=== PATIENT | female | born 1960 | race Caucasian/White ===

== ENCOUNTER 2016-07-05 13:57 | Inpatient (IN) ==
[2016-07-05] MEDS ORDERED: ASPIRIN 325 MG TABLET PO STA (14:12)
[2016-07-05] MEDS ORDERED: NITROGLYCERIN 2% OINT 1 INCH/GM PACK TOP STA (14:12)
[2016-07-05] MEDS ORDERED: ONDANSETRON 4 MG/2 ML VIAL IV PRN ×2 (14:12→15:15)
[2016-07-05] MEDS ORDERED: NITROGLYCERIN SL 0.4 MG TABLET SL PRN (14:12)
[2016-07-05] MEDS ORDERED: MORPHINE 2 MG/1 ML SYRINGE IV PRN (14:12)
--- NOTE | 2016-07-05 14:17 | EKG Report ---
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
[2016-07-05] MEDS ORDERED: ENOXAPARIN 60 MG/0.6 ML SYRINGE SUBCUT STA (14:33)
--- NOTE | 2016-07-05 14:34 | Emergency Department Note ---
Gardenia Kong Brittany, am scribing for, and in the presence of, Gian Daniels MD 14: 29. Frances Kong James D, MD, personally performed the services described in this documentation, ascribed by Elizabeth Varner in my presence, and it is both accurate and complete 433 . Arrival - Arrival Chief Complaint: Chest Pain Stated Complaint: chest and arm leg pain ED Nursing Triage Note: C/o intermittent midsternal chest pain radiating into neck-onset "months" ago. Reports pain worsens and she becomes SOB with exertion. Reports pain relief after taking sublingual NTG x's 3 last night. Mode of Arrival: Ambulatory Limitations: No Limitations Source: Patient, Old Records Reviewed, RN Notes Reviewed Time Seen by Provider: 07/05/16 14:12 - History of Present Illness HPI Narrative: This is a 56 y/o white female,who presents to the ED with c/o CP which started "years" ago. She states she was seen by Dr. Melo in 2006 for the same complaint and he was really unable to tell her what was going on. She states she was being seen by Dr. Steven until recently for back/neck problems. She states the chest pain goes down her left arm to her left leg. She states the left leg has been "going to sleep" after just sitting for a little while. She states she is SOB with the chest pain. She reports the SOB is worse with exertion. She gets diaphoretic with the chest pain as well. The chest pain is worse when laying down as well. She reports she was having a Carotid Artery US today and wanted to be seen in the ED. She reports she is scared and wants answers to why she is having the chest pain. Patient was seen in [address] Melo and underwent a stress test which was positive for anterolateral ischemia but patient did not want to undergo left heart cath. The patient did have some chest pain at rest last night for which she took 3 nitroglycerin and had relief of her pain. Pt has other complaints/pain in the ED at this time. Pt armstrong a PMHx of HTN and back/neck problems. Pt has had a hysterectomy. Pt denies a family medical HX. Pt is a current every day smoker. Onset (ago): year(s) ("Years" Per pt) Consistency: constant Severity: moderate Date of Last Menstrual Period: hysterectomy Allergies/Adverse Reactions: Allergies Allergy/AdvReac Type Severity Reaction Status Date / Time Erythromycin Base Allergy RASH Verified 07/05/16 14:08 latex Allergy RASH Verified 07/05/16 14:08 Review of System - Review of System 12 point system: reviewed and no additional remarkable complaints except as stated - Review of System Cardiovascular: Present: chest pain, dyspnea on exertion, orthopnea Medical,Surgical,& Family Hx - Medical History Cardio: History of: Hypertension Musculoskeletal: History of: Back/Neck Problems - Surgical History Reproductive Surgeries: Surgical HX of;: Hysterectomy - Social History Smoking Status: Current every day smoker Frequency of Alcohol Use: None Type of Drug Use: None Exam Vital Signs: Vital Signs Temperature 98.5 F 07/05/16 14:03 Pulse Rate 93 H 07/05/16 14:03 Respiratory Rate 14 07/05/16 14:16 Blood Pressure 111/57 07/05/16 14:03 O2 Sat by Pulse Oximetry 98 07/05/16 14:03 GENERAL: This is a well-nourished well-developed white female in no apparent distress. Patient became tearful during interview. VITAL SIGNS: Reviewed HEENT: Head is atraumatic and normocephalic. Pupils are equal round react to light. Extraocular movements are intact. Oropharynx is benign with moist mucous membranes. NECK: Neck is soft and supple without tenderness. There are no masses. There is no lymphadenopathy. LUNGS: Lungs are clear to auscultation. Chest rises symmetrically. There is no chest wall tenderness. CV: Heart is regular rate and rhythm without murmurs rubs or gallops. ABDOMEN: Abdomen is soft, nontender to palpation. There are no abdominal abnormal masses palpated. There is no organomegaly. Bowel sounds are present and active. SKIN: Skin is warm and dry. No rash. EXTREMITIES: Patient has full range of motion without tenderness. There is no pedal edema. NEUROLOGIC: Awake alert and oriented 4. Cranial nerves II through XII are grossly intact. Motor is 5 over 5 in all extremities bilaterally. Course - Consultations Consultation #1: Cardiology was consulted. Patient will be admitted to their service. Patient needs to undergo left heart cath. Patient will be taken by Dr. Prather to the [facility] for left heart cath. Time: 14:43 Results - Labs CBC & BMP: 07/05/16 14:30 07/05/16 14:30 Lab Results: I have reviewed the patients labs Labs: Laboratory Tests 07/05/16 14:30 Troponin I 1.670 H - EKG EKG results: interpreted by ERMD - Impressions EKG: Normal sinus rhythm with the rate of 84, incomplete right bundle branch block, nonspecific ST-T wave changes, prolonged QT, normal axis. - Diagnostic Findings Procedure: Chest x-ray: image reviewed by me Disposition Clinical Impression: Chest pain, Nicotine dependence, History of hyperlipidemia, ACS (acute coronary syndrome) Case discussed with: patient Disposition: Still a Patient Condition: Stable Time of Disposition: 14:38
[2016-07-05 14:39] LABS: Basophils # 0.1 10*3/uL (0.0-0.2); Basophils % 0.5 % (0.0-0.8); Eosinophils # 0.1 10*3/uL (0.0-0.87); Eosinophils % 0.8 % (0.00-10.9); Hematocrit 33.8 VOL% (35.7-47.0); Hemoglobin 11.2 GM/DL (12.0-16.0); Immature Granulocytes % 0.4 %; Immature Granulocytes Absolute 0.04 #; Lymphocytes # 1.7 10*3/uL (1.4-4.0); Lymphocytes % 16.6 % (21.3-54.2); Mean Corpuscular HGB Conc 33.1 GM/DL (32-36); Mean Corpuscular Hemoglobin 31 PG (27-34); Mean Corpuscular Volume 92.3 FL (87-102); Mean Platelet Volume 10.5 FL (9.6-12.0); Monocytes # 0.7 10*3/uL (0.11-0.8); Monocytes % 7.1 % (1.7-12.7); Neutrophils # 7.6 10*3/uL (1.4-7.4); Neutrophils % 74.6 % (38.7-73.9); Platelet Count 214 10*3/uL (130-400); Red Blood Count 3.66 10*6/uL (3.8-5.5); Red Cell Distribution Width 13.9 % (9.3-17.3); White Blood Count 10.2 10*3/uL (4.5-13.71)
[2016-07-05] MEDS ORDERED: NITROGLYCERIN 2% OINT 1 INCH/GM PACK TOP ONE (14:48)
[2016-07-05] MEDS ORDERED: ENOXAPARIN 60 MG/0.6 ML SYRINGE ONE (14:48)
[2016-07-05] MEDS ORDERED: ASPIRIN 325 MG TABLET ONE (14:48)
[2016-07-05 14:49] LABS: PT Patient Result 10.6 SECS; Partial Thromboplastin Time 27.3 SECS (0-40)
[2016-07-05 15:00] LABS: Alanine Aminotransferase 13 U/L (13-56); Albumin 3.5 G/DL (3.4-5.0); Alkaline Phosphatase 101 U/L (45-117); Aspartate Amino Transferase 15 U/L (0-37); Bilirubin,Total < 0.39 MG/DL (0.2-1.0); Blood Urea Nitrogen 8 MG/DL (7-18); Calcium 8.5 MG/DL (8.5-10.1); Glucose 99 MG/DL (74-106); Osmolality,Calculated 276.4 MOS/KG (273-304); Potassium 3.4 MMOL/L (3.5-5.1); Sodium 140 MMOL/L (136-145); Total Protein 6.7 G/DL (6.4-8.3)
[2016-07-05] MEDS ORDERED: BISACODYL 5 MG TABLET PO PRN (15:15)
[2016-07-05] MEDS ORDERED: MAGNESIUM SULF RIDER 2 GM in PREMIX 1 EACH IV PRN ×2 (15:15→15:21)
[2016-07-05] MEDS ORDERED: ACETAMINOPHEN 325 MG TABLET PO PRN (15:15)
[2016-07-05] MEDS ORDERED: MAGNESIUM SULF RIDER 4 GM in PREMIX 1 EACH IV PRN (15:15)
[2016-07-05] MEDS ORDERED: DOCUSATE SODIUM 100 MG CAPSULE PO PRN (15:15)
[2016-07-05] MEDS ORDERED: ZALEPLON 5 MG CAPSULE PO PRN (15:15)
[2016-07-05] MEDS ORDERED: LACTULOSE 20 GM/30 ML UDCUP PO PRN (15:15)
[2016-07-05] MEDS ORDERED: DIAZEPAM 5 MG TABLET PO ONE (15:21)
[2016-07-05] MEDS ORDERED: POTASSIUM CHLORIDE RIDER 10 MEQ in PREMIX 1 EACH IV PRN (15:21)
[2016-07-05] MEDS ORDERED: diphenhydrAMINE CAP 25 MG CAPSULE PO ONE (15:21)
[2016-07-05] MEDS ORDERED: ASPIRIN CHEW 81 MG TABLET PO STA (15:29)
--- NOTE | 2016-07-05 15:29 | Cardiology History & Physical ---
Assessment and Plan - Time spent with patient Time spent with patient: Less than 30 minutes (1) NSTEMI (non-ST elevated myocardial infarction) Status: Acute Assessment and plan: Patient is being prepared for cardiac catheterization. Current Visit: Yes (2) Abnormal stress test Status: Chronic Assessment and plan: Abnormal stress test [address] Melo. Patient declined heart catheterization and preferred medical management. She did not return for follow -up. Current Visit: Yes (3) History of hyperlipidemia Status: Chronic Assessment and plan: Continue lipid-lowering agent. Fasting lipid profile in the morning. Current Visit: Yes (4) Nicotine dependence Status: Chronic Assessment and plan: Patient was counseled regarding the need for tobacco cessation. Current Visit: Yes Qualifiers: Nicotine product type: cigarettes History of Present Illness Chief complaint: chest pain History of present illness: Patient is being seen in the emergency department by myself and Dr. Prather. Ms. Bradshaw is a 56 year old female who saw Dr. Melo in 2013. Risk factors include: Hypertension, family history of premature coronary artery disease, tobaccoism. 2014, patient underwent nuclear stress testing which was positive suggesting inferolateral ischemia. Patient preferred medical therapy and declined cardiac catheterization. She did not return for follow-up with Dr. Melo. Patient reports that she has been having chest pain for several years. Last night, patient expressed chest pain for which she took 3 nitroglycerin and had relief of her pain. The chest discomfort is not necessarily associated with shortness of breath although she states she has been more short of breath with exertion over the past several weeks. He has chronic neck and back pain so it is difficult for her to identify whether the chest pain is radiating or not. She can identify no aggravating factors. And again, the nitroglycerin relieved the chest discomfort she had last night. At this time, she tells me she is beginning to have chest pressure in the center of her chest which had previously been relieved. She rates the discomfort as a 7 on a scale of 1-10. Her first troponin is back is noted to be 1.6. EKG does reveal abnormalities but does not reveal ST elevation. Patient is being prepped to go to the cardiac catheterization lab where Dr. Prather we'll perform cardiac catheterization. Patient has already had a 325 mg enteric-coated aspirin. She swallowed and did not achieve this. She is being given 81 mg aspirin4 tablets. She's had Lovenox And nitroglycerin paste. Blood pressure will not allow for beta jelani. Allergies Allergy/AdvReac Type Severity Reaction Status Date / Time Erythromycin Base Allergy RASH Verified 07/05/16 14:08 latex Allergy RASH Verified 07/05/16 14:08 Review of systems: REVIEW OF SYSTEMS: - Constitutional Constitutional: Present: Fatigue. Absent: syncope, anorexia, night sweats - EENT Eyes: Absent: blurry vision, loss of vision, diplopia Ears: Absent: decreased hearing, ear pain, ear discharge - Cardiovascular Cardiovascular: Present: chest pain with exertion and chest pain at rest, dyspnea on exertion. Denies edema or palpitations. - Respiratory Respiratory: Present: GABRIEL. Absent: wheezing, hemoptysis, change in phlegm color - Gastrointestinal Gastrointestinal: As constipation or abdominal pain. No hematemesis, hematochezia, melena, change in bowel habits, nausea - Genitourinary Genitourinary: Absent: difficulty urinating, dysuria, urinary hesitancy, flank pain - Musculoskeletal Musculoskeletal: Present: back pain, neck pain shoulder pain Absent: joint swelling, muscle cramps, muscle weakness - Neurological Neurological: Present: normal gait without frequent falls. Absent: dizziness, hemiparesis - Psychiatric Psychiatric: Absent: anxiety, depression, difficulty concentrating - Endocrine Endocrine: Present: fatigue. Absent: cold intolerance, heat intolerance, polyuria, polyphagia, polydipsia - Hematologic/Lymphatic Hematologic/Lymphatic: Present: easy bruising. Absent: easy bleeding -Integumentary Integumentary: Absent: lesions, rashes, skin breakdown My physical Medical,Surgical,& Family Hx - Medical History Cardio: History of: Hypertension No history of: [place] Musculoskeletal: History of: Back/Neck Problems - Surgical History Reproductive Surgeries: Surgical HX of;: Hysterectomy - Social History Smoking Status: Current every day smoker Have you smoked in the last 12 months: Yes Time spent discussing smoking cessation with patient: 3 to 10 minutes Frequency of Alcohol Use: None Type of Drug Use: None Marital Status: Lives With:: Spouse Functional capacity: independent ambulation Cardiology Physical Exam - Constitutional Vitals: Vital Signs Temp Pulse Resp BP Pulse Ox 98.5 F 93 H 14 111/57 98 07/05/16 14:03 07/05/16 14:03 07/05/16 14:16 07/05/16 14:03 07/05/16 14:03 Intake and Output 07/04/16 07/05/16 07/05/16 23:59 07:59 15:59 Other: Weight 58.967 kg Patient Weight 07/05/16 23:59 Weight 58.967 kg Exam: General: Appears well with no apparent distress. Pleasant and cooperative. Appears comfortable. HEENT: PERRL, normocephalic, atraumatic. Mucous membranes moist. No jaundice noted. Conjunctiva moist and clear, sclerae anicteric Neck: No JVD/HJR, no thyromegaly or lymphadenopathy noted. No carotid bruit appreciated Cardiac: Regular rate and rhythm. No murmur rub or gallop. Lungs: Clear to auscultation without accessory muscle use to assist the respiratory pattern. Wearing oxygen. Abdomen: Soft, bowel sounds normoactive. Nontender and nondistended. No abdominal bruit or thrill noted. No masses noted. Musculoskeletal: No fluid collection. Decreased range of motion is noted. Extremities: No clubbing, cyanosis noted. No edema noted. Upper extremity pulses 2+. Lower extremity pulses 2+. Capillary refill less than 3 seconds. Skin: No unusual lesions or rashes. No skin breakdown appreciated. Neuro: Awake, alert and oriented 3. Moves all extremities well without hemiparesis or paralysis. No essential tremor is appreciated. Result/EKG - Labs CBC & BMP: 07/05/16 14:30 07/05/16 14:30 Lab Results: I have reviewed the past 24 hour labs Labs: Laboratory Results - last 24 hr 07/05/16 07/05/16 07/05/16 14:30 14:30 14:30 WBC 10.2 RBC 3.66 L Hgb 11.2 L Hct 33.8 L MCV 92.3 MCH 31 MCHC 33.1 RDW 13.9 Plt Count 214 MPV 10.5 Neut % (Auto) 74.6 H Lymph % (Auto) 16.[address] [place] % (Auto) 7.1 Eos % (Auto) 0.8 Baso % (Auto) 0.5 Neut # (Auto) 7.6 H Lymph # (Auto) 1.7 [place] # (Auto) 0.7 Eos # (Auto) 0.1 Baso # (Auto) 0.1 Immature Gran % 0.4 Nucleated RBC % 0.0 Immature Gran # 0.04 Nucleated RBCs # 0.00 INR 1.0 PT Patient/Control Mix 10.6 Circ Anticoag PTT 27.3 Sodium 140 Potassium 3.4 L Chloride 103 Carbon Dioxide 24 Anion Gap 16.4 H BUN 8 Creatinine 0.90 GFR Calculation 66 BUN/Creatinine Ratio 8.00 Glucose 99 Calculated Osmolality 276.4 Calcium 8.5 Total Bilirubin < 0.39 AST 15 ALT 13 Alkaline Phosphatase 101 Troponin I Total Protein 6.7 Albumin 3.5 Globulin 3.2 Albumin/Globulin Ratio 1.0 L 07/05/16 14:30 WBC RBC Hgb Hct MCV MCH MCHC RDW Plt Count MPV Neut % (Auto) Lymph % (Auto) [place] % (Auto) Eos % (Auto) Baso % (Auto) Neut # (Auto) Lymph # (Auto) [place] # (Auto) Eos # (Auto) Baso # (Auto) Immature Gran % Nucleated RBC % Immature Gran # Nucleated RBCs # INR PT Patient/Control Mix Circ Anticoag PTT Sodium Potassium Chloride Carbon Dioxide Anion Gap BUN Creatinine GFR Calculation BUN/Creatinine Ratio Glucose Calculated Osmolality Calcium Total Bilirubin AST ALT Alkaline Phosphatase Troponin I 1.670 H Total Protein Albumin Globulin Albumin/Globulin Ratio - Diagnostic Findings Procedure: Chest x-ray: report reviewed by me - EKG EKG results: interpreted by me EKG shows: sinus rhythm
[2016-07-05] MEDS ORDERED: SODIUM CHLORIDE 0.45% 1,000 ML IV SCH (15:30)
[2016-07-05] MEDS ORDERED: diphenhydrAMINE CAP 50 MG CAPSULE ONE (15:31)
[2016-07-05] MEDS ORDERED: LIDOCAINE 1% 20 ML VIAL ONE (15:35)
[2016-07-05] MEDS ORDERED: MEPERIDINE 25 MG/1 ML VIAL ONE (15:45)
[2016-07-05] MEDS ORDERED: MIDAZOLAM 2 MG/2 ML VIAL ONE (15:45)
[2016-07-05 15:49] LABS: Apearance,Urine CLEAR (Clear); Bilirubin,Urine Negative (Negative); Blood, Urine Negative (Negative); Glucose,Urine (UA) Negative (Negative); Ketones,Urine Negative (Negative); Nitrite,Urine Negative (Negative); Protein,Urine Negative; Urine Color Colorless (Yellow); Urine Specific Gravity 1.001 (1.001-1.035); Urine Urobilinogen < 2.0 EU/DL (0.2-1.0); WBC,Urine <1 /HPF (0-6)
--- NOTE | 2016-07-05 15:50 | XRay Report ---
Exam: XR chest 1V portable Date: 07/05/2016 2:12 PM Indication: Chest pain Comparison: AP portable Technical: AP portable Findings: Cardiomegaly is present. Mild interstitial thickening present. No obvious effusions. ASVD is present. Bony structures are unremarkable. No pneumothorax. No consolidating pulmonary infiltrate. Impression: 1. Cardiomegaly with mild interstitial edema PROCEDURE INTERPRETED AT [facility] DEPARTMENT OF RADIOLOGY Final Report Signed by: Dr. Francisco Ward
--- NOTE | 2016-07-05 15:52 | History and Physical Update ---
Sedation H&P Update - History and Physical H&P was reviewed, the patient examined and there: are no changes in the patients condition since last H&P was completed. - Dictation Physical: refer to H&P completed by admitting physician - Physical Exam Mental Status: alert and oriented Heart: regular rate and rhythm Lung: clear to auscultation Abdomen: within normal limits Vitals: within normal limits - Sedation Plan for Sedation: minimal Patient Consent: Procedure disscussed with patient and patinet has consented., Risks and benefits were discussed with patient,including infection,, bleeding, injury to surrounding structures, seizure, temporary nerve, Patient understands and accepts potential risks/benefits and agrees to, proceed. ASA Class: III Airway Assessment: Class II: Soft palate, uvula, fauces visible
[2016-07-05] MEDS ORDERED: methylPREDNISolone SOD SUC 125 MG/2 ML VIAL ONE (15:53)
[2016-07-05 15:58] LABS: Barbiturates Screen,Urine Negative (Negative); Benzodiazepines Screen,Urine Negative (Negative); Cannabinoid Screen,Urine Negative (Negative); Opiate Screen,Urine Negative (Negative); Phencyclidine Screen,Urine Negative (Negative)
[2016-07-05] MEDS ORDERED: HEPARIN/NACL 0.9% 2 UNITS/ML 500 ML IV ONE (16:34)
[2016-07-05] MEDS ORDERED: CARVEDILOL 6.25 MG TABLET PO SCH ×3 (16:50→23:00)
--- NOTE | 2016-07-05 16:57 | Operative Note ---
Date of procedure: 07/05/16 Procedure Preformed: Left heart cath Left ventriculography Coronary angiography Angiogram of the right femoral artery Placement of intra-aortic balloon pump-4 post infarction angina, left main coronary disease, LV dysfunction, 2+ MR, LVEDP Surgeon / Physician: Armaan Prather Locks Tender: Yuli Gordillo Post-op diagnosis: same (Status post non-Q-wave CT, postinfarction angina, smoker,) Findings: Impression: Significant left main coronary disease-ostial, 70%, dampening of pressure with the engagement of the catheter Occluded left circumflex with some left to left and [id number] collaterals Occluded right coronary-proximal with right to right and [id number] collaterals Moderately severe left ventricular systolic dysfunction, LVEF is 30% 2+ mitral regurgitation Severe elevation of LVEDP, 35-40 mmHg Angiogram the femoral artery Placement of intra-aortic balloon pump-for postinfarction angina, LV systolic dysfunction, high LVEDP, 2+ MR Plan/recommendations: The patient will have risk factors optimized. I discussed with her about trying to stop smoking. I will check her lipids and treatment guidelines. Regarding her coronary disease, it will require coronary bypass grafting. Dr. Doe Correia has been consulted. With the balloon pump, postinfarction angina has gone. There is probably in part related to relief of the high LVEDP. The patient will be on antiplatelet medications to include aspirin indefinitely. Follow-up will be scheduled. My post-cath check to Addenda: I saw the patient post-cath. the groin puncture site and distal pulse are stable. vital signs are stable and the patient will be observed closely overnight. Specimens: none sent Estimated blood loss: minimal Condition: other (guarded) Anesthesia: local, conscious sedation Disposition: ICU
[2016-07-05] MEDS ORDERED: GLUCAGON 1 MG VIAL IM PRN ×2 (17:29→17:37)
[2016-07-05] MEDS ORDERED: DEXTROSE 50% 25 GM/50 ML VIAL IV PRN ×2 (17:29→17:37)
[2016-07-05] MEDS ORDERED: CEFUROXIME INJ 1,500 MG in SODIUM CHLORIDE 0.9% 100 ML IV ONE (17:29)
--- NOTE | 2016-07-05 17:29 | Cardiothoracic Progress Note ---
Cardiothoracic Subjective Interval history: Patient is a 56-year-old lady with substernal chest discomfort and cardiac catheterization today demonstrating critical left main coronary stenosis in the presence of a right coronary occlusion. Patient is presently stable on the intra-aortic balloon pump and will be scheduled for surgery in the morning. Discussed in detail with the patient and she agrees. Exam (Progress Note) - Constitutional Vitals: Period Temp Pulse Resp BP Sys/Briones Pulse Ox Last 24 Hr 98.5 F-98.5 F 83-94 14-18 105-111/57-90 98-99 Result/EKG - Labs CBC & BMP: 07/05/16 14:30 07/05/16 14:30 Labs: Laboratory Results - last 24 hr 07/05/16 07/05/16 07/05/16 14:30 14:30 14:30 WBC 10.2 RBC 3.66 L Hgb 11.2 L Hct 33.8 L MCV 92.3 MCH 31 MCHC 33.1 RDW 13.9 Plt Count 214 MPV 10.5 Neut % (Auto) 74.6 H Lymph % (Auto) 16.6 L [place] % (Auto) 7.1 Eos % (Auto) 0.8 Baso % (Auto) 0.5 Neut # (Auto) 7.6 H Lymph # (Auto) 1.7 [place] # (Auto) 0.7 Eos # (Auto) 0.1 Baso # (Auto) 0.1 Immature Gran % 0.4 Nucleated RBC % 0.0 Immature Gran # 0.04 Nucleated RBCs # 0.00 INR 1.0 PT Patient/Control Mix 10.6 Circ Anticoag PTT 27.3 Sodium 140 Potassium 3.4 L Chloride 103 Carbon Dioxide 24 Anion Gap 16.4 H BUN 8 Creatinine 0.90 GFR Calculation 66 BUN/Creatinine Ratio 8.00 Glucose 99 Calculated Osmolality 276.4 Calcium 8.5 Total Bilirubin < 0.39 AST 15 ALT 13 Alkaline Phosphatase 101 Troponin I Total Protein 6.7 Albumin 3.5 Globulin 3.2 Albumin/Globulin Ratio 1.0 L Urine Color Urine Appearance Urine pH Ur Specific [place] Urine Protein Urine Glucose (UA) Urine Ketones Urine Blood Urine Nitrate Urine Bilirubin Urine Urobilinogen Urine Leukocytes Urine WBC Ur Culture Indicated? Urine Opiates Screen Ur Barbiturates Screen Ur Phencyclidine Scrn U Amphetamine/Methamph U Benzodiazepines Scrn U Cocaine Metab Screen U Cannabinoids Screen 07/05/16 07/05/16 07/05/16 14:30 15:30 15:30 WBC RBC Hgb Hct MCV MCH MCHC RDW Plt Count MPV Neut % (Auto) Lymph % (Auto) [place] % (Auto) Eos % (Auto) Baso % (Auto) Neut # (Auto) Lymph # (Auto) [place] # (Auto) Eos # (Auto) Baso # (Auto) Immature Gran % Nucleated RBC % Immature Gran # Nucleated RBCs # INR PT Patient/Control Mix Circ Anticoag PTT Sodium Potassium Chloride Carbon Dioxide Anion Gap BUN Creatinine GFR Calculation BUN/Creatinine Ratio Glucose Calculated Osmolality Calcium Total Bilirubin AST ALT Alkaline Phosphatase Troponin I 1.670 H Total Protein Albumin Globulin Albumin/Globulin Ratio Urine Color Colorless Urine Appearance Clear Urine pH 5.0 Ur Specific [place] 1.001 Urine Protein Negative Urine Glucose (UA) Negative Urine Ketones Negative Urine Blood Negative Urine Nitrate Negative Urine Bilirubin Negative Urine Urobilinogen < 2.0 H Urine Leukocytes Negative Urine WBC <1 Ur Culture Indicated? Not indicated Urine Opiates Screen Negative Ur Barbiturates Screen Negative Ur Phencyclidine Scrn Negative U Amphetamine/Methamph Negative U Benzodiazepines Scrn Negative U Cocaine Metab Screen Negative U Cannabinoids Screen Negative
[2016-07-05] MEDS ORDERED: SODIUM CHLORIDE 0.9% 1,000 ML IV SCH ×2 (17:30)
[2016-07-05] MEDS: CARVEDILOL 3.125 MG TABLET PO SCH (18:18)
[2016-07-05 18:29] LABS: Basophils % 0.2 % (0.0-0.8); Eosinophils % 0.3 % (0.00-10.9); Hematocrit 33.1 VOL% (35.7-47.0); Hemoglobin 10.8 GM/DL (12.0-16.0); Immature Granulocytes % 0.7 %; Lymphocytes # 0.4 10*3/uL (1.4-4.0); Lymphocytes % 2.9 % (21.3-54.2); Mean Corpuscular HGB Conc 32.6 GM/DL (32-36); Mean Corpuscular Hemoglobin 30 PG (27-34); Mean Platelet Volume 10.6 FL (9.6-12.0); Monocytes # 0.3 10*3/uL (0.11-0.8); Monocytes % 2.2 % (1.7-12.7); Neutrophils # 14.1 10*3/uL (1.4-7.4); Neutrophils % 93.7 % (38.7-73.9); Platelet Count 222 10*3/uL (130-400); Red Blood Count 3.56 10*6/uL (3.8-5.5)
[2016-07-05 18:39] LABS: ABG Base Excess 0.3 MMOL/L (-2.5-2.5); ABG HCO3 24.3 MMOL/L (20-26); ABG Oxygen Saturation 94.6 % (95-100); ABG PCO2 37.1 MM HG (35-48); ABG PH 7.434 (7.35-7.45); ABG PO2 74.9 MM HG (80-95); ABG TCO2 25.4 MMOL/L (23-27)
--- NOTE | 2016-07-05 18:55 | Cardiology Operative Report ---
Date of Procedure:: 07/05/16 Post-op diagnosis: same (Status post non-Q-wave VA, postinfarction angina, smoker,) Procedure: Date of procedure: 07/05/16 Procedure Preformed: Left heart cath Left ventriculography Coronary angiography Angiogram of the right femoral artery Placement of intra-aortic balloon pump-4 post infarction angina, left main coronary disease, LV dysfunction, 2+ MR, high LVEDP Surgeon / Physician: Armaan Prather Branch Service Specialist: Yuli Gordillo Post-op diagnosis: same (Status post non-Q-wave VA, postinfarction angina, smoker,) procedure: The patient was prepped and draped in usual manner. Entered the right femoral artery via the Seldinger technique. I used a sheath and then used a JL4 and engaged left coronary. Multiple views were taken. I then exchanged for a JR4. Multiple views of the right coronary were taken. I then exchanged for an angled pigtail. I crossed the valve. Left ventricular end-diastolic pressures measured. Left ventriculography was done. Left ventricle pullback was done. The catheters were then removed from the patient. It was then decided that was indicated to place an intra-aortic balloon pump for her left main disease, LV dysfunction, high LVEDP, and ongoing chest pain. A balloon pump was placed via the right femoral artery , sheathless. The position was confirmed under fluoroscopy. It was then sewn into place. Dr. Correia was called to consult about the critical coronary disease please see the cath data sheets for the details of catheters used. Complications: None Hemodynamic data: LVEDP was 35-40 mmHg. Angiographic data: The left main coronary was large and had an ostial 70% or greater narrowing. There was some ventricularization of the pressure when it was engaged. The left anterior descending artery was large and there are minimal luminal irregularities. The left circumflex system was moderate to large. It is occluded proximally. . Otherwise there are minimal luminal irregularities in the circumflex The right coronary artery was large in size, dominant vessel with the PDA. It was occluded proximally. There were right to right and right to left collaterals. There were [id number] collaterals, also COBURN left ventriculography revealed moderately severe global left ventricular systolic dysfunction. Overall ejection fraction was about 30%. There is moderate LV enlargement. There is 2+ mitral regurgitation. Angiogram of the right femoral artery revealed the puncture site to be in a large vessel, above the bifurcation. It was suitable for Angio-Seal. Fluoroscopy of the intra-aortic balloon pump After was placed was done. Findings: Impression: Significant left main coronary disease-ostial, 70%, dampening of pressure with the engagement of the catheter Occluded left circumflex with some left to left and [id number] collaterals Occluded right coronary-proximal with right to right and [id number] collaterals Moderately severe left ventricular systolic dysfunction, LVEF is 30% 2+ mitral regurgitation Severe elevation of LVEDP, 35-40 mmHg Angiogram the femoral artery Placement of intra-aortic balloon pump-for postinfarction angina, LV systolic dysfunction, high LVEDP, 2+ MR Plan/recommendations: The patient will have risk factors optimized. I discussed with her about trying to stop smoking. I will check her lipids and treatment guidelines. Regarding her coronary disease, it will require coronary bypass grafting. Dr. Doe Correia has been consulted. With the balloon pump, postinfarction angina has gone. There is probably in part related to relief of the high LVEDP. The patient will be on antiplatelet medications to include aspirin indefinitely. Follow-up will be scheduled. My post-cath check to Addenda: I saw the patient post-cath. the groin puncture site and distal pulse are stable. vital signs are stable and the patient will be observed closely overnight. Specimens: none sent Estimated blood loss: minimal Condition: other (guarded) Anesthesia: local, conscious sedation Disposition: ICU Additional CC's: Jose L Melo Anesthesia: local, minimal conscious sedation Surgeon / Physician: Armaan Prather Branch Service Specialist: other Estimated blood loss: minimal Specimens: none sent Condition: other (guarded) Disposition: ICU/CCU
[2016-07-05 18:57] LABS: Albumin 3.2 G/DL (3.4-5.0); Bilirubin,Total 0.4 MG/DL (0.2-1.0); Calcium 8.1 MG/DL (8.5-10.1); Potassium 3.9 MMOL/L (3.5-5.1); Total Protein 6.2 G/DL (6.4-8.3)
[2016-07-05 19:34] LABS: Risk Ratio 3.69
[2016-07-05] MEDS: ENOXAPARIN 40 MG/0.4 ML SYRINGE SUBCUT SCH (20:18)
[2016-07-05 20:43] LABS: Lymphocytes 3 % (20-55); Segmented Neutrophils 96 % (50-85); Total Cells Counted 100
[2016-07-05 20:44] LABS: Platelet Estimate Normal
[2016-07-05] MEDS ORDERED: CHLORHEXIDINE 0.12% ORAL RINSE 60 ML BOTTLE SWISH/SPIT SCH (21:00)
[2016-07-05] MEDS ORDERED: CHLORHEXIDINE 4% SOLN 118 ML BOTTLE TOP SCH (21:00)
[2016-07-05] MEDS: GABAPENTIN 300 MG CAPSULE PO SCH (21:09)
[2016-07-05] MEDS: CHLORHEXIDINE 0.12% ORAL RINSE 60 ML BOTTLE SWISH/SPIT SCH (21:09)
[2016-07-05] MEDS: CHLORHEXIDINE 4% SOLN 118 ML BOTTLE TOP SCH (21:10)
[2016-07-06] MEDS: NITROGLYCERIN SL 0.4 MG TABLET SL PRN ×3 (00:15→00:27)
[2016-07-06] MEDS: CARVEDILOL 3.125 MG TABLET PO SCH ×2 (00:15→05:37)
[2016-07-06] MEDS ORDERED: MORPHINE 2 MG/1 ML SYRINGE ONE ×2 (00:48→04:33)
[2016-07-06] MEDS: MORPHINE 2 MG/1 ML SYRINGE IV PRN ×4 (00:49→18:33)
[2016-07-06 05:09] LABS: Calcium 8.1 MG/DL (8.5-10.1); Osmolality,Calculated 283.1 MOS/KG (273-304); Potassium 4.4 MMOL/L (3.5-5.1)
[2016-07-06] MEDS ORDERED: PAPAVERINE 60 MG/2 ML VIAL ONE (05:13)
[2016-07-06] MEDS ORDERED: VANCOMYCIN 1,000 MG VIAL ONE (05:13)
[2016-07-06] MEDS ORDERED: CEFUROXIME INJ 1,500 MG in SODIUM CHLORIDE 0.9% 100 ML IV ONE (06:00)
[2016-07-06] MEDS ORDERED: DIAZEPAM 5 MG TABLET PO ONE (06:13)
[2016-07-06] MEDS ORDERED: FAMOTIDINE 20 MG/2 ML VIAL IV ONE (06:13)
--- NOTE | 2016-07-06 06:26 | Cardiothoracic Progress Note ---
Cardiothoracic Subjective Interval history: Patient is ready for surgery this morning. Her clotting studies do show that she has moderate bilateral carotid disease. This will need to be followed up with follow-up studies but I think that we can proceed with her urgent bypass surgery today. We will try to make every effort to maintain adequate blood pressure and cerebral perfusion. Exam (Progress Note) - Constitutional Vitals: Period Temp Pulse Resp BP Sys/Briones Pulse Ox Last 24 Hr 98 F-98.4 F 65-86 17-28 100-149/49-94 90-98 Result/EKG - Labs CBC & BMP: 07/05/16 18:17 07/06/16 03:48 Labs: Laboratory Results - last 24 hr 07/05/16 07/05/16 07/05/16 18:14 18:14 18:17 WBC RBC Hgb Hct MCV MCH MCHC RDW Plt Count MPV Neut % (Auto) Lymph % (Auto) [place] % (Auto) Eos % (Auto) Baso % (Auto) Neut # (Auto) Lymph # (Auto) [place] # (Auto) Eos # (Auto) Baso # (Auto) Total Counted Immature Gran % Nucleated RBC % Immature Gran # Segmented Neutrophils Lymphocytes Monocytes Nucleated RBCs # Platelet Estimate ABG pH ABG pCO2 ABG pO2 ABG HCO3 ABG Total CO2 ABG O2 Saturation ABG Base Excess Sodium Potassium Chloride Carbon Dioxide Anion Gap BUN Creatinine GFR Calculation BUN/Creatinine Ratio Glucose Hemoglobin A1c Calculated Osmolality Calcium Magnesium 2.3 Total Bilirubin AST ALT Alkaline Phosphatase Total Creatine Kinase 74 CK-MB (CK-2) 2.6 Troponin I 1.960 H Total Protein Albumin Globulin Albumin/Globulin Ratio Triglycerides 155 H Cholesterol 177 LDL Cholesterol 97.0 VLDL Cholesterol 31.0 HDL Cholesterol 48 Heart Disease Risk Ratio 3.69 Blood Type Antibody Screen Crossmatch 07/05/16 07/05/16 07/05/16 18:17 18:17 18:17 WBC 15.0 H D RBC 3.56 L Hgb 10.8 L Hct 33.1 L MCV 93.0 MCH 30 MCHC 32.6 RDW 14.0 Plt Count 222 MPV 10.6 Neut % (Auto) 93.7 H Lymph % (Auto) 2.9 L [place] % (Auto) 2.2 Eos % (Auto) 0.3 Baso % (Auto) 0.2 Neut # (Auto) 14.1 H Lymph # (Auto) 0.4 L [place] # (Auto) 0.3 Eos # (Auto) 0.0 Baso # (Auto) 0.0 Total Counted 100 Immature Gran % 0.7 Nucleated RBC % 0.0 Immature Gran # 0.10 Segmented Neutrophils 96 H Lymphocytes 3 L Monocytes 1 L Nucleated RBCs # 0.00 Platelet Estimate Normal ABG pH ABG pCO2 ABG pO2 ABG HCO3 ABG Total CO2 ABG O2 Saturation ABG Base Excess Sodium 143 Potassium 3.9 Chloride 107 Carbon Dioxide 24 Anion Gap 15.9 H BUN 8 Creatinine 0.90 GFR Calculation 66 BUN/Creatinine Ratio 8.00 Glucose 111 H Hemoglobin A1c Calculated Osmolality 283.0 Calcium 8.1 L Magnesium Total Bilirubin 0.40 AST 12 ALT 14 Alkaline Phosphatase 104 Total Creatine Kinase CK-MB (CK-2) Troponin I Total Protein 6.2 L Albumin 3.2 L Globulin 3.0 Albumin/Globulin Ratio 1.0 L Triglycerides Cholesterol LDL Cholesterol VLDL Cholesterol HDL Cholesterol Heart Disease Risk Ratio Blood Type A POSITIVE Antibody Screen Negative Crossmatch See Detail 07/05/16 07/05/16 07/06/16 18:34 18:34 01:01 WBC RBC Hgb Hct MCV MCH MCHC RDW Plt Count MPV Neut % (Auto) Lymph % (Auto) [place] % (Auto) Eos % (Auto) Baso % (Auto) Neut # (Auto) Lymph # (Auto) [place] # (Auto) Eos # (Auto) Baso # (Auto) Total Counted Immature Gran % Nucleated RBC % Immature Gran # Segmented Neutrophils Lymphocytes Monocytes Nucleated RBCs # Platelet Estimate ABG pH 7.434 ABG pCO2 37.1 ABG pO2 74.9 L ABG HCO3 24.3 ABG Total CO2 25.4 ABG O2 Saturation 94.6 L ABG Base Excess 0.3 Sodium Potassium Chloride Carbon Dioxide Anion Gap BUN Creatinine GFR Calculation BUN/Creatinine Ratio Glucose Hemoglobin A1c Calculated Osmolality Calcium Magnesium Total Bilirubin AST ALT Alkaline Phosphatase Total Creatine Kinase 66 CK-MB (CK-2) 2.1 Troponin I 1.540 H D Total Protein Albumin Globulin Albumin/Globulin Ratio Triglycerides Cholesterol LDL Cholesterol VLDL Cholesterol HDL Cholesterol Heart Disease Risk Ratio Blood Type A POSITIVE Antibody Screen Crossmatch 07/06/16 07/06/16 03:48 03:48 WBC RBC Hgb Hct MCV MCH MCHC RDW Plt Count MPV Neut % (Auto) Lymph % (Auto) [place] % (Auto) Eos % (Auto) Baso % (Auto) Neut # (Auto) Lymph # (Auto) [place] # (Auto) Eos # (Auto) Baso # (Auto) Total Counted Immature Gran % Nucleated RBC % Immature Gran # Segmented Neutrophils Lymphocytes Monocytes Nucleated RBCs # Platelet Estimate ABG pH ABG pCO2 ABG pO2 ABG HCO3 ABG Total CO2 ABG O2 Saturation ABG Base Excess Sodium 142 Potassium 4.4 Chloride 106 Carbon Dioxide 21 Anion Gap 19.4 H BUN 11 Creatinine 0.80 GFR Calculation 78 BUN/Creatinine Ratio 13.00 Glucose 130 H Hemoglobin A1c 6.0 Calculated Osmolality 283.1 Calcium 8.1 L Magnesium Total Bilirubin AST ALT Alkaline Phosphatase Total Creatine Kinase CK-MB (CK-2) Troponin I Total Protein Albumin Globulin Albumin/Globulin Ratio Triglycerides Cholesterol LDL Cholesterol VLDL Cholesterol HDL Cholesterol Heart Disease Risk Ratio Blood Type Antibody Screen Crossmatch Quality Measures - VTE Contraindication to Pharmacological VTE Prophylaxis: High Risk of Bleeding
[2016-07-06] MEDS ORDERED: AMINOCAPROIC ACID 5,000 MG/20 ML VIAL IV ONE (06:48)
[2016-07-06] MEDS ORDERED: LIDOCAINE 1% 5 ML VIAL ONE (06:48)
[2016-07-06] MEDS ORDERED: CALCIUM CHLORIDE 1,000 MG/10 ML SYRINGE IV ONE ×2 (06:48→07:51)
[2016-07-06] MEDS ORDERED: VECURONIUM 10 MG VIAL IV ONE (06:48)
[2016-07-06] MEDS ORDERED: SODIUM BICARBONATE 50 MEQ/50 ML VIAL IV ONE ×2 (07:51→10:18)
[2016-07-06] MEDS ORDERED: PHENYLEPHRINE DRIP 40 MG/250 ML PREMIX IV ONE (07:51)
[2016-07-06] MEDS ORDERED: NITROPRUSSIDE 50 MG/2 ML VIAL ONE (07:51)
[2016-07-06] MEDS ORDERED: POTASSIUM CHLORIDE RIDER 100 ML IV ONE (07:52)
[2016-07-06] MEDS ORDERED: ALBUMIN 5% 12.5 GM/250 ML VIAL IV ONE (07:52)
[2016-07-06 08:01] LABS: ABG Base Excess -1.8 MMOL/L (-2.5-2.5); ABG HCO3 21.8 MMOL/L (20-26); ABG Oxygen Saturation 99.2 % (95-100); ABG PCO2 32.4 MM HG (35-48); ABG PH 7.445 (7.35-7.45); ABG PO2 417.6 MM HG (80-95); ABG TCO2 22.8 MMOL/L (23-27); Glucose Heart Surgery 123 MG/DL (74-106); Hemoglobin Heart Surgery 10.1 G/DL (12.0-16.0); Ionized Calcium Arterial 1.04 MMOL/L (1.21-1.46); PCO2 Patient Temp Arterial 32.4 MMHG; PH Patient Temp Arterial 7.445; PO2 Patient Temp Arterial 417.6 MM HG; Patient Temperature 37 CELCIUS; Potassium Heart/CVR 4.2 MMOL/L (3.5-5.1); Sodium Heart/CVR 138 MMOL/L (135-145)
[2016-07-06] MEDS ORDERED: ASPIRIN CHEW 81 MG TABLET PO SCH (09:00)
[2016-07-06] MEDS ORDERED: PANTOPRAZOLE 40 MG TABLET PO SCH (09:00)
[2016-07-06 09:03] LABS: Hemoglobin Heart Surgery 8.3 G/DL (12.0-16.0); PH Patient Temp Venous 7.431; PO2 Patient Temp Venous 37.2 MM HG; Potassium Heart/CVR 5.1 MMOL/L (3.5-5.1); VBG Base Excess -2.6 MEQ/L (0-4); VBG HCO3 22.1 MEQ/L (24-28); VBG Oxygen Saturation 80.5 %; VBG PCO2 37.6 MMHG (41-51); VBG PH 7.387; VBG PO2 45.9 MMHG (17-40)
[2016-07-06 09:36] LABS: Hemoglobin Heart Surgery 8.3 G/DL (12.0-16.0); PH Patient Temp Venous 7.433; PO2 Patient Temp Venous 37.3 MM HG; Potassium Heart/CVR 5.5 MMOL/L (3.5-5.1); VBG Base Excess -1.8 MEQ/L (0-4); VBG HCO3 22.7 MEQ/L (24-28); VBG Oxygen Saturation 77.1 %; VBG PCO2 37.1 MMHG (41-51); VBG PH 7.404; VBG PO2 42.9 MMHG (17-40)
[2016-07-06 09:37] LABS: Apearance,Urine Slightly Hazy (Clear); Bilirubin,Urine Negative (Negative); Blood, Urine Small mg/dL (Negative); Glucose,Urine (UA) Negative (Negative); Ketones,Urine 5 mg/dL (Negative); Mucus,Urine Occasional /LPF (Occasional); Nitrite,Urine Negative (Negative); Protein,Urine Negative; RBC,Urine 3 /HPF (0-4); Squamous Epithelial Cell,Urine Occasional /HPF (0-10); Urine Color Yellow (Yellow); Urine Specific Gravity 1.017 (1.001-1.035); Urine Urobilinogen < 2.0 EU/DL (0.2-1.0); WBC,Urine 11 /HPF (0-6)
[2016-07-06 10:18] LABS: ABG Base Excess -2.8 MMOL/L (-2.5-2.5); ABG HCO3 22.1 MMOL/L (20-26); ABG Oxygen Saturation 99.8 % (95-100); ABG PH 7.388 (7.35-7.45); ABG TCO2 20.1 MMOL/L (23-27); Glucose Heart Surgery 273 MG/DL (74-106); Hematocrit Heart Surgery 27.3 PERCENT (37-47); Hemoglobin Heart Surgery 8.8 G/DL (12.0-16.0); Ionized Calcium Arterial 1.24 MMOL/L (1.21-1.46); PH Patient Temp Arterial 7.388; Patient Temperature 37 CELCIUS; Potassium Heart/CVR 4.7 MMOL/L (3.5-5.1); Sodium Heart/CVR 128 MMOL/L (135-145)
[2016-07-06] MEDS ORDERED: PHENYLEPHRINE DRIP 20 MG/250 ML PREMIX IV ONE (10:18)
[2016-07-06] MEDS ORDERED: HEPARIN 10,000 UNIT/10 ML VIAL ONE (10:19)
[2016-07-06] MEDS ORDERED: PROTAMINE SULFATE 250 MG/25 ML VIAL IV ONE (10:19)
[2016-07-06] MEDS ORDERED: FUROSEMIDE 20 MG/2 ML VIAL ONE (10:19)
[2016-07-06] MEDS ORDERED: methylPREDNISolone SOD SUC 1,000 MG/8 ML VIAL ONE (10:19)
[2016-07-06] MEDS ORDERED: MAGNESIUM SULFATE 1 GM/2 ML VIAL ONE (10:19)
[2016-07-06] MEDS ORDERED: ALBUMIN 25% 25 GM/100 ML VIAL IV ONE (10:19)
[2016-07-06] MEDS ORDERED: MANNITOL 12.5 GM/50 ML VIAL IV ONE (10:19)
[2016-07-06] MEDS ORDERED: DEXTROSE 5% KCL 20 MEQ 20 MEQ/1,000 ML BAG IV ONE (10:19)
[2016-07-06] MEDS ORDERED: LACTATED RINGERS 250 ML IV PRN (10:54)
[2016-07-06] MEDS ORDERED: PHENYLEPHRINE DRIP 40 MG/250 ML PREMIX IV PRN (10:54)
[2016-07-06] MEDS ORDERED: ACETAMINOPHEN 650 MG SUPP RECTAL PRN (10:54)
[2016-07-06] MEDS ORDERED: CALCIUM CHLORIDE 1,000 MG/10 ML SYRINGE IV PRN (10:54)
[2016-07-06] MEDS ORDERED: ONDANSETRON 4 MG/2 ML VIAL IV PRN (10:54)
[2016-07-06] MEDS ORDERED: NITROPRUSSIDE 100 MG in DEXTROSE 5% 250 ML IV PRN (10:54)
[2016-07-06] MEDS ORDERED: MAGNESIUM SULF RIDER 2 GM in PREMIX 1 EACH IV PRN (10:54)
[2016-07-06] MEDS ORDERED: VECURONIUM 10 MG VIAL IV PRN ×2 (10:54)
[2016-07-06] MEDS ORDERED: INSULIN REGULAR 100 UNIT/ML IV PRN (10:54)
[2016-07-06] MEDS ORDERED: MAGNESIUM SULF RIDER 4 GM in PREMIX 1 EACH IV PRN (10:54)
[2016-07-06] MEDS ORDERED: INSULIN REGULAR 100 UNIT/ML IV ONE (10:54)
[2016-07-06] MEDS ORDERED: DEXTROSE 50% 25 GM/50 ML VIAL IV PRN ×2 (10:54)
--- NOTE | 2016-07-06 10:57 | EKG Report ---
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
[2016-07-06] MEDS ORDERED: SODIUM CHLORIDE 0.45% 1,000 ML IV SCH ×2 (11:00)
[2016-07-06] MEDS ORDERED: INSULIN REGULAR DRIP 100 ML IV SCH (11:00)
--- NOTE | 2016-07-06 11:02 | Operative Note ---
Date of procedure: 07/06/16 Pre-op diagnosis: coronary artery disease Post-op diagnosis: same Procedure: Procedure: coronary bypass grafting with grafts to the anterior descending coronary artery using the left internal mammary artery and the obtuse marginal coronary artery using a saphenous vein graft. Findings: Patient is a 56-year-old lady who presented with substernal chest pain and was found to have critical left main coronary stenosis with a totally occluded right coronary artery. At the time of surgery left ventricular function was noted to be moderately impaired with a large scar in the distribution of the right coronary artery. It was felt at the right coronary artery was not suitable for grafting. A left internal mammary graft was placed to a large anterior descending coronary artery which was free of disease site of anastomosis. Saphenous vein graft was placed to a large obtuse marginal coronary artery which likewise was free of disease at the site of anastomosis. Patient tolerated the procedure well and was returned recovery in satisfactory condition. Procedure: Patient was brought to the operating room placed on the operating table in supine position. After satisfactory induction of general anesthesia the chest abdomen and legs were prepped and draped in a sterile fashion. Greater saphenous vein was harvested from the left lower leg and prepared as an arterial graft. A standard sternotomy incision was made and the sternum was divided and the heart suspended in a pericardial cradle. Left internal mammary artery was dissected free and prepared as an arterial graft. Patient was prepared for cardiopulmonary bypass with systemic heparinization cannulation of the ascending aorta and right atrium. Cardiopulmonary bypass was begun and the heart was arrested with cardioplegia solution injected into the aortic root. The heart was protected during the period of crossclamping with topical saline slush. Distal anastomoses were constructed as noted above and a proximal anastomosis constructed between the inflow end of the saphenous vein graft and the ascending aorta. The aorta was then unclamped reestablished and cardiac action. The patient was weaned from cardiopulmonary bypass without difficulty and heparin effect was reversed with protamine. Decannulation was carried out in the defects in the ascending aorta and right atrium closed with 3-0 Prolene. The operative field was inspected for hemostasis and this was considered adequate the incision was closed with interrupted stainless steel wire and the sternum and 0 Monocryl and the presternal fascia. Skin was closed with 3-0 subcuticular Monocryl. 2 chest tubes were left in the anterior mediastinum and brought out through separate stab incisions. Patient was returned recovery in satisfactory condition. Surgeon / Physician: Doe Correia Estimated blood loss: other Condition: stable Disposition: ICU Results - Labs CBC & BMP: 07/06/16 10:10 07/06/16 03:48 Discharge Plan - Discharge Medications No Action amLODIPine [Norvasc] 10 mg PO DAILY Nitroglycerin Sl Tab [Nitrostat] 0.4 mg PO Q5M PRN PRN Reason: Chest Pain Gabapentin 300 mg PO BID predniSONE TAB [PredniSONE] See Taper PO DAILY oxyCODONE/ACETAMINOPHEN 5-325 [Percocet 5-325] 10 - 325 mg PO DAILY PRN PRN Reason: back pain - Follow Up or Referral - Forms/Instructions
[2016-07-06] MEDS ORDERED: SEVOFLURANE 1 UNIT/15 MINUTE INH ONE (11:06)
[2016-07-06] MEDS ORDERED: SODIUM CHLORIDE 0.9% 1,000 ML IV ONE (11:07)
[2016-07-06] MEDS ORDERED: SODIUM CHLORIDE 0.9% 100 ML IV ONE (11:07)
[2016-07-06] MEDS ORDERED: SODIUM CHLORIDE 0.9% 250 ML IV ONE (11:07)
[2016-07-06] MEDS ORDERED: SUFentanil 250 MCG/5 ML AMP ONE (11:07)
[2016-07-06 11:32] LABS: ABG Base Excess -1.7 MMOL/L (-2.5-2.5); ABG Oxygen Saturation 98.9 % (95-100); ABG PH 7.366 (7.35-7.45); ABG TCO2 21.4 MMOL/L (23-27); Glucose Heart Surgery 255 MG/DL (74-106); Hematocrit Heart Surgery 31.3 PERCENT (37-47); Hemoglobin Heart Surgery 10.1 G/DL (12.0-16.0); Potassium Heart/CVR 3.8 MMOL/L (3.5-5.1)
[2016-07-06] MEDS ORDERED: PROTAMINE SULFATE 50 MG/5 ML VIAL IV ONE (11:47)
[2016-07-06] MEDS: CHLORHEXIDINE 4% SOLN 118 ML BOTTLE TOP SCH (11:53)
[2016-07-06] MEDS: ENOXAPARIN 40 MG/0.4 ML SYRINGE SUBCUT SCH (11:53)
[2016-07-06] MEDS: GABAPENTIN 300 MG CAPSULE PO SCH (11:54)
[2016-07-06] MEDS: CHLORHEXIDINE 0.12% ORAL RINSE 60 ML BOTTLE SWISH/SPIT SCH ×2 (11:54→21:18)
[2016-07-06] MEDS: POTASSIUM CHLORIDE RIDER 20 MEQ in PREMIX 1 EACH IV PRN ×3 (11:54→20:04)
--- NOTE | 2016-07-06 12:00 | Cardiothoracic Progress Note ---
Cardiothoracic Subjective Interval history: [place]-James catheter placed via the right subclavian vein. Exam (Progress Note) - Constitutional Vitals: Period Temp Pulse Resp BP Sys/Briones Pulse Ox Last 24 Hr 97.9 F-98.4 F 65-86 10-28 100-160/49-94 90-100 Result/EKG - Labs CBC & BMP: 07/06/16 10:10 07/06/16 03:48 Labs: Laboratory Results - last 24 hr 07/05/16 07/05/16 07/05/16 18:14 18:14 18:17 WBC RBC Hgb Hct MCV MCH MCHC RDW Plt Count MPV Neut % (Auto) Lymph % (Auto) [place] % (Auto) Eos % (Auto) Baso % (Auto) Neut # (Auto) Lymph # (Auto) [place] # (Auto) Eos # (Auto) Baso # (Auto) Total Counted Immature Gran % Nucleated RBC % Immature Gran # Segmented Neutrophils Lymphocytes Monocytes Nucleated RBCs # Platelet Estimate Patient Temperature ABG pH ABG pH at Pt Temp ABG pCO2 ABG pCO2 at Pt Temp ABG pO2 ABG pO2 at Pt Temp ABG HCO3 ABG Total CO2 ABG O2 Saturation ABG Base Excess ABG Sodium VBG pH VBG pCO2 VBG pO2 VBG HCO3 VBG Total CO2 VBG O2 Saturation VBG Base Excess Hemoglobin Hematocrit Ionized Calcium FiO2 Sodium Potassium Chloride Carbon Dioxide Anion Gap BUN Creatinine GFR Calculation BUN/Creatinine Ratio Glucose Hemoglobin A1c Calculated Osmolality Calcium Venous Ioniz Calcium Magnesium 2.3 Total Bilirubin AST ALT Alkaline Phosphatase Total Creatine Kinase 74 CK-MB (CK-2) 2.6 Troponin I 1.960 H Total Protein Albumin Globulin Albumin/Globulin Ratio Triglycerides 155 H Cholesterol 177 LDL Cholesterol 97.0 VLDL Cholesterol 31.0 HDL Cholesterol 48 Heart Disease Risk Ratio 3.69 Urine Color Urine Appearance Urine pH Ur Specific [employer] Mdl Urine Protein Urine Glucose (UA) Urine Ketones Urine Blood Urine Nitrate Urine Bilirubin Urine Urobilinogen Urine Leukocytes Urine RBC Urine WBC Ur Squamous Epith Cells Urine Mucus Ur Culture Indicated? Blood Type Antibody Screen Crossmatch 07/05/16 07/05/16 07/05/16 18:17 18:17 18:17 WBC 15.0 H D RBC 3.56 L Hgb 10.8 L Hct 33.1 L MCV 93.0 MCH 30 MCHC 32.6 RDW 14.0 Plt Count 222 MPV 10.6 Neut % (Auto) 93.7 H Lymph % (Auto) 2.9 L [place] % (Auto) 2.2 Eos % (Auto) 0.3 Baso % (Auto) 0.2 Neut # (Auto) 14.1 H Lymph # (Auto) 0.4 L [place] # (Auto) 0.3 Eos # (Auto) 0.0 Baso # (Auto) 0.0 Total Counted 100 Immature Gran % 0.7 Nucleated RBC % 0.0 Immature Gran # 0.10 Segmented Neutrophils 96 H Lymphocytes 3 L Monocytes 1 L Nucleated RBCs # 0.00 Platelet Estimate Normal Patient Temperature ABG pH ABG pH at Pt Temp ABG pCO2 ABG pCO2 at Pt Temp ABG pO2 ABG pO2 at Pt Temp ABG HCO3 ABG Total CO2 ABG O2 Saturation ABG Base Excess ABG Sodium VBG pH VBG pCO2 VBG pO2 VBG HCO3 VBG Total CO2 VBG O2 Saturation VBG Base Excess Hemoglobin Hematocrit Ionized Calcium FiO2 Sodium 143 Potassium 3.9 Chloride 107 Carbon Dioxide 24 Anion Gap 15.9 H BUN 8 Creatinine 0.90 GFR Calculation 66 BUN/Creatinine Ratio 8.00 Glucose 111 H Hemoglobin A1c Calculated Osmolality 283.0 Calcium 8.1 L Venous Ioniz Calcium Magnesium Total Bilirubin 0.40 AST 12 ALT 14 Alkaline Phosphatase 104 Total Creatine Kinase CK-MB (CK-2) Troponin I Total Protein 6.2 L Albumin 3.2 L Globulin 3.0 Albumin/Globulin Ratio 1.0 L Triglycerides Cholesterol LDL Cholesterol VLDL Cholesterol HDL Cholesterol Heart Disease Risk Ratio Urine Color Urine Appearance Urine pH Ur Specific [employer] Mdl Urine Protein Urine Glucose (UA) Urine Ketones Urine Blood Urine Nitrate Urine Bilirubin Urine Urobilinogen Urine Leukocytes Urine RBC Urine WBC Ur Squamous Epith Cells Urine Mucus Ur Culture Indicated? Blood Type A POSITIVE Antibody Screen Negative Crossmatch See Detail 07/05/16 07/05/16 07/06/16 18:34 18:34 01:01 WBC RBC Hgb Hct MCV MCH MCHC RDW Plt Count MPV Neut % (Auto) Lymph % (Auto) [place] % (Auto) Eos % (Auto) Baso % (Auto) Neut # (Auto) Lymph # (Auto) [place] # (Auto) Eos # (Auto) Baso # (Auto) Total Counted Immature Gran % Nucleated RBC % Immature Gran # Segmented Neutrophils Lymphocytes Monocytes Nucleated RBCs # Platelet Estimate Patient Temperature ABG pH 7.434 ABG pH at Pt Temp ABG pCO2 37.1 ABG pCO2 at Pt Temp ABG pO2 74.9 L ABG pO2 at Pt Temp ABG HCO3 24.3 ABG Total CO2 25.4 ABG O2 Saturation 94.6 L ABG Base Excess 0.3 ABG Sodium VBG pH VBG pCO2 VBG pO2 VBG HCO3 VBG Total CO2 VBG O2 Saturation VBG Base Excess Hemoglobin Hematocrit Ionized Calcium FiO2 Sodium Potassium Chloride Carbon Dioxide Anion Gap BUN Creatinine GFR Calculation BUN/Creatinine Ratio Glucose Hemoglobin A1c Calculated Osmolality Calcium Venous Ioniz Calcium Magnesium Total Bilirubin AST ALT Alkaline Phosphatase Total Creatine Kinase 66 CK-MB (CK-2) 2.1 Troponin I 1.540 H D Total Protein Albumin Globulin Albumin/Globulin Ratio Triglycerides Cholesterol LDL Cholesterol VLDL Cholesterol HDL Cholesterol Heart Disease Risk Ratio Urine Color Urine Appearance Urine pH Ur Specific [employer] Mdl Urine Protein Urine Glucose (UA) Urine Ketones Urine Blood Urine Nitrate Urine Bilirubin Urine Urobilinogen Urine Leukocytes Urine RBC Urine WBC Ur Squamous Epith Cells Urine Mucus Ur Culture Indicated? Blood Type A POSITIVE Antibody Screen Crossmatch 07/06/16 07/06/16 07/06/16 03:48 03:48 07:51 WBC RBC Hgb Hct MCV MCH MCHC RDW Plt Count 60 L D MPV Neut % (Auto) Lymph % (Auto) [place] % (Auto) Eos % (Auto) Baso % (Auto) Neut # (Auto) Lymph # (Auto) [place] # (Auto) Eos # (Auto) Baso # (Auto) Total Counted Immature Gran % Nucleated RBC % Immature Gran # Segmented Neutrophils Lymphocytes Monocytes Nucleated RBCs # Platelet Estimate Patient Temperature ABG pH ABG pH at Pt Temp ABG pCO2 ABG pCO2 at Pt Temp ABG pO2 ABG pO2 at Pt Temp ABG HCO3 ABG Total CO2 ABG O2 Saturation ABG Base Excess ABG Sodium VBG pH VBG pCO2 VBG pO2 VBG HCO3 VBG Total CO2 VBG O2 Saturation VBG Base Excess Hemoglobin Hematocrit Ionized Calcium FiO2 Sodium 142 Potassium 4.4 Chloride 106 Carbon Dioxide 21 Anion Gap 19.4 H BUN 11 Creatinine 0.80 GFR Calculation 78 BUN/Creatinine Ratio 13.00 Glucose 130 H Hemoglobin A1c 6.0 Calculated Osmolality 283.1 Calcium 8.1 L Venous Ioniz Calcium Magnesium Total Bilirubin AST ALT Alkaline Phosphatase Total Creatine Kinase CK-MB (CK-2) Troponin I Total Protein Albumin Globulin Albumin/Globulin Ratio Triglycerides Cholesterol LDL Cholesterol VLDL Cholesterol HDL Cholesterol Heart Disease Risk Ratio Urine Color Urine Appearance Urine pH Ur Specific [employer] Mdl Urine Protein Urine Glucose (UA) Urine Ketones Urine Blood Urine Nitrate Urine Bilirubin Urine Urobilinogen Urine Leukocytes Urine RBC Urine WBC Ur Squamous Epith Cells Urine Mucus Ur Culture Indicated? Blood Type Antibody Screen Crossmatch 07/06/16 07/06/16 07/06/16 07:51 08:22 09:00 WBC RBC Hgb Hct MCV MCH MCHC RDW Plt Count MPV Neut % (Auto) Lymph % (Auto) [place] % (Auto) Eos % (Auto) Baso % (Auto) Neut # (Auto) Lymph # (Auto) [place] # (Auto) Eos # (Auto) Baso # (Auto) Total Counted Immature Gran % Nucleated RBC % Immature Gran # Segmented Neutrophils Lymphocytes Monocytes Nucleated RBCs # Platelet Estimate Patient Temperature 37 34 ABG pH 7.445 ABG pH at Pt Temp 7.445 7.431 ABG pCO2 32.4 L ABG pCO2 at Pt Temp 32.4 33.0 ABG pO2 417.6 H ABG pO2 at Pt Temp 417.6 37.2 ABG HCO3 21.8 ABG Total CO2 22.8 L ABG O2 Saturation 99.2 ABG Base Excess -1.8 ABG Sodium 138 123 L VBG pH 7.387 VBG pCO2 37.6 L VBG pO2 45.9 H VBG HCO3 22.1 L VBG Total CO2 23.3 VBG O2 Saturation 80.5 VBG Base Excess -2.6 L Hemoglobin 10.1 L 8.3 L Hematocrit 30.0 L 24.0 L Ionized Calcium 1.04 L FiO2 80.00 Sodium Potassium 4.2 5.1 Chloride Carbon Dioxide Anion Gap BUN Creatinine GFR Calculation BUN/Creatinine Ratio Glucose 123 H 377 H Hemoglobin A1c Calculated Osmolality Calcium Venous Ioniz Calcium 0.80 Magnesium Total Bilirubin AST ALT Alkaline Phosphatase Total Creatine Kinase CK-MB (CK-2) Troponin I Total Protein Albumin Globulin Albumin/Globulin Ratio Triglycerides Cholesterol LDL Cholesterol VLDL Cholesterol HDL Cholesterol Heart Disease Risk Ratio Urine Color Yellow Urine Appearance Slightly hazy Urine pH 5.0 Ur Specific [employer] Mdl 1.017 Urine Protein Negative Urine Glucose (UA) Negative Urine Ketones 5 Urine Blood Small Urine Nitrate Negative Urine Bilirubin Negative Urine Urobilinogen < 2.0 H Urine Leukocytes Small H Urine RBC 3 Urine WBC 11 Ur Squamous Epith Cells Occasional Urine Mucus Occasional Ur Culture Indicated? Results to follow Blood Type Antibody Screen Crossmatch 07/06/16 07/06/16 07/06/16 09:30 10:10 10:10 WBC RBC Hgb Hct MCV MCH MCHC RDW Plt Count 68 L MPV Neut % (Auto) Lymph % (Auto) [place] % (Auto) Eos % (Auto) Baso % (Auto) Neut # (Auto) Lymph # (Auto) [place] # (Auto) Eos # (Auto) Baso # (Auto) Total Counted Immature Gran % Nucleated RBC % Immature Gran # Segmented Neutrophils Lymphocytes Monocytes Nucleated RBCs # Platelet Estimate Patient Temperature 35 37 ABG pH 7.388 ABG pH at Pt Temp 7.433 7.388 ABG pCO2 36.0 ABG pCO2 at Pt Temp 34.0 36.0 ABG pO2 234.0 H ABG pO2 at Pt Temp 37.3 234.0 ABG HCO3 22.1 ABG Total CO2 20.1 L ABG O2 Saturation 99.8 ABG Base Excess -2.8 L ABG Sodium 122 L 128 L VBG pH 7.404 VBG pCO2 37.1 L VBG pO2 42.9 H VBG HCO3 22.7 L VBG Total CO2 23.8 VBG O2 Saturation 77.1 VBG Base Excess -1.8 L Hemoglobin 8.3 L 8.8 L Hematocrit 24.0 L 27.3 L Ionized Calcium 1.24 FiO2 80.00 Sodium Potassium 5.5 H 4.7 Chloride Carbon Dioxide Anion Gap BUN Creatinine GFR Calculation BUN/Creatinine Ratio Glucose 284 H 273 H Hemoglobin A1c Calculated Osmolality Calcium Venous Ioniz Calcium 0.83 Magnesium Total Bilirubin AST ALT Alkaline Phosphatase Total Creatine Kinase CK-MB (CK-2) Troponin I Total Protein Albumin Globulin Albumin/Globulin Ratio Triglycerides Cholesterol LDL Cholesterol VLDL Cholesterol HDL Cholesterol Heart Disease Risk Ratio Urine Color Urine Appearance Urine pH Ur Specific [employer] Mdl Urine Protein Urine Glucose (UA) Urine Ketones Urine Blood Urine Nitrate Urine Bilirubin Urine Urobilinogen Urine Leukocytes Urine RBC Urine WBC Ur Squamous Epith Cells Urine Mucus Ur Culture Indicated? Blood Type Antibody Screen Crossmatch 07/06/16 11:26 WBC RBC Hgb Hct MCV MCH MCHC RDW Plt Count MPV Neut % (Auto) Lymph % (Auto) [place] % (Auto) Eos % (Auto) Baso % (Auto) Neut # (Auto) Lymph # (Auto) [place] # (Auto) Eos # (Auto) Baso # (Auto) Total Counted Immature Gran % Nucleated RBC % Immature Gran # Segmented Neutrophils Lymphocytes Monocytes Nucleated RBCs # Platelet Estimate Patient Temperature ABG pH 7.366 ABG pH at Pt Temp ABG pCO2 41.0 ABG pCO2 at Pt Temp ABG pO2 131.0 H ABG pO2 at Pt Temp ABG HCO3 23.0 ABG Total CO2 21.4 L ABG O2 Saturation 98.9 ABG Base Excess -1.7 ABG Sodium VBG pH VBG pCO2 VBG pO2 VBG HCO3 VBG Total CO2 VBG O2 Saturation VBG Base Excess Hemoglobin 10.1 L Hematocrit 31.3 L Ionized Calcium FiO2 Sodium Potassium 3.8 Chloride Carbon Dioxide Anion Gap BUN Creatinine GFR Calculation BUN/Creatinine Ratio Glucose 255 H Hemoglobin A1c Calculated Osmolality Calcium Venous Ioniz Calcium Magnesium Total Bilirubin AST ALT Alkaline Phosphatase Total Creatine Kinase CK-MB (CK-2) Troponin I Total Protein Albumin Globulin Albumin/Globulin Ratio Triglycerides Cholesterol LDL Cholesterol VLDL Cholesterol HDL Cholesterol Heart Disease Risk Ratio Urine Color Urine Appearance Urine pH Ur Specific [employer] Mdl Urine Protein Urine Glucose (UA) Urine Ketones Urine Blood Urine Nitrate Urine Bilirubin Urine Urobilinogen Urine Leukocytes Urine RBC Urine WBC Ur Squamous Epith Cells Urine Mucus Ur Culture Indicated? Blood Type Antibody Screen Crossmatch Quality Measures - VTE Contraindication to Pharmacological VTE Prophylaxis: High Risk of Bleeding
[2016-07-06 12:04] LABS: Albumin 2.5 G/DL (3.4-5.0); Bilirubin,Total 0.7 MG/DL (0.2-1.0); Magnesium 2.3 MG/DL (1.8-2.4); Osmolality,Calculated 284.5 MOS/KG (273-304); Potassium 4.1 MMOL/L (3.5-5.1); Total Protein 4.6 G/DL (6.4-8.3)
[2016-07-06 12:06] LABS: CKMB % 9.4 %
[2016-07-06 12:07] LABS: Troponin I Only 4.36 NG/ML (0.00-0.045)
[2016-07-06] MEDS: KETOROLAC 30 MG/1 ML VIAL IV SCH ×3 (12:19→22:59)
[2016-07-06] MEDS: LACTATED RINGERS 1,000 ML IV PRN ×4 (12:22→20:14)
[2016-07-06] MEDS: ALBUMIN 5% 12.5 GM in PREMIX 1 EACH IV PRN ×3 (12:31→20:35)
[2016-07-06 12:35] LABS: Basophils % 0.1 % (0.0-0.8); Hematocrit 28.3 VOL% (35.7-47.0); Hemoglobin 9.3 GM/DL (12.0-16.0); Immature Granulocytes % 0.9 %; Immature Granulocytes Absolute 0.13 #; Lymphocytes # 0.6 10*3/uL (1.4-4.0); Lymphocytes % 3.7 % (21.3-54.2); Mean Corpuscular HGB Conc 32.9 GM/DL (32-36); Mean Corpuscular Hemoglobin 30 PG (27-34); Mean Corpuscular Volume 91.3 FL (87-102); Mean Platelet Volume 11.1 FL (9.6-12.0); Monocytes # 0.7 10*3/uL (0.11-0.8); Monocytes % 4.7 % (1.7-12.7); Neutrophils # 13.7 10*3/uL (1.4-7.4); Neutrophils % 90.6 % (38.7-73.9); Platelet Count 127 10*3/uL (130-400); Red Cell Distribution Width 14.6 % (9.3-17.3); White Blood Count 15.1 10*3/uL (4.5-13.71)
[2016-07-06 12:37] LABS: ABG Base Excess 0.2 MMOL/L (-2.5-2.5); ABG HCO3 24.6 MMOL/L (20-26); ABG Oxygen Saturation 98.2 % (95-100); ABG PCO2 42.4 MM HG (35-48); ABG PH 7.384 (7.35-7.45); ABG TCO2 23.2 MMOL/L (23-27); Glucose Heart Surgery 211 MG/DL (74-106); Hematocrit Heart Surgery 29.5 PERCENT (37-47); Hemoglobin Heart Surgery 9.5 G/DL (12.0-16.0); Potassium Heart/CVR 4.4 MMOL/L (3.5-5.1)
[2016-07-06] MEDS: MIDAZOLAM 2 MG/2 ML VIAL IV PRN ×2 (12:45→14:16)
[2016-07-06 12:50] LABS: INR 1.2; PT Patient Result 13.1 SECS; Partial Thromboplastin Time 25.7 SECS (0-40)
[2016-07-06 12:54] LABS: Lymphocytes 2 % (20-55); Segmented Neutrophils 96 % (50-85)
[2016-07-06] MEDS: POTASSIUM CHLORIDE RIDER 10 MEQ in PREMIX 1 EACH IV PRN (12:54)
[2016-07-06 12:55] LABS: Platelet Estimate Decreased; Total Cells Counted 100
--- NOTE | 2016-07-06 13:07 | XRay Report ---
Exam: XR chest 1V portable Date: 07/06/2016 10:55 AM Indication: Postop cardiac surgery Comparison: 07/05/2016 Technical. AP portable Findings: Endotracheal tube has been placed at the level aortic knob. Nasogastric tube is in the stomach. Mediastinal drain is present with 2 drains noted. A right-sided [place]-James catheter is demonstrated with the distal tip in the right pulmonary artery. Left IJ catheter is demonstrated with the distal tip in the right atrium. Sternotomy wires are present. Cardiomegaly is present. No obvious cardiac decompensation, infiltrates clearly demonstrated. Some minimal pleural diaphragmatic reaction the left base. External cardiac leads are present. Impression: 1. Interval sternotomy and placement of the coronary tubes mediastinal drains [place]James catheter endotracheal tube nasogastric tube and left sided IJ catheter 2. Minimal torus migration the left base 3. Cardiomegaly without overt decompensation PROCEDURE INTERPRETED AT [facility] DEPARTMENT OF RADIOLOGY Final Report Signed by: Dr. Francisco Ward
[2016-07-06 14:29] LABS: ABG Base Excess 0.9 MMOL/L (-2.5-2.5); ABG HCO3 25.2 MMOL/L (20-26); ABG Oxygen Saturation 99.4 % (95-100); ABG PCO2 41.5 MM HG (35-48); ABG PH 7.401 (7.35-7.45); ABG TCO2 23.3 MMOL/L (23-27); Glucose Heart Surgery 121 MG/DL (74-106); Hematocrit Heart Surgery 31.7 PERCENT (37-47); Hemoglobin Heart Surgery 10.3 G/DL (12.0-16.0); Potassium Heart/CVR 4.2 MMOL/L (3.5-5.1)
[2016-07-06 15:08] LABS: ABG Base Excess 1.5 MMOL/L (-2.5-2.5); ABG HCO3 25.8 MMOL/L (20-26); ABG Oxygen Saturation 98.7 % (95-100); ABG PCO2 39.6 MM HG (35-48); ABG PH 7.424 (7.35-7.45); ABG TCO2 23.5 MMOL/L (23-27); Glucose Heart Surgery 126 MG/DL (74-106); Hematocrit Heart Surgery 31.6 PERCENT (37-47); Hemoglobin Heart Surgery 10.2 G/DL (12.0-16.0)
[2016-07-06 15:58] LABS: ABG Base Excess 1.3 MMOL/L (-2.5-2.5); ABG HCO3 25.5 MMOL/L (20-26); ABG Oxygen Saturation 97.3 % (95-100); ABG PCO2 39.3 MM HG (35-48); ABG PH 7.423 (7.35-7.45); ABG PO2 87.3 MM HG (80-95); ABG TCO2 23.4 MMOL/L (23-27); Glucose Heart Surgery 114 MG/DL (74-106); Hematocrit Heart Surgery 30.3 PERCENT (37-47); Hemoglobin Heart Surgery 9.8 G/DL (12.0-16.0); Potassium Heart/CVR 4.8 MMOL/L (3.5-5.1)
[2016-07-06] MEDS: CEFUROXIME INJ 1,500 MG in SODIUM CHLORIDE 0.9% 100 ML IV SCH (18:09)
[2016-07-06 18:49] LABS: ABG Base Excess 0.9 MMOL/L (-2.5-2.5); ABG HCO3 25.2 MMOL/L (20-26); ABG Oxygen Saturation 96.3 % (95-100); ABG PCO2 39.4 MM HG (35-48); ABG PH 7.416 (7.35-7.45); ABG PO2 79.2 MM HG (80-95); ABG TCO2 23.2 MMOL/L (23-27); Glucose Heart Surgery 105 MG/DL (74-106); Hematocrit Heart Surgery 29.8 PERCENT (37-47); Hemoglobin Heart Surgery 9.6 G/DL (12.0-16.0); Potassium Heart/CVR 4.2 MMOL/L (3.5-5.1)
[2016-07-06] MEDS ORDERED: FUROSEMIDE 40 MG/4 ML VIAL IV ONE (18:58)
[2016-07-06] MEDS: MIDAZOLAM 10 MG/2 ML VIAL IV PRN ×4 (19:20→21:39)
[2016-07-06 19:59] LABS: ABG Base Excess 0.8 MMOL/L (-2.5-2.5); ABG HCO3 25.1 MMOL/L (20-26); ABG Oxygen Saturation 96.6 % (95-100); ABG PCO2 40.9 MM HG (35-48); ABG PH 7.404 (7.35-7.45); ABG PO2 83.4 MM HG (80-95); ABG TCO2 23.5 MMOL/L (23-27); Glucose Heart Surgery 118 MG/DL (74-106); Hematocrit Heart Surgery 28.8 PERCENT (37-47); Hemoglobin Heart Surgery 9.3 G/DL (12.0-16.0); Potassium Heart/CVR 4.1 MMOL/L (3.5-5.1)
[2016-07-06 20:54] LABS: CKMB % 0.1 %; Troponin I Only 2.37 NG/ML (0.00-0.045)
[2016-07-06] MEDS: MORPHINE 10 MG/1 ML VIAL IV PRN (21:05)
[2016-07-06 21:28] LABS: ABG Base Excess -0.1 MMOL/L (-2.5-2.5); ABG HCO3 24.3 MMOL/L (20-26); ABG PCO2 39.8 MM HG (35-48); ABG PH 7.399 (7.35-7.45); ABG PO2 74.1 MM HG (80-95); ABG TCO2 22.1 MMOL/L (23-27); Glucose Heart Surgery 120 MG/DL (74-106); Hematocrit Heart Surgery 33.9 PERCENT (37-47); Potassium Heart/CVR 4.6 MMOL/L (3.5-5.1)
[2016-07-06] MEDS ORDERED: oxyCODONE/ACETAMINOPHEN 5-325 MG TABLET PO PRN (22:48)
[2016-07-07 00:12] LABS: ABG Base Excess 0.8 MMOL/L (-2.5-2.5); ABG HCO3 25.4 MMOL/L (20-26); ABG Oxygen Saturation 95.3 % (95-100); ABG PCO2 40.4 MM HG (35-48); ABG PH 7.416 (7.35-7.45); ABG TCO2 26.6 MMOL/L (23-27); Glucose Heart Surgery 127 MG/DL (74-106); Hemoglobin Heart Surgery 11.7 G/DL (12.0-16.0); Potassium Heart/CVR 3.9 MMOL/L (3.5-5.1)
[2016-07-07] MEDS: INSULIN REGULAR 100 UNIT/ML SUBCUT SCH ×2 (00:21→05:30)
[2016-07-07] MEDS: POTASSIUM CHLORIDE RIDER 20 MEQ in PREMIX 1 EACH IV PRN ×2 (00:23→04:49)
[2016-07-07] MEDS: POTASSIUM CHLORIDE RIDER 10 MEQ in PREMIX 1 EACH IV PRN (00:55)
[2016-07-07 00:57] LABS: ABG Base Excess 0.1 MMOL/L (-2.5-2.5); ABG HCO3 24.5 MMOL/L (20-26); ABG Oxygen Saturation 96.3 % (95-100); ABG PH 7.401 (7.35-7.45); ABG PO2 81.4 MM HG (80-95); ABG TCO2 22.2 MMOL/L (23-27); Glucose Heart Surgery 134 MG/DL (74-106); Hematocrit Heart Surgery 34.6 PERCENT (37-47); Hemoglobin Heart Surgery 11.2 G/DL (12.0-16.0); Potassium Heart/CVR 5.2 MMOL/L (3.5-5.1)
[2016-07-07 01:37] LABS: ABG Base Excess -0.6 MMOL/L (-2.5-2.5); ABG HCO3 23.9 MMOL/L (20-26); ABG Oxygen Saturation 93.2 % (95-100); ABG PCO2 37.9 MM HG (35-48); ABG PH 7.407 (7.35-7.45); ABG PO2 66.2 MM HG (80-95); ABG TCO2 21.2 MMOL/L (23-27); Glucose Heart Surgery 137 MG/DL (74-106); Hemoglobin Heart Surgery 11.7 G/DL (12.0-16.0); Potassium Heart/CVR 5.1 MMOL/L (3.5-5.1)
[2016-07-07] MEDS: ALBUMIN 5% 12.5 GM in PREMIX 1 EACH IV PRN (01:50)
[2016-07-07 03:28] LABS: ABG Base Excess -0.7 MMOL/L (-2.5-2.5); ABG HCO3 23.8 MMOL/L (20-26); ABG Oxygen Saturation 94.6 % (95-100); ABG PCO2 38.9 MM HG (35-48); ABG PH 7.397 (7.35-7.45); ABG PO2 73.3 MM HG (80-95); ABG TCO2 21.6 MMOL/L (23-27); Glucose Heart Surgery 122 MG/DL (74-106); Hematocrit Heart Surgery 32.9 PERCENT (37-47); Hemoglobin Heart Surgery 10.7 G/DL (12.0-16.0); Potassium Heart/CVR 4.2 MMOL/L (3.5-5.1)
[2016-07-07 03:47] LABS: Basophils % 0.1 % (0.0-0.8); Hematocrit 32.1 VOL% (35.7-47.0); Hemoglobin 10.6 GM/DL (12.0-16.0); Immature Granulocytes % 0.5 %; Immature Granulocytes Absolute 0.06 #; Lymphocytes # 0.7 10*3/uL (1.4-4.0); Lymphocytes % 4.9 % (21.3-54.2); Mean Corpuscular Hemoglobin 31 PG (27-34); Mean Corpuscular Volume 92.2 FL (87-102); Mean Platelet Volume 11.3 FL (9.6-12.0); Monocytes # 0.7 10*3/uL (0.11-0.8); Monocytes % 5.4 % (1.7-12.7); Neutrophils # 11.8 10*3/uL (1.4-7.4); Neutrophils % 89.1 % (38.7-73.9); Red Blood Count 3.48 10*6/uL (3.8-5.5); Red Cell Distribution Width 14.9 % (9.3-17.3); White Blood Count 13.2 10*3/uL (4.5-13.71)
[2016-07-07 03:50] LABS: Platelet Count 94 10*3/uL (130-400)
[2016-07-07 03:55] LABS: CKMB % 4.2 %
[2016-07-07 04:00] LABS: Troponin I Only 3.42 NG/ML (0.00-0.045)
[2016-07-07] MEDS: KETOROLAC 30 MG/1 ML VIAL IV SCH ×2 (04:24→10:13)
[2016-07-07 04:38] LABS: ABG Base Excess 0.1 MMOL/L (-2.5-2.5); ABG HCO3 24.5 MMOL/L (20-26); ABG Oxygen Saturation 95.8 % (95-100); ABG PCO2 38.5 MM HG (35-48); ABG PH 7.413 (7.35-7.45); ABG PO2 77.7 MM HG (80-95); ABG TCO2 22.1 MMOL/L (23-27); Glucose Heart Surgery 113 MG/DL (74-106); Hematocrit Heart Surgery 32.7 PERCENT (37-47); Hemoglobin Heart Surgery 10.6 G/DL (12.0-16.0); Potassium Heart/CVR 4.1 MMOL/L (3.5-5.1)
[2016-07-07 04:49] LABS: Albumin 3.4 G/DL (3.4-5.0); Bilirubin,Direct 0.3 MG/DL (0.0-0.20); Bilirubin,Total 0.9 MG/DL (0.2-1.0); Calcium 7.7 MG/DL (8.5-10.1); Potassium 4.4 MMOL/L (3.5-5.1); Total Protein 5.5 G/DL (6.4-8.3)
[2016-07-07] MEDS: CEFUROXIME INJ 1,500 MG in SODIUM CHLORIDE 0.9% 100 ML IV SCH (05:57)
[2016-07-07 06:15] LABS: Band Neutrophils 3 % (0-10); Lymphocytes 6 % (20-55); Platelet Estimate Decreased; Segmented Neutrophils 88 % (50-85); Total Cells Counted 100
[2016-07-07 06:22] LABS: ABG Base Excess -0.7 MMOL/L (-2.5-2.5); ABG HCO3 23.8 MMOL/L (20-26); ABG Oxygen Saturation 96.5 % (95-100); ABG PH 7.412 (7.35-7.45); ABG PO2 81.9 MM HG (80-95); ABG TCO2 21.2 MMOL/L (23-27); Glucose Heart Surgery 103 MG/DL (74-106); Hemoglobin Heart Surgery 10.7 G/DL (12.0-16.0); Potassium Heart/CVR 4.4 MMOL/L (3.5-5.1)
[2016-07-07] MEDS ORDERED: DEXTROSE 50% 25 GM/50 ML VIAL IV PRN ×2 (07:53)
[2016-07-07] MEDS ORDERED: MAGNESIUM SULF RIDER 4 GM in PREMIX 1 EACH IV PRN (07:53)
[2016-07-07] MEDS ORDERED: ACETAMINOPHEN 325 MG TABLET PO PRN (07:53)
[2016-07-07] MEDS ORDERED: GLUCAGON 1 MG VIAL IM PRN ×2 (07:53)
[2016-07-07] MEDS ORDERED: ZALEPLON 5 MG CAPSULE PO PRN (07:53)
[2016-07-07] MEDS ORDERED: POTASSIUM CHLORIDE 20 MEQ TABLET PO PRN (07:53)
[2016-07-07] MEDS ORDERED: MAGNESIUM SULF RIDER 2 GM in PREMIX 1 EACH IV PRN (07:53)
[2016-07-07] MEDS ORDERED: ONDANSETRON 4 MG/2 ML VIAL IV PRN (07:53)
[2016-07-07] MEDS ORDERED: MAGNESIUM HYDROXIDE SUSP 30 ML UDCUP PO PRN (07:53)
[2016-07-07] MEDS ORDERED: ALUMINUM/MAGNES/SIMETH MAX STR 30 ML UDCUP PO PRN (07:53)
--- NOTE | 2016-07-07 08:02 | Cardiothoracic Progress Note ---
Cardiothoracic Subjective Interval history: Patient is awake alert and extubated. Balloon pump was removed last night at 930 p.m. Vital signs have been stable and her cardiac output has been around 4 L/m. Blood gases are satisfactory postextubation. Renal function is normal. Chest tube drainage is minimal and the chest tubes are removed. I think the patient can be transferred to telemetry later today. Exam (Progress Note) - Constitutional Vitals: Period Temp Pulse Resp BP Sys/Briones Pulse Ox Last 24 Hr 97.3 F-99.8 F 59-81 10-23 103-160/31-64 92-100 Result/EKG - Labs CBC & BMP: 07/07/16 03:23 07/07/16 03:23 Labs: Laboratory Results - last 24 hr 07/05/16 07/06/16 07/06/16 18:17 07:51 07:51 WBC RBC Hgb Hct MCV MCH MCHC RDW Plt Count 60 L D MPV Neut % (Auto) Lymph % (Auto) [place] % (Auto) Eos % (Auto) Baso % (Auto) Neut # (Auto) Lymph # (Auto) [place] # (Auto) Eos # (Auto) Baso # (Auto) Total Counted Immature Gran % Nucleated RBC % Immature Gran # Segmented Neutrophils Band Neutrophils Lymphocytes Monocytes Nucleated RBCs # Platelet Estimate Pappenheimer Bodies INR PT Patient/Control Mix Circ Anticoag PTT Patient Temperature 37 ABG pH 7.445 ABG pH at Pt Temp 7.445 ABG pCO2 32.4 L ABG pCO2 at Pt Temp 32.4 ABG pO2 417.6 H ABG pO2 at Pt Temp 417.6 ABG HCO3 21.8 ABG Total CO2 22.8 L ABG O2 Sat Calc/Edilson ABG O2 Saturation 99.2 ABG Base Excess -1.8 ABG Sodium 138 VBG pH VBG pCO2 VBG pO2 VBG HCO3 VBG Total CO2 VBG O2 Saturation VBG Base Excess Hemoglobin 10.1 L Hematocrit 30.0 L Potassium 4.2 Glucose 123 H Ionized Calcium 1.04 L FiO2 Sodium Chloride Carbon Dioxide Anion Gap BUN Creatinine GFR Calculation BUN/Creatinine Ratio Calculated Osmolality Calcium Venous Ioniz Calcium Magnesium Total Bilirubin Direct Bilirubin AST ALT Alkaline Phosphatase Total Creatine Kinase CK-MB (CK-2) CK and CKMB Interp Troponin I Total Protein Albumin Globulin Albumin/Globulin Ratio Urine Color Urine Appearance Urine pH Ur Specific [place] Urine Protein Urine Glucose (UA) Urine Ketones Urine Blood Urine Nitrate Urine Bilirubin Urine Urobilinogen Urine Leukocytes Urine RBC Urine WBC Ur Squamous Epith Cells Urine Mucus Ur Culture Indicated? Blood Type A POSITIVE Antibody Screen Negative Crossmatch See Detail 07/06/16 07/06/16 07/06/16 08:22 09:00 09:30 WBC RBC Hgb Hct MCV MCH MCHC RDW Plt Count MPV Neut % (Auto) Lymph % (Auto) [place] % (Auto) Eos % (Auto) Baso % (Auto) Neut # (Auto) Lymph # (Auto) [place] # (Auto) Eos # (Auto) Baso # (Auto) Total Counted Immature Gran % Nucleated RBC % Immature Gran # Segmented Neutrophils Band Neutrophils Lymphocytes Monocytes Nucleated RBCs # Platelet Estimate Pappenheimer Bodies INR PT Patient/Control Mix Circ Anticoag PTT Patient Temperature 34 35 ABG pH ABG pH at Pt Temp 7.431 7.433 ABG pCO2 ABG pCO2 at Pt Temp 33.0 34.0 ABG pO2 ABG pO2 at Pt Temp 37.2 37.3 ABG HCO3 ABG Total CO2 ABG O2 Sat Calc/Edilson ABG O2 Saturation ABG Base Excess ABG Sodium 123 L 122 L VBG pH 7.387 7.404 VBG pCO2 37.6 L 37.1 L VBG pO2 45.9 H 42.9 H VBG HCO3 22.1 L 22.7 L VBG Total CO2 23.3 23.8 VBG O2 Saturation 80.5 77.1 VBG Base Excess -2.6 L -1.8 L Hemoglobin 8.3 L 8.3 L Hematocrit 24.0 L 24.0 L Potassium 5.1 5.5 H Glucose 377 H 284 H Ionized Calcium FiO2 80.00 80.00 Sodium Chloride Carbon Dioxide Anion Gap BUN Creatinine GFR Calculation BUN/Creatinine Ratio Calculated Osmolality Calcium Venous Ioniz Calcium 0.80 0.83 Magnesium Total Bilirubin Direct Bilirubin AST ALT Alkaline Phosphatase Total Creatine Kinase CK-MB (CK-2) CK and CKMB Interp Troponin I Total Protein Albumin Globulin Albumin/Globulin Ratio Urine Color Yellow Urine Appearance Slightly hazy Urine pH 5.0 Ur Specific [place] 1.017 Urine Protein Negative Urine Glucose (UA) Negative Urine Ketones 5 Urine Blood Small Urine Nitrate Negative Urine Bilirubin Negative Urine Urobilinogen < 2.0 H Urine Leukocytes Small H Urine RBC 3 Urine WBC 11 Ur Squamous Epith Cells Occasional Urine Mucus Occasional Ur Culture Indicated? Results to follow Blood Type Antibody Screen Crossmatch 07/06/16 07/06/16 07/06/16 10:10 10:10 11:26 WBC RBC Hgb Hct MCV MCH MCHC RDW Plt Count 68 L MPV Neut % (Auto) Lymph % (Auto) [place] % (Auto) Eos % (Auto) Baso % (Auto) Neut # (Auto) Lymph # (Auto) [place] # (Auto) Eos # (Auto) Baso # (Auto) Total Counted Immature Gran % Nucleated RBC % Immature Gran # Segmented Neutrophils Band Neutrophils Lymphocytes Monocytes Nucleated RBCs # Platelet Estimate Pappenheimer Bodies INR PT Patient/Control Mix Circ Anticoag PTT Patient Temperature 37 ABG pH 7.388 ABG pH at Pt Temp 7.388 ABG pCO2 36.0 ABG pCO2 at Pt Temp 36.0 ABG pO2 234.0 H ABG pO2 at Pt Temp 234.0 ABG HCO3 22.1 ABG Total CO2 20.1 L ABG O2 Sat Calc/Edilson ABG O2 Saturation 99.8 ABG Base Excess -2.8 L ABG Sodium 128 L VBG pH VBG pCO2 VBG pO2 VBG HCO3 VBG Total CO2 VBG O2 Saturation VBG Base Excess Hemoglobin 8.8 L Hematocrit 27.3 L Potassium 4.7 4.1 Glucose 273 H 239 H Ionized Calcium 1.24 FiO2 Sodium 139 Chloride 105 Carbon Dioxide 24 Anion Gap 14.1 BUN 13 Creatinine 0.90 GFR Calculation 67 BUN/Creatinine Ratio 14.00 Calculated Osmolality 284.5 Calcium 8.0 L Venous Ioniz Calcium Magnesium 2.3 Total Bilirubin 0.70 Direct Bilirubin AST 24 ALT 11 L Alkaline Phosphatase 67 Total Creatine Kinase CK-MB (CK-2) CK and CKMB Interp Troponin I Total Protein 4.6 L Albumin 2.5 L Globulin 2.1 L Albumin/Globulin Ratio 1.1 Urine Color Urine Appearance Urine pH Ur Specific [place] Urine Protein Urine Glucose (UA) Urine Ketones Urine Blood Urine Nitrate Urine Bilirubin Urine Urobilinogen Urine Leukocytes Urine RBC Urine WBC Ur Squamous Epith Cells Urine Mucus Ur Culture Indicated? Blood Type Antibody Screen Crossmatch 07/06/16 07/06/16 07/06/16 11:26 11:26 12:33 WBC 15.1 H RBC 3.10 L Hgb 9.3 L Hct 28.3 L MCV 91.3 MCH 30 MCHC 32.9 RDW 14.6 Plt Count 127 L D MPV 11.1 Neut % (Auto) 90.6 H Lymph % (Auto) 3.7 L [place] % (Auto) 4.7 Eos % (Auto) 0.0 Baso % (Auto) 0.1 Neut # (Auto) 13.7 H Lymph # (Auto) 0.6 L [place] # (Auto) 0.7 Eos # (Auto) 0.0 Baso # (Auto) 0.0 Total Counted 100 Immature Gran % 0.9 Nucleated RBC % 0.0 Immature Gran # 0.13 Segmented Neutrophils 96 H Band Neutrophils Lymphocytes 2 L Monocytes 2 Nucleated RBCs # 0.00 Platelet Estimate Decreased Pappenheimer Bodies INR PT Patient/Control Mix Circ Anticoag PTT Patient Temperature ABG pH 7.366 ABG pH at Pt Temp ABG pCO2 41.0 ABG pCO2 at Pt Temp ABG pO2 131.0 H ABG pO2 at Pt Temp ABG HCO3 23.0 ABG Total CO2 21.4 L ABG O2 Sat Calc/Edilson ABG O2 Saturation 98.9 ABG Base Excess -1.7 ABG Sodium VBG pH VBG pCO2 VBG pO2 VBG HCO3 VBG Total CO2 VBG O2 Saturation VBG Base Excess Hemoglobin 10.1 L Hematocrit 31.3 L Potassium 3.8 Glucose 255 H Ionized Calcium FiO2 Sodium Chloride Carbon Dioxide Anion Gap BUN Creatinine GFR Calculation BUN/Creatinine Ratio Calculated Osmolality Calcium Venous Ioniz Calcium Magnesium Total Bilirubin Direct Bilirubin AST ALT Alkaline Phosphatase Total Creatine Kinase 184 D CK-MB (CK-2) 17.3 H D CK and CKMB Interp 9.4 Troponin I 4.360 H D Total Protein Albumin Globulin Albumin/Globulin Ratio Urine Color Urine Appearance Urine pH Ur Specific [place] Urine Protein Urine Glucose (UA) Urine Ketones Urine Blood Urine Nitrate Urine Bilirubin Urine Urobilinogen Urine Leukocytes Urine RBC Urine WBC Ur Squamous Epith Cells Urine Mucus Ur Culture Indicated? Blood Type Antibody Screen Crossmatch 07/06/16 07/06/16 07/06/16 12:33 14:20 15:03 WBC RBC Hgb Hct MCV MCH MCHC RDW Plt Count MPV Neut % (Auto) Lymph % (Auto) [place] % (Auto) Eos % (Auto) Baso % (Auto) Neut # (Auto) Lymph # (Auto) [place] # (Auto) Eos # (Auto) Baso # (Auto) Total Counted Immature Gran % Nucleated RBC % Immature Gran # Segmented Neutrophils Band Neutrophils Lymphocytes Monocytes Nucleated RBCs # Platelet Estimate Pappenheimer Bodies INR 1.2 PT Patient/Control Mix 13.1 D Circ Anticoag PTT 25.7 Patient Temperature ABG pH 7.401 7.424 ABG pH at Pt Temp ABG pCO2 41.5 39.6 ABG pCO2 at Pt Temp ABG pO2 150.0 H 110.0 H ABG pO2 at Pt Temp ABG HCO3 25.2 25.8 ABG Total CO2 23.3 23.5 ABG O2 Sat Calc/Edilson ABG O2 Saturation 99.4 98.7 ABG Base Excess 0.9 1.5 ABG Sodium VBG pH VBG pCO2 VBG pO2 VBG HCO3 VBG Total CO2 VBG O2 Saturation VBG Base Excess Hemoglobin 10.3 L 10.2 L Hematocrit 31.7 L 31.6 L Potassium 4.2 4.0 Glucose 121 H 126 H Ionized Calcium FiO2 Sodium Chloride Carbon Dioxide Anion Gap BUN Creatinine GFR Calculation BUN/Creatinine Ratio Calculated Osmolality Calcium Venous Ioniz Calcium Magnesium Total Bilirubin Direct Bilirubin AST ALT Alkaline Phosphatase Total Creatine Kinase CK-MB (CK-2) CK and CKMB Interp Troponin I Total Protein Albumin Globulin Albumin/Globulin Ratio Urine Color Urine Appearance Urine pH Ur Specific [place] Urine Protein Urine Glucose (UA) Urine Ketones Urine Blood Urine Nitrate Urine Bilirubin Urine Urobilinogen Urine Leukocytes Urine RBC Urine WBC Ur Squamous Epith Cells Urine Mucus Ur Culture Indicated? Blood Type Antibody Screen Crossmatch 07/06/16 07/06/16 07/06/16 15:53 18:44 19:08 WBC RBC Hgb Hct MCV MCH MCHC RDW Plt Count MPV Neut % (Auto) Lymph % (Auto) [place] % (Auto) Eos % (Auto) Baso % (Auto) Neut # (Auto) Lymph # (Auto) [place] # (Auto) Eos # (Auto) Baso # (Auto) Total Counted Immature Gran % Nucleated RBC % Immature Gran # Segmented Neutrophils Band Neutrophils Lymphocytes Monocytes Nucleated RBCs # Platelet Estimate Pappenheimer Bodies INR PT Patient/Control Mix Circ Anticoag PTT Patient Temperature ABG pH 7.423 7.416 ABG pH at Pt Temp ABG pCO2 39.3 39.4 ABG pCO2 at Pt Temp ABG pO2 87.3 79.2 L ABG pO2 at Pt Temp ABG HCO3 25.5 25.2 ABG Total CO2 23.4 23.2 ABG O2 Sat Calc/Edilson ABG O2 Saturation 97.3 96.3 ABG Base Excess 1.3 0.9 ABG Sodium VBG pH VBG pCO2 VBG pO2 VBG HCO3 VBG Total CO2 VBG O2 Saturation VBG Base Excess Hemoglobin 9.8 L 9.6 L Hematocrit 30.3 L 29.8 L Potassium 4.8 4.2 Glucose 114 H 105 Ionized Calcium FiO2 Sodium Chloride Carbon Dioxide Anion Gap BUN Creatinine GFR Calculation BUN/Creatinine Ratio Calculated Osmolality Calcium Venous Ioniz Calcium Magnesium Total Bilirubin Direct Bilirubin AST ALT Alkaline Phosphatase Total Creatine Kinase 8343 H D CK-MB (CK-2) 6.3 H D CK and CKMB Interp 0.1 Troponin I 2.370 H D Total Protein Albumin Globulin Albumin/Globulin Ratio Urine Color Urine Appearance Urine pH Ur Specific [place] Urine Protein Urine Glucose (UA) Urine Ketones Urine Blood Urine Nitrate Urine Bilirubin Urine Urobilinogen Urine Leukocytes Urine RBC Urine WBC Ur Squamous Epith Cells Urine Mucus Ur Culture Indicated? Blood Type Antibody Screen Crossmatch 07/06/16 07/06/16 07/06/16 19:59 21:30 23:00 WBC RBC Hgb Hct MCV MCH MCHC RDW Plt Count MPV Neut % (Auto) Lymph % (Auto) [place] % (Auto) Eos % (Auto) Baso % (Auto) Neut # (Auto) Lymph # (Auto) [place] # (Auto) Eos # (Auto) Baso # (Auto) Total Counted Immature Gran % Nucleated RBC % Immature Gran # Segmented Neutrophils Band Neutrophils Lymphocytes Monocytes Nucleated RBCs # Platelet Estimate Pappenheimer Bodies INR PT Patient/Control Mix Circ Anticoag PTT Patient Temperature ABG pH 7.404 7.399 ABG pH at Pt Temp ABG pCO2 40.9 39.8 ABG pCO2 at Pt Temp ABG pO2 83.4 74.1 L ABG pO2 at Pt Temp ABG HCO3 25.1 24.3 ABG Total CO2 23.5 22.1 L ABG O2 Sat Calc/Edilson 81.4 ABG O2 Saturation 96.6 95.0 ABG Base Excess 0.8 -0.1 ABG Sodium VBG pH VBG pCO2 VBG pO2 VBG HCO3 VBG Total CO2 VBG O2 Saturation VBG Base Excess Hemoglobin 9.3 L 11.0 L Hematocrit 28.8 L 33.9 L Potassium 4.1 4.6 Glucose 118 H 120 H Ionized Calcium FiO2 Sodium Chloride Carbon Dioxide Anion Gap BUN Creatinine GFR Calculation BUN/Creatinine Ratio Calculated Osmolality Calcium Venous Ioniz Calcium Magnesium Total Bilirubin Direct Bilirubin AST ALT Alkaline Phosphatase Total Creatine Kinase CK-MB (CK-2) CK and CKMB Interp Troponin I Total Protein Albumin Globulin Albumin/Globulin Ratio Urine Color Urine Appearance Urine pH Ur Specific [place] Urine Protein Urine Glucose (UA) Urine Ketones Urine Blood Urine Nitrate Urine Bilirubin Urine Urobilinogen Urine Leukocytes Urine RBC Urine WBC Ur Squamous Epith Cells Urine Mucus Ur Culture Indicated? Blood Type Antibody Screen Crossmatch 07/06/16 07/07/16 07/07/16 Unknown 00:00 00:50 WBC RBC Hgb Hct MCV MCH MCHC RDW Plt Count MPV Neut % (Auto) Lymph % (Auto) [place] % (Auto) Eos % (Auto) Baso % (Auto) Neut # (Auto) Lymph # (Auto) [place] # (Auto) Eos # (Auto) Baso # (Auto) Total Counted Immature Gran % Nucleated RBC % Immature Gran # Segmented Neutrophils Band Neutrophils Lymphocytes Monocytes Nucleated RBCs # Platelet Estimate Pappenheimer Bodies INR PT Patient/Control Mix Circ Anticoag PTT Patient Temperature ABG pH 7.384 7.416 7.401 ABG pH at Pt Temp ABG pCO2 42.4 40.4 40.0 ABG pCO2 at Pt Temp ABG pO2 106.0 H 82.0 81.4 ABG pO2 at Pt Temp ABG HCO3 24.6 25.4 24.5 ABG Total CO2 23.2 26.6 22.2 L ABG O2 Sat Calc/Edilson ABG O2 Saturation 98.2 95.3 96.3 ABG Base Excess 0.2 0.8 0.1 ABG Sodium VBG pH VBG pCO2 VBG pO2 VBG HCO3 VBG Total CO2 VBG O2 Saturation VBG Base Excess Hemoglobin 9.5 L 11.7 L 11.2 L Hematocrit 29.5 L 34.0 L 34.6 L Potassium 4.4 3.9 5.2 H Glucose 211 H 127 H 134 H Ionized Calcium FiO2 Sodium Chloride Carbon Dioxide Anion Gap BUN Creatinine GFR Calculation BUN/Creatinine Ratio Calculated Osmolality Calcium Venous Ioniz Calcium Magnesium Total Bilirubin Direct Bilirubin AST ALT Alkaline Phosphatase Total Creatine Kinase CK-MB (CK-2) CK and CKMB Interp Troponin I Total Protein Albumin Globulin Albumin/Globulin Ratio Urine Color Urine Appearance Urine pH Ur Specific [place] Urine Protein Urine Glucose (UA) Urine Ketones Urine Blood Urine Nitrate Urine Bilirubin Urine Urobilinogen Urine Leukocytes Urine RBC Urine WBC Ur Squamous Epith Cells Urine Mucus Ur Culture Indicated? Blood Type Antibody Screen Crossmatch 07/07/16 07/07/16 07/07/16 01:30 03:20 03:23 WBC RBC Hgb Hct MCV MCH MCHC RDW Plt Count MPV Neut % (Auto) Lymph % (Auto) [place] % (Auto) Eos % (Auto) Baso % (Auto) Neut # (Auto) Lymph # (Auto) [place] # (Auto) Eos # (Auto) Baso # (Auto) Total Counted Immature Gran % Nucleated RBC % Immature Gran # Segmented Neutrophils Band Neutrophils Lymphocytes Monocytes Nucleated RBCs # Platelet Estimate Pappenheimer Bodies INR PT Patient/Control Mix Circ Anticoag PTT Patient Temperature ABG pH 7.407 7.397 ABG pH at Pt Temp ABG pCO2 37.9 38.9 ABG pCO2 at Pt Temp ABG pO2 66.2 L 73.3 L ABG pO2 at Pt Temp ABG HCO3 23.9 23.8 ABG Total CO2 21.2 L 21.6 L ABG O2 Sat Calc/Edilson ABG O2 Saturation 93.2 L 94.6 L ABG Base Excess -0.6 -0.7 ABG Sodium VBG pH VBG pCO2 VBG pO2 VBG HCO3 VBG Total CO2 VBG O2 Saturation VBG Base Excess Hemoglobin 11.7 L 10.7 L Hematocrit 36.0 L 32.9 L Potassium 5.1 4.2 Glucose 137 H 122 H Ionized Calcium FiO2 Sodium Chloride Carbon Dioxide Anion Gap BUN Creatinine GFR Calculation BUN/Creatinine Ratio Calculated Osmolality Calcium Venous Ioniz Calcium Magnesium Total Bilirubin Direct Bilirubin AST ALT Alkaline Phosphatase Total Creatine Kinase 333 H D CK-MB (CK-2) 14.0 H D CK and CKMB Interp 4.2 Troponin I 3.420 H D Total Protein Albumin Globulin Albumin/Globulin Ratio Urine Color Urine Appearance Urine pH Ur Specific [place] Urine Protein Urine Glucose (UA) Urine Ketones Urine Blood Urine Nitrate Urine Bilirubin Urine Urobilinogen Urine Leukocytes Urine RBC Urine WBC Ur Squamous Epith Cells Urine Mucus Ur Culture Indicated? Blood Type Antibody Screen Crossmatch 07/07/16 07/07/16 07/07/16 03:23 03:23 04:30 WBC 13.2 RBC 3.48 L Hgb 10.6 L Hct 32.1 L MCV 92.2 MCH 31 MCHC 33.0 RDW 14.9 Plt Count 94 L D MPV 11.3 Neut % (Auto) 89.1 H Lymph % (Auto) 4.9 L [place] % (Auto) 5.4 Eos % (Auto) 0.0 Baso % (Auto) 0.1 Neut # (Auto) 11.8 H Lymph # (Auto) 0.7 L [place] # (Auto) 0.7 Eos # (Auto) 0.0 Baso # (Auto) 0.0 Total Counted 100 Immature Gran % 0.5 Nucleated RBC % 0.0 Immature Gran # 0.06 Segmented Neutrophils 88 H Band Neutrophils 3 Lymphocytes 6 L Monocytes 3 Nucleated RBCs # 0.00 Platelet Estimate Decreased Pappenheimer Bodies Twist Tester INR PT Patient/Control Mix Circ Anticoag PTT Patient Temperature ABG pH 7.413 ABG pH at Pt Temp ABG pCO2 38.5 ABG pCO2 at Pt Temp ABG pO2 77.7 L ABG pO2 at Pt Temp ABG HCO3 24.5 ABG Total CO2 22.1 L ABG O2 Sat Calc/Edilson ABG O2 Saturation 95.8 ABG Base Excess 0.1 ABG Sodium VBG pH VBG pCO2 VBG pO2 VBG HCO3 VBG Total CO2 VBG O2 Saturation VBG Base Excess Hemoglobin 10.6 L Hematocrit 32.7 L Potassium 4.4 4.1 Glucose 114 H 113 H Ionized Calcium FiO2 Sodium 143 Chloride 108 H Carbon Dioxide 25 Anion Gap 14.4 BUN 18 Creatinine 0.80 GFR Calculation 78 BUN/Creatinine Ratio 22.00 H Calculated Osmolality 287.0 Calcium 7.7 L Venous Ioniz Calcium Magnesium 2.0 Total Bilirubin 0.90 Direct Bilirubin 0.3 H AST 25 ALT 13 Alkaline Phosphatase 57 Total Creatine Kinase CK-MB (CK-2) CK and CKMB Interp Troponin I Total Protein 5.5 L Albumin 3.4 Globulin 2.1 L Albumin/Globulin Ratio 1.6 Urine Color Urine Appearance Urine pH Ur Specific [place] Urine Protein Urine Glucose (UA) Urine Ketones Urine Blood Urine Nitrate Urine Bilirubin Urine Urobilinogen Urine Leukocytes Urine RBC Urine WBC Ur Squamous Epith Cells Urine Mucus Ur Culture Indicated? Blood Type Antibody Screen Crossmatch 07/07/16 06:20 WBC RBC Hgb Hct MCV MCH MCHC RDW Plt Count MPV Neut % (Auto) Lymph % (Auto) [place] % (Auto) Eos % (Auto) Baso % (Auto) Neut # (Auto) Lymph # (Auto) [place] # (Auto) Eos # (Auto) Baso # (Auto) Total Counted Immature Gran % Nucleated RBC % Immature Gran # Segmented Neutrophils Band Neutrophils Lymphocytes Monocytes Nucleated RBCs # Platelet Estimate Pappenheimer Bodies INR PT Patient/Control Mix Circ Anticoag PTT Patient Temperature ABG pH 7.412 ABG pH at Pt Temp ABG pCO2 37.0 ABG pCO2 at Pt Temp ABG pO2 81.9 ABG pO2 at Pt Temp ABG HCO3 23.8 ABG Total CO2 21.2 L ABG O2 Sat Calc/[place] ABG O2 Saturation 96.5 ABG Base Excess -0.7 ABG Sodium VBG pH VBG pCO2 VBG pO2 VBG HCO3 VBG Total CO2 VBG O2 Saturation VBG Base Excess Hemoglobin 10.7 L Hematocrit 33.0 L Potassium 4.4 Glucose 103 Ionized Calcium FiO2 Sodium Chloride Carbon Dioxide Anion Gap BUN Creatinine GFR Calculation BUN/Creatinine Ratio Calculated Osmolality Calcium Venous Ioniz Calcium Magnesium Total Bilirubin Direct Bilirubin AST ALT Alkaline Phosphatase Total Creatine Kinase CK-MB (CK-2) CK and CKMB Interp Troponin I Total Protein Albumin Globulin Albumin/Globulin Ratio Urine Color Urine Appearance Urine pH Ur Specific [place] Urine Protein Urine Glucose (UA) Urine Ketones Urine Blood Urine Nitrate Urine Bilirubin Urine Urobilinogen Urine Leukocytes Urine RBC Urine WBC Ur Squamous Epith Cells Urine Mucus Ur Culture Indicated? Blood Type Antibody Screen Crossmatch Quality Measures - VTE Contraindication to Pharmacological VTE Prophylaxis: High Risk of Bleeding
[2016-07-07] MEDS: MIDAZOLAM 2 MG/2 ML VIAL IV PRN (08:08)
[2016-07-07] MEDS: MORPHINE 10 MG/1 ML VIAL IV PRN (08:26)
--- NOTE | 2016-07-07 08:42 | EKG Report ---
Stationary ECG Study [facility] Test Date: 07/07/2016 8:41:39 AM Pat Name: IRVIN LUND Department: Room: 104 Gender: F Director Of Reimbursement: KRISTAN : 1960 Requested by: Doe Mathis Order Number: [id number] Alona MD: TAMIKO OLIVEROS Intervals [place] Rate: 69 P: 50 CO: 126 QRS: 42 QRSD: 106 T: 83 QT: 422 QTc: 442 Interpretive Statements SINUS RHYTHM SEPTAL MYOCARDIAL INFARCTION, OF INDETERMINATE AGE Electronically Signed On 07-08-16 09:18:36 DETACHER by TAMIKO OLIVEROS [email or web address]
--- NOTE | 2016-07-07 08:58 | XRay Report ---
Exam: XR chest 1V portable Date: 07/07/2016 4:00 AM Indication: Status post cardiac surgery removal of drains Comparison: 07/06/2016 Technical:AP portable Findings: Endotracheal tube nasogastric tube and mediastinal drains have been removed. Sternotomy wires are present. Left IJ catheters present. The [place] catheter has been removed. Mild alveolar edema present in both bases and some pleural reaction with mild cardiomegaly. No pneumothorax. External cardiac leads are present. Impression: 1. Stable positioning of the left subclavian catheter and previous sternotomy wires 2. Removal of endotracheal tube nasogastric tube mediastinal drains and [place] catheter 3. Cardiomegaly with mild low-volume effusions and atelectatic changes PROCEDURE INTERPRETED AT [facility] DEPARTMENT OF RADIOLOGY Final Report Signed by: Dr. Francisco Ward
[2016-07-07] MEDS: SODIUM CHLOR 0.45% KCL 20 MEQ 20 MEQ/1,000 ML BAG IV SCH (09:55)
[2016-07-07] MEDS: ASPIRIN EC 325 MG TABLET PO SCH (10:06)
[2016-07-07] MEDS: DOCUSATE SODIUM 100 MG CAPSULE PO SCH (10:06)
[2016-07-07] MEDS: PANTOPRAZOLE 40 MG TABLET PO SCH (10:06)
[2016-07-07] MEDS: FERROUS SULFATE 325 MG TABLET PO SCH (10:06)
[2016-07-07] MEDS: CHLORHEXIDINE 0.12% ORAL RINSE 60 ML BOTTLE SWISH/SPIT SCH ×3 (10:07→21:48)
[2016-07-07] MEDS ORDERED: predniSONE 10 MG TABLET PO SCH (10:44)
[2016-07-07] MEDS ORDERED: amLODIPine 10 MG TABLET PO SCH (10:44)
--- NOTE | 2016-07-07 10:52 | Anesthesia ---
Anesthesia Post OP - Post Ansesthetic Evaluation Patient seen in post op: Yes Resp: within normal limits CV: within normal limits Mental: within normal limits Temp: within normal limits [id number]: within normal limits Nausea and Vomiting: within normal limits Pain: within normal limits
--- NOTE | 2016-07-07 14:09 | Cardiology Progress Note ---
Assessment and Plan - Time spent with patient Time spent with patient: Greater than 30 minutes (1) NSTEMI (non-ST elevated myocardial infarction) Status: Acute Assessment and plan: 07/06/16-patient is now post bypass graft. Balloon pump remains in. Plan/recommendation: Continue support with a balloon pump. Dr. Correia will get it out when he is ready. Watch renal function. Eventually, when she is able to take p.o., will start medications for LV systolic dysfunction and diastolic dysfunction. Neurologically she seems intact. She seems to recognize me. Current Visit: Yes (2) Systolic dysfunction, left ventricle Status: Acute Current Visit: Yes (3) Diastolic dysfunction, left ventricle Status: Acute Current Visit: Yes (4) Smoker Status: Acute Current Visit: Yes (5) Bilateral carotid artery disease Status: Acute Current Visit: Yes (6) History of hyperlipidemia Status: Chronic Current Visit: Yes (7) Nicotine dependence Status: Chronic Current Visit: Yes Qualifiers: Nicotine product type: cigarettes Cardiology - PN: Subj Interval history: On the vent. Can awaken and understand what I am saying. Exam (Progress Note) - Constitutional Vitals: Period Temp Pulse Resp BP Sys/Briones Pulse Ox Last 24 Hr 97.3 F-99.8 F 59-81 11-23 103-138/31-62 92-100 Exam: HEENT: Pupils equal, reactive to light and accommodation Neck: NoJVD or bruit Lungs clear to auscultation Heart: Regular rhythm rate with normal S1 and S2. Apical S4, 2/6 systolic ejection murmur along left lower sternal border. Abdomen: No hepatosplenomegaly Spine/extremities: No clubbing, cyanosis, or edema Neuro: Nonfocal Psych: No depression or anxiety Right femoral balloon pump entry site is without significant hematoma. Good distal pulse. Result/EKG - Labs CBC & BMP: 07/07/16 03:23 07/07/16 07:22 Lab Results: I have reviewed the past 24 hour labs Labs: Laboratory Results - last 24 hr 07/05/16 07/06/16 07/06/16 18:17 13:55 14:20 WBC RBC Hgb Hct MCV MCH MCHC RDW Plt Count MPV Neut % (Auto) Lymph % (Auto) [place] % (Auto) Eos % (Auto) Baso % (Auto) Neut # (Auto) Lymph # (Auto) [place] # (Auto) Eos # (Auto) Baso # (Auto) Total Counted Immature Gran % Nucleated RBC % Immature Gran # Segmented Neutrophils Band Neutrophils Lymphocytes Monocytes Nucleated RBCs # Platelet Estimate Pappenheimer Bodies ABG pH 7.401 ABG pCO2 41.5 ABG pO2 150.0 H ABG HCO3 25.2 ABG Total CO2 23.3 ABG O2 Sat Calc/Edilson ABG O2 Saturation 99.4 ABG Base Excess 0.9 Hemoglobin 10.3 L Hematocrit 31.7 L Potassium 4.2 Glucose 121 H Sodium Chloride Carbon Dioxide Anion Gap BUN Creatinine GFR Calculation BUN/Creatinine Ratio POC Glucose 154 H Calculated Osmolality Calcium Magnesium Total Bilirubin Direct Bilirubin AST ALT Alkaline Phosphatase Total Creatine Kinase CK-MB (CK-2) CK and CKMB Interp Troponin I Total Protein Albumin Globulin Albumin/Globulin Ratio Blood Type A POSITIVE Antibody Screen Negative Crossmatch See Detail 07/06/16 07/06/16 07/06/16 15:03 15:53 17:18 WBC RBC Hgb Hct MCV MCH MCHC RDW Plt Count MPV Neut % (Auto) Lymph % (Auto) [place] % (Auto) Eos % (Auto) Baso % (Auto) Neut # (Auto) Lymph # (Auto) [place] # (Auto) Eos # (Auto) Baso # (Auto) Total Counted Immature Gran % Nucleated RBC % Immature Gran # Segmented Neutrophils Band Neutrophils Lymphocytes Monocytes Nucleated RBCs # Platelet Estimate Pappenheimer Bodies ABG pH 7.424 7.423 ABG pCO2 39.6 39.3 ABG pO2 110.0 H 87.3 ABG HCO3 25.8 25.5 ABG Total CO2 23.5 23.4 ABG O2 Sat Calc/Edilson ABG O2 Saturation 98.7 97.3 ABG Base Excess 1.5 1.3 Hemoglobin 10.2 L 9.8 L Hematocrit 31.6 L 30.3 L Potassium 4.0 4.8 Glucose 126 H 114 H Sodium Chloride Carbon Dioxide Anion Gap BUN Creatinine GFR Calculation BUN/Creatinine Ratio POC Glucose 132 H Calculated Osmolality Calcium Magnesium Total Bilirubin Direct Bilirubin AST ALT Alkaline Phosphatase Total Creatine Kinase CK-MB (CK-2) CK and CKMB Interp Troponin I Total Protein Albumin Globulin Albumin/Globulin Ratio Blood Type Antibody Screen Crossmatch 07/06/16 07/06/16 07/06/16 18:14 18:44 19:08 WBC RBC Hgb Hct MCV MCH MCHC RDW Plt Count MPV Neut % (Auto) Lymph % (Auto) [place] % (Auto) Eos % (Auto) Baso % (Auto) Neut # (Auto) Lymph # (Auto) [place] # (Auto) Eos # (Auto) Baso # (Auto) Total Counted Immature Gran % Nucleated RBC % Immature Gran # Segmented Neutrophils Band Neutrophils Lymphocytes Monocytes Nucleated RBCs # Platelet Estimate Pappenheimer Bodies ABG pH 7.416 ABG pCO2 39.4 ABG pO2 79.2 L ABG HCO3 25.2 ABG Total CO2 23.2 ABG O2 Sat Calc/Edilson ABG O2 Saturation 96.3 ABG Base Excess 0.9 Hemoglobin 9.6 L Hematocrit 29.8 L Potassium 4.2 Glucose 105 Sodium Chloride Carbon Dioxide Anion Gap BUN Creatinine GFR Calculation BUN/Creatinine Ratio POC Glucose 141 H Calculated Osmolality Calcium Magnesium Total Bilirubin Direct Bilirubin AST ALT Alkaline Phosphatase Total Creatine Kinase 8343 H D CK-MB (CK-2) 6.3 H D CK and CKMB Interp 0.1 Troponin I 2.370 H D Total Protein Albumin Globulin Albumin/Globulin Ratio Blood Type Antibody Screen Crossmatch 07/06/16 07/06/16 07/06/16 19:51 19:59 21:23 WBC RBC Hgb Hct MCV MCH MCHC RDW Plt Count MPV Neut % (Auto) Lymph % (Auto) [place] % (Auto) Eos % (Auto) Baso % (Auto) Neut # (Auto) Lymph # (Auto) [place] # (Auto) Eos # (Auto) Baso # (Auto) Total Counted Immature Gran % Nucleated RBC % Immature Gran # Segmented Neutrophils Band Neutrophils Lymphocytes Monocytes Nucleated RBCs # Platelet Estimate Pappenheimer Bodies ABG pH 7.404 ABG pCO2 40.9 ABG pO2 83.4 ABG HCO3 25.1 ABG Total CO2 23.5 ABG O2 Sat Calc/Edilson ABG O2 Saturation 96.6 ABG Base Excess 0.8 Hemoglobin 9.3 L Hematocrit 28.8 L Potassium 4.1 Glucose 118 H Sodium Chloride Carbon Dioxide Anion Gap BUN Creatinine GFR Calculation BUN/Creatinine Ratio POC Glucose 110 H 112 H Calculated Osmolality Calcium Magnesium Total Bilirubin Direct Bilirubin AST ALT Alkaline Phosphatase Total Creatine Kinase CK-MB (CK-2) CK and CKMB Interp Troponin I Total Protein Albumin Globulin Albumin/Globulin Ratio Blood Type Antibody Screen Crossmatch 07/06/16 07/06/16 07/06/16 21:30 22:23 23:00 WBC RBC Hgb Hct MCV MCH MCHC RDW Plt Count MPV Neut % (Auto) Lymph % (Auto) [place] % (Auto) Eos % (Auto) Baso % (Auto) Neut # (Auto) Lymph # (Auto) [place] # (Auto) Eos # (Auto) Baso # (Auto) Total Counted Immature Gran % Nucleated RBC % Immature Gran # Segmented Neutrophils Band Neutrophils Lymphocytes Monocytes Nucleated RBCs # Platelet Estimate Pappenheimer Bodies ABG pH 7.399 ABG pCO2 39.8 ABG pO2 74.1 L ABG HCO3 24.3 ABG Total CO2 22.1 L ABG O2 Sat Calc/Edilson 81.4 ABG O2 Saturation 95.0 ABG Base Excess -0.1 Hemoglobin 11.0 L Hematocrit 33.9 L Potassium 4.6 Glucose 120 H Sodium Chloride Carbon Dioxide Anion Gap BUN Creatinine GFR Calculation BUN/Creatinine Ratio POC Glucose 111 H Calculated Osmolality Calcium Magnesium Total Bilirubin Direct Bilirubin AST ALT Alkaline Phosphatase Total Creatine Kinase CK-MB (CK-2) CK and CKMB Interp Troponin I Total Protein Albumin Globulin Albumin/Globulin Ratio Blood Type Antibody Screen Crossmatch 07/07/16 07/07/16 07/07/16 00:00 00:50 01:30 WBC RBC Hgb Hct MCV MCH MCHC RDW Plt Count MPV Neut % (Auto) Lymph % (Auto) [place] % (Auto) Eos % (Auto) Baso % (Auto) Neut # (Auto) Lymph # (Auto) [place] # (Auto) Eos # (Auto) Baso # (Auto) Total Counted Immature Gran % Nucleated RBC % Immature Gran # Segmented Neutrophils Band Neutrophils Lymphocytes Monocytes Nucleated RBCs # Platelet Estimate Pappenheimer Bodies ABG pH 7.416 7.401 7.407 ABG pCO2 40.4 40.0 37.9 ABG pO2 82.0 81.4 66.2 L ABG HCO3 25.4 24.5 23.9 ABG Total CO2 26.6 22.2 L 21.2 L ABG O2 Sat Calc/Edil[place] ABG O2 Saturation 95.3 96.3 93.2 L ABG Base Excess 0.8 0.1 -0.6 Hemoglobin 11.7 L 11.2 L 11.7 L Hematocrit 34.0 L 34.6 L 36.0 L Potassium 3.9 5.2 H 5.1 Glucose 127 H 134 H 137 H Sodium Chloride Carbon Dioxide Anion Gap BUN Creatinine GFR Calculation BUN/Creatinine Ratio POC Glucose Calculated Osmolality Calcium Magnesium Total Bilirubin Direct Bilirubin AST ALT Alkaline Phosphatase Total Creatine Kinase CK-MB (CK-2) CK and CKMB Interp Troponin I Total Protein Albumin Globulin Albumin/Globulin Ratio Blood Type Antibody Screen Crossmatch 07/07/16 07/07/16 07/07/16 03:20 03:23 03:23 WBC 13.2 RBC 3.48 L Hgb 10.6 L Hct 32.1 L MCV 92.2 MCH 31 MCHC 33.0 RDW 14.9 Plt Count 94 L D MPV 11.3 Neut % (Auto) 89.1 H Lymph % (Auto) 4.9 L [place] % (Auto) 5.4 Eos % (Auto) 0.0 Baso % (Auto) 0.1 Neut # (Auto) 11.8 H Lymph # (Auto) 0.7 L [place] # (Auto) 0.7 Eos # (Auto) 0.0 Baso # (Auto) 0.0 Total Counted 100 Immature Gran % 0.5 Nucleated RBC % 0.0 Immature Gran # 0.06 Segmented Neutrophils 88 H Band Neutrophils 3 Lymphocytes 6 L Monocytes 3 Nucleated RBCs # 0.00 Platelet Estimate Decreased Pappenheimer Bodies [employer] ABG pH 7.397 ABG pCO2 38.9 ABG pO2 73.3 L ABG HCO3 23.8 ABG Total CO2 21.6 L ABG O2 Sat Calc/Edil[place] ABG O2 Saturation 94.6 L ABG Base Excess -0.7 Hemoglobin 10.7 L Hematocrit 32.9 L Potassium 4.2 Glucose 122 H Sodium Chloride Carbon Dioxide Anion Gap BUN Creatinine GFR Calculation BUN/Creatinine Ratio POC Glucose Calculated Osmolality Calcium Magnesium Total Bilirubin Direct Bilirubin AST ALT Alkaline Phosphatase Total Creatine Kinase 333 H D CK-MB (CK-2) 14.0 H D CK and CKMB Interp 4.2 Troponin I 3.420 H D Total Protein Albumin Globulin Albumin/Globulin Ratio Blood Type Antibody Screen Crossmatch 07/07/16 07/07/16 07/07/16 03:23 04:30 05:25 WBC RBC Hgb Hct MCV MCH MCHC RDW Plt Count MPV Neut % (Auto) Lymph % (Auto) [place] % (Auto) Eos % (Auto) Baso % (Auto) Neut # (Auto) Lymph # (Auto) [place] # (Auto) Eos # (Auto) Baso # (Auto) Total Counted Immature Gran % Nucleated RBC % Immature Gran # Segmented Neutrophils Band Neutrophils Lymphocytes Monocytes Nucleated RBCs # Platelet Estimate Pappenheimer Bodies ABG pH 7.413 ABG pCO2 38.5 ABG pO2 77.7 L ABG HCO3 24.5 ABG Total CO2 22.1 L ABG O2 Sat Calc/Edil[place] ABG O2 Saturation 95.8 ABG Base Excess 0.1 Hemoglobin 10.6 L Hematocrit 32.7 L Potassium 4.4 4.1 Glucose 114 H 113 H Sodium 143 Chloride 108 H Carbon Dioxide 25 Anion Gap 14.4 BUN 18 Creatinine 0.80 GFR Calculation 78 BUN/Creatinine Ratio 22.00 H POC Glucose 102 Calculated Osmolality 287.0 Calcium 7.7 L Magnesium 2.0 Total Bilirubin 0.90 Direct Bilirubin 0.3 H AST 25 ALT 13 Alkaline Phosphatase 57 Total Creatine Kinase CK-MB (CK-2) CK and CKMB Interp Troponin I Total Protein 5.5 L Albumin 3.4 Globulin 2.1 L Albumin/Globulin Ratio 1.6 Blood Type Antibody Screen Crossmatch 07/07/16 07/07/16 07/07/16 06:20 07:22 08:54 WBC RBC Hgb Hct MCV MCH MCHC RDW Plt Count MPV Neut % (Auto) Lymph % (Auto) [place] % (Auto) Eos % (Auto) Baso % (Auto) Neut # (Auto) Lymph # (Auto) [place] # (Auto) Eos # (Auto) Baso # (Auto) Total Counted Immature Gran % Nucleated RBC % Immature Gran # Segmented Neutrophils Band Neutrophils Lymphocytes Monocytes Nucleated RBCs # Platelet Estimate Pappenheimer Bodies ABG pH 7.412 ABG pCO2 37.0 ABG pO2 81.9 ABG HCO3 23.8 ABG Total CO2 21.2 L ABG O2 Sat Calc/[place]il[place] ABG O2 Saturation 96.5 ABG Base Excess -0.7 Hemoglobin 10.7 L Hematocrit 33.0 L Potassium 4.4 4.6 Glucose 103 Sodium Chloride Carbon Dioxide Anion Gap BUN Creatinine GFR Calculation BUN/Creatinine Ratio POC Glucose 100 Calculated Osmolality Calcium Magnesium Total Bilirubin Direct Bilirubin AST ALT Alkaline Phosphatase Total Creatine Kinase CK-MB (CK-2) CK and CKMB Interp Troponin I Total Protein Albumin Globulin Albumin/Globulin Ratio Blood Type Antibody Screen Crossmatch 07/07/16 12:41 WBC RBC Hgb Hct MCV MCH MCHC RDW Plt Count MPV Neut % (Auto) Lymph % (Auto) [place] % (Auto) Eos % (Auto) Baso % (Auto) Neut # (Auto) Lymph # (Auto) [place] # (Auto) Eos # (Auto) Baso # (Auto) Total Counted Immature Gran % Nucleated RBC % Immature Gran # Segmented Neutrophils Band Neutrophils Lymphocytes Monocytes Nucleated RBCs # Platelet Estimate Pappenheimer Bodies ABG pH ABG pCO2 ABG pO2 ABG HCO3 ABG Total CO2 ABG O2 Sat Calc/Edil[place] ABG O2 Saturation ABG Base Excess Hemoglobin Hematocrit Potassium Glucose Sodium Chloride Carbon Dioxide Anion Gap BUN Creatinine GFR Calculation BUN/Creatinine Ratio POC Glucose 140 H Calculated Osmolality Calcium Magnesium Total Bilirubin Direct Bilirubin AST ALT Alkaline Phosphatase Total Creatine Kinase CK-MB (CK-2) CK and CKMB Interp Troponin I Total Protein Albumin Globulin Albumin/Globulin Ratio Blood Type Antibody Screen Crossmatch - Diagnostic Findings Procedure: Chest x-ray: report reviewed by me - EKG EKG results: interpreted by pr Quality Measures - VTE Deep Vein Thrombosis/Pulmonary Embolism Present on Admission: No Contraindication to Pharmacological VTE Prophylaxis: High Risk of Bleeding
--- NOTE | 2016-07-07 14:18 | Cardiology Progress Note ---
Assessment and Plan (1) NSTEMI (non-ST elevated myocardial infarction) Status: Acute Assessment and plan: 07/06/16-patient is now post bypass graft. Balloon pump remains in. Plan/recommendation: Continue support with a balloon pump. Dr. Correia will get it out when he is ready. Watch renal function. Eventually, when she is able to take p.o., will start medications for LV systolic dysfunction and diastolic dysfunction. Neurologically she seems intact. She seems to recognize me. 07/07/16- Plan/recommendation: Balloon pump is out. Endotracheal tube is out. She is doing fairly well. I conferred care with Dr. Correia and the patient's nurse. She will be moved up to telemetry. Since she is able to take p.o., I will start her on low-dose of medications which would help treat her LV systolic dysfunction/prevent her from going into overt heart failure--Capoten 6.25 mg p.o. twice daily, carvedilol 3.125 mg p.o. twice daily, spironolactone 6.25 mg p.o. daily, furosemide 20 mg p.o. twice daily. Hopefully, some of her LV systolic dysfunction will improve with medications and with revascularization. Her LVEF at the time of the cath was around 30%. Current Visit: Yes (2) Systolic dysfunction, left ventricle Status: Acute Current Visit: Yes (3) Diastolic dysfunction, left ventricle Status: Acute Current Visit: Yes (4) Smoker Status: Acute Current Visit: Yes (5) Bilateral carotid artery disease Status: Acute Current Visit: Yes (6) History of hyperlipidemia Status: Chronic Current Visit: Yes (7) Nicotine dependence Status: Chronic Current Visit: Yes Qualifiers: Nicotine product type: cigarettes (8) Status post coronary artery bypass grafting Status: Acute Current Visit: Yes Cardiology - PN: Subj Interval history: Awake and alert. Endotracheal tube is out. Balloon pump is out. She is somewhat sore in her chest but not excessively so. Exam (Progress Note) - Constitutional Vitals: Period Temp Pulse Resp BP Sys/Briones Pulse Ox Last 24 Hr 97.3 F-99.8 F 59-81 11-23 103-138/31-62 92-100 Exam: HEENT: Pupils equal, reactive to light and accommodation Neck: NoJVD or bruit Lungs clear to auscultation Heart: Regular rhythm rate with normal S1 and S2. Apical S4, 2/6 systolic ejection murmur along left lower sternal border. Abdomen: No hepatosplenomegaly Spine/extremities: No clubbing, cyanosis, or edema Neuro: Nonfocal Psych: No depression or anxiety Right femoral artery puncture site is without significant hematoma. Good distal pulse. Result/EKG - Labs CBC & BMP: 07/07/16 03:23 07/07/16 07:22 Lab Results: I have reviewed the past 24 hour labs Labs: Laboratory Results - last 24 hr 07/05/16 07/06/16 07/06/16 18:17 13:55 14:20 WBC RBC Hgb Hct MCV MCH MCHC RDW Plt Count MPV Neut % (Auto) Lymph % (Auto) Benzie % (Auto) Eos % (Auto) Baso % (Auto) Neut # (Auto) Lymph # (Auto) [place] # (Auto) Eos # (Auto) Baso # (Auto) Total Counted Immature Gran % Nucleated RBC % Immature Gran # Segmented Neutrophils Band Neutrophils Lymphocytes Monocytes Nucleated RBCs # Platelet Estimate Pappenheimer Bodies ABG pH 7.401 ABG pCO2 41.5 ABG pO2 150.0 H ABG HCO3 25.2 ABG Total CO2 23.3 ABG O2 Sat Calc/Edilson ABG O2 Saturation 99.4 ABG Base Excess 0.9 Hemoglobin 10.3 L Hematocrit 31.7 L Potassium 4.2 Glucose 121 H Sodium Chloride Carbon Dioxide Anion Gap BUN Creatinine GFR Calculation BUN/Creatinine Ratio POC Glucose 154 H Calculated Osmolality Calcium Magnesium Total Bilirubin Direct Bilirubin AST ALT Alkaline Phosphatase Total Creatine Kinase CK-MB (CK-2) CK and CKMB Interp Troponin I Total Protein Albumin Globulin Albumin/Globulin Ratio Blood Type A POSITIVE Antibody Screen Negative Crossmatch See Detail 07/06/16 07/06/16 07/06/16 15:03 15:53 17:18 WBC RBC Hgb Hct MCV MCH MCHC RDW Plt Count MPV Neut % (Auto) Lymph % (Auto) Benzie % (Auto) Eos % (Auto) Baso % (Auto) Neut # (Auto) Lymph # (Auto) [place] # (Auto) Eos # (Auto) Baso # (Auto) Total Counted Immature Gran % Nucleated RBC % Immature Gran # Segmented Neutrophils Band Neutrophils Lymphocytes Monocytes Nucleated RBCs # Platelet Estimate Pappenheimer Bodies ABG pH 7.424 7.423 ABG pCO2 39.6 39.3 ABG pO2 110.0 H 87.3 ABG HCO3 25.8 25.5 ABG Total CO2 23.5 23.4 ABG O2 Sat Calc/Edilson ABG O2 Saturation 98.7 97.3 ABG Base Excess 1.5 1.3 Hemoglobin 10.2 L 9.8 L Hematocrit 31.6 L 30.3 L Potassium 4.0 4.8 Glucose 126 H 114 H Sodium Chloride Carbon Dioxide Anion Gap BUN Creatinine GFR Calculation BUN/Creatinine Ratio POC Glucose 132 H Calculated Osmolality Calcium Magnesium Total Bilirubin Direct Bilirubin AST ALT Alkaline Phosphatase Total Creatine Kinase CK-MB (CK-2) CK and CKMB Interp Troponin I Total Protein Albumin Globulin Albumin/Globulin Ratio Blood Type Antibody Screen Crossmatch 07/06/16 07/06/16 07/06/16 18:14 18:44 19:08 WBC RBC Hgb Hct MCV MCH MCHC RDW Plt Count MPV Neut % (Auto) Lymph % (Auto) [place]zie % (Auto) Eos % (Auto) Baso % (Auto) Neut # (Auto) Lymph # (Auto) [place] # (Auto) Eos # (Auto) Baso # (Auto) Total Counted Immature Gran % Nucleated RBC % Immature Gran # Segmented Neutrophils Band Neutrophils Lymphocytes Monocytes Nucleated RBCs # Platelet Estimate Pappenheimer Bodies ABG pH 7.416 ABG pCO2 39.4 ABG pO2 79.2 L ABG HCO3 25.2 ABG Total CO2 23.2 ABG O2 Sat Calc/Edilson ABG O2 Saturation 96.3 ABG Base Excess 0.9 Hemoglobin 9.6 L Hematocrit 29.8 L Potassium 4.2 Glucose 105 Sodium Chloride Carbon Dioxide Anion Gap BUN Creatinine GFR Calculation BUN/Creatinine Ratio POC Glucose 141 H Calculated Osmolality Calcium Magnesium Total Bilirubin Direct Bilirubin AST ALT Alkaline Phosphatase Total Creatine Kinase 8343 H D CK-MB (CK-2) 6.3 H D CK and CKMB Interp 0.1 Troponin I 2.370 H D Total Protein Albumin Globulin Albumin/Globulin Ratio Blood Type Antibody Screen Crossmatch 07/06/16 07/06/16 07/06/16 19:51 19:59 21:23 WBC RBC Hgb Hct MCV MCH MCHC RDW Plt Count MPV Neut % (Auto) Lymph % (Auto) Benzie % (Auto) Eos % (Auto) Baso % (Auto) Neut # (Auto) Lymph # (Auto) [place] # (Auto) Eos # (Auto) Baso # (Auto) Total Counted Immature Gran % Nucleated RBC % Immature Gran # Segmented Neutrophils Band Neutrophils Lymphocytes Monocytes Nucleated RBCs # Platelet Estimate Pappenheimer Bodies ABG pH 7.404 ABG pCO2 40.9 ABG pO2 83.4 ABG HCO3 25.1 ABG Total CO2 23.5 ABG O2 Sat Calc/Edilson ABG O2 Saturation 96.6 ABG Base Excess 0.8 Hemoglobin 9.3 L Hematocrit 28.8 L Potassium 4.1 Glucose 118 H Sodium Chloride Carbon Dioxide Anion Gap BUN Creatinine GFR Calculation BUN/Creatinine Ratio POC Glucose 110 H 112 H Calculated Osmolality Calcium Magnesium Total Bilirubin Direct Bilirubin AST ALT Alkaline Phosphatase Total Creatine Kinase CK-MB (CK-2) CK and CKMB Interp Troponin I Total Protein Albumin Globulin Albumin/Globulin Ratio Blood Type Antibody Screen Crossmatch 07/06/16 07/06/16 07/06/16 21:30 22:23 23:00 WBC RBC Hgb Hct MCV MCH MCHC RDW Plt Count MPV Neut % (Auto) Lymph % (Auto) Benzie % (Auto) Eos % (Auto) Baso % (Auto) Neut # (Auto) Lymph # (Auto) [place]zie # (Auto) Eos # (Auto) Baso # (Auto) Total Counted Immature Gran % Nucleated RBC % Immature Gran # Segmented Neutrophils Band Neutrophils Lymphocytes Monocytes Nucleated RBCs # Platelet Estimate Pappenheimer Bodies ABG pH 7.399 ABG pCO2 39.8 ABG pO2 74.1 L ABG HCO3 24.3 ABG Total CO2 22.1 L ABG O2 Sat Calc/Edilson 81.4 ABG O2 Saturation 95.0 ABG Base Excess -0.1 Hemoglobin 11.0 L Hematocrit 33.9 L Potassium 4.6 Glucose 120 H Sodium Chloride Carbon Dioxide Anion Gap BUN Creatinine GFR Calculation BUN/Creatinine Ratio POC Glucose 111 H Calculated Osmolality Calcium Magnesium Total Bilirubin Direct Bilirubin AST ALT Alkaline Phosphatase Total Creatine Kinase CK-MB (CK-2) CK and CKMB Interp Troponin I Total Protein Albumin Globulin Albumin/Globulin Ratio Blood Type Antibody Screen Crossmatch 07/07/16 07/07/16 07/07/16 00:00 00:50 01:30 WBC RBC Hgb Hct MCV MCH MCHC RDW Plt Count MPV Neut % (Auto) Lymph % (Auto) Benzie % (Auto) Eos % (Auto) Baso % (Auto) Neut # (Auto) Lymph # (Auto) [place]zie # (Auto) Eos # (Auto) Baso # (Auto) Total Counted Immature Gran % Nucleated RBC % Immature Gran # Segmented Neutrophils Band Neutrophils Lymphocytes Monocytes Nucleated RBCs # Platelet Estimate Pappenheimer Bodies ABG pH 7.416 7.401 7.407 ABG pCO2 40.4 40.0 37.9 ABG pO2 82.0 81.4 66.2 L ABG HCO3 25.4 24.5 23.9 ABG Total CO2 26.6 22.2 L 21.2 L ABG O2 Sat Calc/Edilson ABG O2 Saturation 95.3 96.3 93.2 L ABG Base Excess 0.8 0.1 -0.6 Hemoglobin 11.7 L 11.2 L 11.7 L Hematocrit 34.0 L 34.6 L 36.0 L Potassium 3.9 5.2 H 5.1 Glucose 127 H 134 H 137 H Sodium Chloride Carbon Dioxide Anion Gap BUN Creatinine GFR Calculation BUN/Creatinine Ratio POC Glucose Calculated Osmolality Calcium Magnesium Total Bilirubin Direct Bilirubin AST ALT Alkaline Phosphatase Total Creatine Kinase CK-MB (CK-2) CK and CKMB Interp Troponin I Total Protein Albumin Globulin Albumin/Globulin Ratio Blood Type Antibody Screen Crossmatch 07/07/16 07/07/16 07/07/16 03:20 03:23 03:23 WBC 13.2 RBC 3.48 L Hgb 10.6 L Hct 32.1 L MCV 92.2 MCH 31 MCHC 33.0 RDW 14.9 Plt Count 94 L D MPV 11.3 Neut % (Auto) 89.1 H Lymph % (Auto) 4.9 L Benzie % (Auto) 5.4 Eos % (Auto) 0.0 Baso % (Auto) 0.1 Neut # (Auto) 11.8 H Lymph # (Auto) 0.7 L Benzie # (Auto) 0.7 Eos # (Auto) 0.0 Baso # (Auto) 0.0 Total Counted 100 Immature Gran % 0.5 Nucleated RBC % 0.0 Immature Gran # 0.06 Segmented Neutrophils 88 H Band Neutrophils 3 Lymphocytes 6 L Monocytes 3 Nucleated RBCs # 0.00 Platelet Estimate Decreased Pappenheimer Bodies [employer] ABG pH 7.397 ABG pCO2 38.9 ABG pO2 73.3 L ABG HCO3 23.8 ABG Total CO2 21.6 L ABG O2 Sat Calc/Edilson ABG O2 Saturation 94.6 L ABG Base Excess -0.7 Hemoglobin 10.7 L Hematocrit 32.9 L Potassium 4.2 Glucose 122 H Sodium Chloride Carbon Dioxide Anion Gap BUN Creatinine GFR Calculation BUN/Creatinine Ratio POC Glucose Calculated Osmolality Calcium Magnesium Total Bilirubin Direct Bilirubin AST ALT Alkaline Phosphatase Total Creatine Kinase 333 H D CK-MB (CK-2) 14.0 H D CK and CKMB Interp 4.2 Troponin I 3.420 H D Total Protein Albumin Globulin Albumin/Globulin Ratio Blood Type Antibody Screen Crossmatch 07/07/16 07/07/16 07/07/16 03:23 04:30 05:25 WBC RBC Hgb Hct MCV MCH MCHC RDW Plt Count MPV Neut % (Auto) Lymph % (Auto) Benzie % (Auto) Eos % (Auto) Baso % (Auto) Neut # (Auto) Lymph # (Auto) Benzie # (Auto) Eos # (Auto) Baso # (Auto) Total Counted Immature Gran % Nucleated RBC % Immature Gran # Segmented Neutrophils Band Neutrophils Lymphocytes Monocytes Nucleated RBCs # Platelet Estimate Pappenheimer Bodies ABG pH 7.413 ABG pCO2 38.5 ABG pO2 77.7 L ABG HCO3 24.5 ABG Total CO2 22.1 L ABG O2 Sat Calc/Edilson ABG O2 Saturation 95.8 ABG Base Excess 0.1 Hemoglobin 10.6 L Hematocrit 32.7 L Potassium 4.4 4.1 Glucose 114 H 113 H Sodium 143 Chloride 108 H Carbon Dioxide 25 Anion Gap 14.4 BUN 18 Creatinine 0.80 GFR Calculation 78 BUN/Creatinine Ratio 22.00 H POC Glucose 102 Calculated Osmolality 287.0 Calcium 7.7 L Magnesium 2.0 Total Bilirubin 0.90 Direct Bilirubin 0.3 H AST 25 ALT 13 Alkaline Phosphatase 57 Total Creatine Kinase CK-MB (CK-2) CK and CKMB Interp Troponin I Total Protein 5.5 L Albumin 3.4 Globulin 2.1 L Albumin/Globulin Ratio 1.6 Blood Type Antibody Screen Crossmatch 07/07/16 07/07/16 07/07/16 06:20 07:22 08:54 WBC RBC Hgb Hct MCV MCH MCHC RDW Plt Count MPV Neut % (Auto) Lymph % (Auto) Benzie % (Auto) Eos % (Auto) Baso % (Auto) Neut # (Auto) Lymph # (Auto) Benzie # (Auto) Eos # (Auto) Baso # (Auto) Total Counted Immature Gran % Nucleated RBC % Immature Gran # Segmented Neutrophils Band Neutrophils Lymphocytes Monocytes Nucleated RBCs # Platelet Estimate Pappenheimer Bodies ABG pH 7.412 ABG pCO2 37.0 ABG pO2 81.9 ABG HCO3 23.8 ABG Total CO2 21.2 L ABG O2 Sat Calc/Edilson ABG O2 Saturation 96.5 ABG Base Excess -0.7 Hemoglobin 10.7 L Hematocrit 33.0 L Potassium 4.4 4.6 Glucose 103 Sodium Chloride Carbon Dioxide Anion Gap BUN Creatinine GFR Calculation BUN/Creatinine Ratio POC Glucose 100 Calculated Osmolality Calcium Magnesium Total Bilirubin Direct Bilirubin AST ALT Alkaline Phosphatase Total Creatine Kinase CK-MB (CK-2) CK and CKMB Interp Troponin I Total Protein Albumin Globulin Albumin/Globulin Ratio Blood Type Antibody Screen Crossmatch 07/07/16 12:41 WBC RBC Hgb Hct MCV MCH MCHC RDW Plt Count MPV Neut % (Auto) Lymph % (Auto) Benzie % (Auto) Eos % (Auto) Baso % (Auto) Neut # (Auto) Lymph # (Auto) Benzie # (Auto) Eos # (Auto) Baso # (Auto) Total Counted Immature Gran % Nucleated RBC % Immature Gran # Segmented Neutrophils Band Neutrophils Lymphocytes Monocytes Nucleated RBCs # Platelet Estimate Pappenheimer Bodies ABG pH ABG pCO2 ABG pO2 ABG HCO3 ABG Total CO2 ABG O2 Sat Calc/Edilson ABG O2 Saturation ABG Base Excess Hemoglobin Hematocrit Potassium Glucose Sodium Chloride Carbon Dioxide Anion Gap BUN Creatinine GFR Calculation BUN/Creatinine Ratio POC Glucose 140 H Calculated Osmolality Calcium Magnesium Total Bilirubin Direct Bilirubin AST ALT Alkaline Phosphatase Total Creatine Kinase CK-MB (CK-2) CK and CKMB Interp Troponin I Total Protein Albumin Globulin Albumin/Globulin Ratio Blood Type Antibody Screen Crossmatch - EKG EKG results: interpreted by wa Quality Measures - VTE Deep Vein Thrombosis/Pulmonary Embolism Present on Admission: No Contraindication to Pharmacological VTE Prophylaxis: High Risk of Bleeding
[2016-07-07] MEDS: CARVEDILOL 3.125 MG TABLET PO SCH ×2 (15:52→21:49)
[2016-07-07] MEDS: CAPTOPRIL 6.25 MG TABLET PO SCH ×2 (16:40→21:49)
[2016-07-08] MEDS: oxyCODONE/ACETAMINOPHEN 5-325 MG TABLET PO PRN (01:30)
[2016-07-08 04:54] LABS: Eosinophils % 0.1 % (0.00-10.9); Hematocrit 32.3 VOL% (35.7-47.0); Hemoglobin 10.5 GM/DL (12.0-16.0); Immature Granulocytes % 0.5 %; Immature Granulocytes Absolute 0.06 #; Lymphocytes # 1.1 10*3/uL (1.4-4.0); Lymphocytes % 9.1 % (21.3-54.2); Mean Corpuscular HGB Conc 32.5 GM/DL (32-36); Mean Corpuscular Hemoglobin 30 PG (27-34); Mean Corpuscular Volume 91.2 FL (87-102); Mean Platelet Volume 11.7 FL (9.6-12.0); Monocytes # 0.9 10*3/uL (0.11-0.8); Monocytes % 7.7 % (1.7-12.7); Neutrophils % 82.6 % (38.7-73.9); Platelet Count 114 10*3/uL (130-400); Red Blood Count 3.54 10*6/uL (3.8-5.5); Red Cell Distribution Width 14.6 % (9.3-17.3); White Blood Count 12.1 10*3/uL (4.5-13.71)
[2016-07-08 05:25] LABS: Alanine Aminotransferase 16 U/L (13-56); Albumin 3.2 G/DL (3.4-5.0); Alkaline Phosphatase 62 U/L (45-117); Aspartate Amino Transferase 17 U/L (0-37); Bilirubin,Direct 0.2 MG/DL (0.0-0.20); Bilirubin,Indirect 0.3 MG/DL (0.0-1.0); Blood Urea Nitrogen 19 MG/DL (7-18); Calcium 8.1 MG/DL (8.5-10.1); Glucose 113 MG/DL (74-106); Magnesium 2.4 MG/DL (1.8-2.4); Osmolality,Calculated 288.8 MOS/KG (273-304); Potassium 4.3 MMOL/L (3.5-5.1); Sodium 144 MMOL/L (136-145); Total Protein 5.4 G/DL (6.4-8.3)
[2016-07-08] MEDS ORDERED: FUROSEMIDE 40 MG/4 ML VIAL IV ONE (06:00)
--- NOTE | 2016-07-08 06:17 | Cardiothoracic Progress Note ---
Cardiothoracic Subjective Interval history: Looks and feels okay this morning. She has been up walking to the bathroom. Vital signs have been stable and she is breathing comfortably. Only complaint is some generalized soreness. We will continue to treat this symptomatically and gradually increase her activities as she tolerates it. Exam (Progress Note) - Constitutional Vitals: Period Temp Pulse Resp BP Sys/Briones Pulse Ox Last 24 Hr 97.6 F-99.8 F 63-83 12-20 105-135/52-62 93-98 Result/EKG - Labs CBC & BMP: 07/08/16 03:47 07/08/16 03:47 Labs: Laboratory Results - last 24 hr 07/06/16 07/06/16 07/06/16 13:55 17:18 18:14 WBC RBC Hgb Hct MCV MCH MCHC RDW Plt Count MPV Neut % (Auto) Lymph % (Auto) [place] % (Auto) Eos % (Auto) Baso % (Auto) Neut # (Auto) Lymph # (Auto) [place] # (Auto) Eos # (Auto) Baso # (Auto) Total Counted Immature Gran % Nucleated RBC % Immature Gran # Segmented Neutrophils Band Neutrophils Lymphocytes Monocytes Nucleated RBCs # Platelet Estimate Pappenheimer Bodies ABG pH ABG pCO2 ABG pO2 ABG HCO3 ABG Total CO2 ABG O2 Saturation ABG Base Excess Hemoglobin Hematocrit Potassium Glucose Sodium Chloride Carbon Dioxide Anion Gap BUN Creatinine GFR Calculation BUN/Creatinine Ratio POC Glucose 154 H 132 H 141 H Calculated Osmolality Calcium Magnesium Total Bilirubin Direct Bilirubin Indirect Bilirubin AST ALT Alkaline Phosphatase Total Creatine Kinase CK-MB (CK-2) Troponin I Total Protein Albumin Globulin Albumin/Globulin Ratio 07/06/16 07/06/16 07/06/16 19:51 21:23 22:23 WBC RBC Hgb Hct MCV MCH MCHC RDW Plt Count MPV Neut % (Auto) Lymph % (Auto) [place] % (Auto) Eos % (Auto) Baso % (Auto) Neut # (Auto) Lymph # (Auto) [place] # (Auto) Eos # (Auto) Baso # (Auto) Total Counted Immature Gran % Nucleated RBC % Immature Gran # Segmented Neutrophils Band Neutrophils Lymphocytes Monocytes Nucleated RBCs # Platelet Estimate Pappenheimer Bodies ABG pH ABG pCO2 ABG pO2 ABG HCO3 ABG Total CO2 ABG O2 Saturation ABG Base Excess Hemoglobin Hematocrit Potassium Glucose Sodium Chloride Carbon Dioxide Anion Gap BUN Creatinine GFR Calculation BUN/Creatinine Ratio POC Glucose 110 H 112 H 111 H Calculated Osmolality Calcium Magnesium Total Bilirubin Direct Bilirubin Indirect Bilirubin AST ALT Alkaline Phosphatase Total Creatine Kinase CK-MB (CK-2) Troponin I Total Protein Albumin Globulin Albumin/Globulin Ratio 07/07/16 07/07/16 07/07/16 03:23 05:25 06:20 WBC 13.2 RBC 3.48 L Hgb 10.6 L Hct 32.1 L MCV 92.2 MCH 31 MCHC 33.0 RDW 14.9 Plt Count 94 L D MPV 11.3 Neut % (Auto) 89.1 H Lymph % (Auto) 4.9 L [place] % (Auto) 5.4 Eos % (Auto) 0.0 Baso % (Auto) 0.1 Neut # (Auto) 11.8 H Lymph # (Auto) 0.7 L [place] # (Auto) 0.7 Eos # (Auto) 0.0 Baso # (Auto) 0.0 Total Counted 100 Immature Gran % 0.5 Nucleated RBC % 0.0 Immature Gran # 0.06 Segmented Neutrophils 88 H Band Neutrophils 3 Lymphocytes 6 L Monocytes 3 Nucleated RBCs # 0.00 Platelet Estimate Decreased Pappenheimer Bodies Sales 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 [employer]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 ABG pH 7.412 ABG pCO2 37.0 ABG pO2 81.9 ABG HCO3 23.8 ABG Total CO2 21.2 L ABG O2 Saturation 96.5 ABG Base Excess -0.7 Hemoglobin 10.7 L Hematocrit 33.0 L Potassium 4.4 Glucose 103 Sodium Chloride Carbon Dioxide Anion Gap BUN Creatinine GFR Calculation BUN/Creatinine Ratio POC Glucose 102 Calculated Osmolality Calcium Magnesium Total Bilirubin Direct Bilirubin Indirect Bilirubin AST ALT Alkaline Phosphatase Total Creatine Kinase CK-MB (CK-2) Troponin I Total Protein Albumin Globulin Albumin/Globulin Ratio 07/07/16 07/07/16 07/07/16 07:22 08:54 12:41 WBC RBC Hgb Hct MCV MCH MCHC RDW Plt Count MPV Neut % (Auto) Lymph % (Auto) [place] % (Auto) Eos % (Auto) Baso % (Auto) Neut # (Auto) Lymph # (Auto) [place] # (Auto) Eos # (Auto) Baso # (Auto) Total Counted Immature Gran % Nucleated RBC % Immature Gran # Segmented Neutrophils Band Neutrophils Lymphocytes Monocytes Nucleated RBCs # Platelet Estimate Pappenheimer Bodies ABG pH ABG pCO2 ABG pO2 ABG HCO3 ABG Total CO2 ABG O2 Saturation ABG Base Excess Hemoglobin Hematocrit Potassium 4.6 Glucose Sodium Chloride Carbon Dioxide Anion Gap BUN Creatinine GFR Calculation BUN/Creatinine Ratio POC Glucose 100 140 H Calculated Osmolality Calcium Magnesium Total Bilirubin Direct Bilirubin Indirect Bilirubin AST ALT Alkaline Phosphatase Total Creatine Kinase CK-MB (CK-2) Troponin I Total Protein Albumin Globulin Albumin/Globulin Ratio 07/07/16 07/07/16 07/08/16 15:40 19:41 03:47 WBC 12.1 RBC 3.54 L Hgb 10.5 L Hct 32.3 L MCV 91.2 MCH 30 MCHC 32.5 RDW 14.6 Plt Count 114 L D MPV 11.7 Neut % (Auto) 82.6 H Lymph % (Auto) 9.1 L [place] % (Auto) 7.7 Eos % (Auto) 0.1 Baso % (Auto) 0.0 Neut # (Auto) 10.0 H Lymph # (Auto) 1.1 L [place] # (Auto) 0.9 H Eos # (Auto) 0.0 Baso # (Auto) 0.0 Total Counted Immature Gran % 0.5 Nucleated RBC % 0.0 Immature Gran # 0.06 Segmented Neutrophils Band Neutrophils Lymphocytes Monocytes Nucleated RBCs # 0.00 Platelet Estimate Pappenheimer Bodies ABG pH ABG pCO2 ABG pO2 ABG HCO3 ABG Total CO2 ABG O2 Saturation ABG Base Excess Hemoglobin Hematocrit Potassium Glucose Sodium Chloride Carbon Dioxide Anion Gap BUN Creatinine GFR Calculation BUN/Creatinine Ratio POC Glucose 123 H 201 H Calculated Osmolality Calcium Magnesium Total Bilirubin Direct Bilirubin Indirect Bilirubin AST ALT Alkaline Phosphatase Total Creatine Kinase CK-MB (CK-2) Troponin I Total Protein Albumin Globulin Albumin/Globulin Ratio 07/08/16 03:47 WBC RBC Hgb Hct MCV MCH MCHC RDW Plt Count MPV Neut % (Auto) Lymph % (Auto) [place] % (Auto) Eos % (Auto) Baso % (Auto) Neut # (Auto) Lymph # (Auto) [place] # (Auto) Eos # (Auto) Baso # (Auto) Total Counted Immature Gran % Nucleated RBC % Immature Gran # Segmented Neutrophils Band Neutrophils Lymphocytes Monocytes Nucleated RBCs # Platelet Estimate Pappenheimer Bodies ABG pH ABG pCO2 ABG pO2 ABG HCO3 ABG Total CO2 ABG O2 Saturation ABG Base Excess Hemoglobin Hematocrit Potassium 4.3 Glucose 113 H Sodium 144 Chloride 106 Carbon Dioxide 29 Anion Gap 13.3 BUN 19 H Creatinine 0.80 GFR Calculation 79 BUN/Creatinine Ratio 23.00 H POC Glucose Calculated Osmolality 288.8 Calcium 8.1 L Magnesium 2.4 Total Bilirubin 0.50 Direct Bilirubin 0.2 Indirect Bilirubin 0.3 AST 17 ALT 16 Alkaline Phosphatase 62 Total Creatine Kinase 294 H CK-MB (CK-2) 4.9 H D Troponin I 1.740 H D Total Protein 5.4 L Albumin 3.2 L Globulin 2.2 L Albumin/Globulin Ratio 1.4 Quality Measures - VTE Deep Vein Thrombosis/Pulmonary Embolism Present on Admission: No Contraindication to Pharmacological VTE Prophylaxis: High Risk of Bleeding
[2016-07-08] MEDS ORDERED: KETOROLAC 15 MG/1 ML VIAL ONE (06:36)
[2016-07-08] MEDS: KETOROLAC 15 MG/1 ML VIAL IV PRN ×3 (06:42→18:15)
--- NOTE | 2016-07-08 07:42 | EKG Report ---
Stationary ECG Study [facility] Test Date: 07/08/2016 7:12:06 AM Pat Name: IRVIN LUND Department: Room: 262 Gender: F Screener Operator: : [id number] Requested by: Armaan Prather Order Number: [id number] Reading MD: TAMIKO OLIVEROS Intervals [place] Rate: 61 P: 56 CA: 122 QRS: 45 QRSD: 114 T: 75 QT: 457 QTc: 459 Interpretive Statements SINUS RHYTHM MODERATE INTRAVENTRICULAR CONDUCTION DELAY Electronically Signed On 07-08-16 09:22:50 PATIENT ACCESS DIRECTOR by TAMIKO OLIVEROS [email or web address]
--- NOTE | 2016-07-08 08:08 | XRay Report ---
Referring Physician: Doe Correia Exam: XR chest 1V portable Date: July 08, 2016 at 5:41 AM Reason: Shortness of breath Comparison: Chest one view portable July 07, 2016 Findings: A left IJ catheter is present with its distal tip at the SVC/right atrial junction. The cardiac silhouette is again enlarged, and the patient is status post sternotomy. The interstitial markings are prominent bilaterally, and there are mild scattered opacities within both lower lung zones. This is concerning for pulmonary edema and atelectasis. Pneumonia is felt less likely but is not excluded. No pneumothorax is identified, but there is mild bilateral pleural fluid. The osseous structures appear stable. Impression: There is evidence of pulmonary edema, atelectasis and mild bilateral pleural fluid. The pleural fluid and atelectasis have slightly increased. PROCEDURE INTERPRETED AT [facility] DEPARTMENT OF RADIOLOGY Final Report Signed by: Dr. Lorne Salazar
[2016-07-08] MEDS: CAPTOPRIL 6.25 MG TABLET PO SCH ×2 (08:34→20:19)
[2016-07-08] MEDS: CARVEDILOL 3.125 MG TABLET PO SCH ×2 (08:35→20:20)
[2016-07-08] MEDS: ASPIRIN EC 325 MG TABLET PO SCH (08:35)
[2016-07-08] MEDS: FERROUS SULFATE 325 MG TABLET PO SCH (08:35)
[2016-07-08] MEDS: PANTOPRAZOLE 40 MG TABLET PO SCH (08:35)
[2016-07-08] MEDS: SPIRONOLACTONE 25 MG TABLET PO SCH (08:35)
[2016-07-08] MEDS: DOCUSATE SODIUM 100 MG CAPSULE PO SCH (08:35)
[2016-07-08] MEDS: CHLORHEXIDINE 0.12% ORAL RINSE 60 ML BOTTLE SWISH/SPIT SCH ×2 (08:38→20:20)
[2016-07-08] MEDS: SODIUM CHLOR 0.45% KCL 20 MEQ 20 MEQ/1,000 ML BAG IV SCH ×2 (08:39→08:41)
--- NOTE | 2016-07-08 08:42 | Cardiology Progress Note ---
<Mora Ulloa E - Last Filed: 07/08/16 08:57> Assessment and Plan - Time spent with patient Time spent with patient: Greater than 30 minutes (1) NSTEMI (non-ST elevated myocardial infarction) Status: Resolved Assessment and plan: Now revascularized. Continue current plan of care Current Visit: Yes (2) Abnormal stress test Status: Chronic Assessment and plan: Continue current plan of care. Current Visit: Yes (3) History of hyperlipidemia Status: Chronic Assessment and plan: Restart lipid-lowering agent. Current Visit: Yes (4) Nicotine dependence Status: Chronic Assessment and plan: Greater than 5 minutes was spent today discussing the merits of tobacco cessation Current Visit: Yes Qualifiers: Nicotine product type: cigarettes (5) CAD (coronary artery disease) Status: Chronic Current Visit: Yes Qualifiers: Coronary Disease-Associated Artery/Lesion type: [place] artery (6) S/P CABG x 2 Status: Chronic Assessment and plan: Continue current plan of care Current Visit: Yes (7) Carotid artery disease Status: Chronic Assessment and plan: Continue current plan of care Current Visit: Yes (8) Ischemic cardiomyopathy Status: Acute Current Visit: Yes (9) Mitral regurgitation Status: Acute Assessment and plan: Continue current plan of care Current Visit: Yes Cardiology - PN: Subj Interval history: Ms. Bradshaw, 56WF, previously followed by Dr. Melo 2013, was admitted through the ER [facility] Friday for chest pain. Risk factors include: Hypertension, family history of premature coronary artery disease, tobaccoism. 2013, patient underwent nuclear stress testing which was positive suggesting inferolateral ischemia. Patient preferred medical therapy and declined cardiac catheterization. She did not return for follow-up with Dr. Melo. After being evaluated in the emergency department Friday afternoon, her troponin revealed an elevation 1.8. She was having active chest discomfort that time. She was taken emergently to the cardiac catheterization lab where Dr. Prather performed heart catheterization. Identified was severe left main disease including an ostial stenosis 70%. EF 30% by LV gram, 2+ MR. IABP was placed, Dr. Correia was consulted for evaluation patient's candidacy for CABG. 07/06/2016 patient underwent CABG including JAEGER to LAD, SVG to OM. She tolerated the procedure well and was transferred to our telemetry unit yesterday. She is walking in her room to and from the bathroom without chest pain, heaviness or tightness. She is improving daily. Epicardial pacer wires intact. ASSESSMENT/PLAN: 1. CAD - 3VCAD, S/P CABG. She is tolerating aspirin, beta jelani, ROMIE inhibitor, Lasix and spironolactone without problems. We can add a low-dose lipid- lowering agent and monitor her LFTs. She had a minimally elevated direct bilirubin at one point but this is normalized. 2. S/P CABG - POD 2 JAEGER - LAD, SVG - OM. Continue current plan of care. Progressing nicely. 3. Hypertension - Well-controlled on betablocker and ROMIE 4.. Dyslipidemia - challenging with lose dose Atorvastatin this evening and monitoring LFTs daily. 5. ICM - EF 30% by LVGram. Will order echo this morning for baseline information. 6. Tobaccoism - Greater than 5 minutes was spent discussing the merits of tobacco cessation 7. NSTEMI - troponins decreasing. Now revascularized 8. MR - Echo ordered to further eval. 2+ per LV Gram 9. Carotid disease - 50-79% stenosis bilateral carotid arteries per carotid US July 03, 2016. Will need further work-up eventually. Exam (Progress Note) - Constitutional Vitals: Period Temp Pulse Resp BP Sys/Briones Pulse Ox Last 24 Hr 97.4 F-98.4 F 63-83 20-20 105-135/52-84 93-97 Exam: General: Appears well with no apparent distress. Pleasant and cooperative. Appears comfortable. HEENT: PERRL, normocephalic, atraumatic. Mucous membranes moist. No jaundice noted. Conjunctiva moist and clear, sclerae anicteric Neck: No JVD/HJR, no thyromegaly or lymphadenopathy noted. No carotid bruit appreciated Cardiac: Regular rate and rhythm. No murmur rub or gallop. Dressing to sternotomy intact. Lungs: Clear to auscultation without accessory muscle use to assist the respiratory pattern. Not requiring oxygen. Abdomen: Soft, bowel sounds normoactive. Nontender and nondistended. No abdominal bruit or thrill noted. No masses noted. Musculoskeletal: No fluid collection. Decreased range of motion is noted. Extremities: No clubbing, cyanosis noted. No edema noted. Upper extremity pulses 2+. Lower extremity pulses 2+. Capillary refill less than 3 seconds. Dressing to left lower extremity dry and intact. Skin: No unusual lesions or rashes. No skin breakdown appreciated. Neuro: Awake, alert and oriented 3. Moves all extremities well without hemiparesis or paralysis. No essential tremor is appreciated. Result/EKG - Labs CBC & BMP: 07/08/16 03:47 07/08/16 03:47 Labs: Laboratory Results - last 24 hr 07/06/16 07/06/16 07/06/16 13:55 17:18 18:14 WBC RBC Hgb Hct MCV MCH MCHC RDW Plt Count MPV Neut % (Auto) Lymph % (Auto) [place] % (Auto) Eos % (Auto) Baso % (Auto) Neut # (Auto) Lymph # (Auto) [place] # (Auto) Eos # (Auto) Baso # (Auto) Immature Gran % Nucleated RBC % Immature Gran # Nucleated RBCs # Sodium Potassium Chloride Carbon Dioxide Anion Gap BUN Creatinine GFR Calculation BUN/Creatinine Ratio Glucose POC Glucose 154 H 132 H 141 H Calculated Osmolality Calcium Magnesium Total Bilirubin Direct Bilirubin Indirect Bilirubin AST ALT Alkaline Phosphatase Total Creatine Kinase CK-MB (CK-2) Troponin I Total Protein Albumin Globulin Albumin/Globulin Ratio 07/06/16 07/06/16 07/06/16 19:51 21:23 22:23 WBC RBC Hgb Hct MCV MCH MCHC RDW Plt Count MPV Neut % (Auto) Lymph % (Auto) [place] % (Auto) Eos % (Auto) Baso % (Auto) Neut # (Auto) Lymph # (Auto) [place] # (Auto) Eos # (Auto) Baso # (Auto) Immature Gran % Nucleated RBC % Immature Gran # Nucleated RBCs # Sodium Potassium Chloride Carbon Dioxide Anion Gap BUN Creatinine GFR Calculation BUN/Creatinine Ratio Glucose POC Glucose 110 H 112 H 111 H Calculated Osmolality Calcium Magnesium Total Bilirubin Direct Bilirubin Indirect Bilirubin AST ALT Alkaline Phosphatase Total Creatine Kinase CK-MB (CK-2) Troponin I Total Protein Albumin Globulin Albumin/Globulin Ratio 07/07/16 07/07/16 07/07/16 05:25 08:54 12:41 WBC RBC Hgb Hct MCV MCH MCHC RDW Plt Count MPV Neut % (Auto) Lymph % (Auto) [place] % (Auto) Eos % (Auto) Baso % (Auto) Neut # (Auto) Lymph # (Auto) [place] # (Auto) Eos # (Auto) Baso # (Auto) Immature Gran % Nucleated RBC % Immature Gran # Nucleated RBCs # Sodium Potassium Chloride Carbon Dioxide Anion Gap BUN Creatinine GFR Calculation BUN/Creatinine Ratio Glucose POC Glucose 102 100 140 H Calculated Osmolality Calcium Magnesium Total Bilirubin Direct Bilirubin Indirect Bilirubin AST ALT Alkaline Phosphatase Total Creatine Kinase CK-MB (CK-2) Troponin I Total Protein Albumin Globulin Albumin/Globulin Ratio 07/07/16 07/07/16 07/08/16 15:40 19:41 03:47 WBC 12.1 RBC 3.54 L Hgb 10.5 L Hct 32.3 L MCV 91.2 MCH 30 MCHC 32.5 RDW 14.6 Plt Count 114 L D MPV 11.7 Neut % (Auto) 82.6 H Lymph % (Auto) 9.1 L [place] % (Auto) 7.7 Eos % (Auto) 0.1 Baso % (Auto) 0.0 Neut # (Auto) 10.0 H Lymph # (Auto) 1.1 L [place] # (Auto) 0.9 H Eos # (Auto) 0.0 Baso # (Auto) 0.0 Immature Gran % 0.5 Nucleated RBC % 0.0 Immature Gran # 0.06 Nucleated RBCs # 0.00 Sodium Potassium Chloride Carbon Dioxide Anion Gap BUN Creatinine GFR Calculation BUN/Creatinine Ratio Glucose POC Glucose 123 H 201 H Calculated Osmolality Calcium Magnesium Total Bilirubin Direct Bilirubin Indirect Bilirubin AST ALT Alkaline Phosphatase Total Creatine Kinase CK-MB (CK-2) Troponin I Total Protein Albumin Globulin Albumin/Globulin Ratio 07/08/16 07/08/16 03:47 07:29 WBC RBC Hgb Hct MCV MCH MCHC RDW Plt Count MPV Neut % (Auto) Lymph % (Auto) [place] % (Auto) Eos % (Auto) Baso % (Auto) Neut # (Auto) Lymph # (Auto) [place] # (Auto) Eos # (Auto) Baso # (Auto) Immature Gran % Nucleated RBC % Immature Gran # Nucleated RBCs # Sodium 144 Potassium 4.3 Chloride 106 Carbon Dioxide 29 Anion Gap 13.3 BUN 19 H Creatinine 0.80 GFR Calculation 79 BUN/Creatinine Ratio 23.00 H Glucose 113 H POC Glucose 130 H Calculated Osmolality 288.8 Calcium 8.1 L Magnesium 2.4 Total Bilirubin 0.50 Direct Bilirubin 0.2 Indirect Bilirubin 0.3 AST 17 ALT 16 Alkaline Phosphatase 62 Total Creatine Kinase 294 H CK-MB (CK-2) 4.9 H D Troponin I 1.740 H D Total Protein 5.4 L Albumin 3.2 L Globulin 2.2 L Albumin/Globulin Ratio 1.4 - Diagnostic Findings Procedure: Chest x-ray: report reviewed by me - EKG EKG results: interpreted by me EKG shows: sinus rhythm Quality Measures - VTE Deep Vein Thrombosis/Pulmonary Embolism Present on Admission: No Contraindication to Pharmacological VTE Prophylaxis: High Risk of Bleeding Specialty Discharge - Follow Up or Referrals <Deanna Hammond - Last Filed: 07/08/16 14:06> Cardiology - PN: Subj Interval history: I have personally interviewed and examined the patient, reviewed the chart and discussed medical decision-making with practitioner early. I have read her note and agree with the findings documented herein. Additionally, I will change her ROMIE inhibitor to lisinopril for easier compliance. Exam (Progress Note) - Constitutional Vitals: Period Temp Pulse Resp BP Sys/Briones Pulse Ox Last 24 Hr 97.4 F-98.4 F 63-83 20-20 105-135/54-84 93-97 Exam: There is a left internal jugular central catheter without surrounding erythema, calor or edema Result/EKG - Labs CBC & BMP: 07/08/16 03:47 07/08/16 03:47 Labs: Laboratory Results - last 24 hr 07/07/16 07/07/16 07/08/16 15:40 19:41 03:47 WBC 12.1 RBC 3.54 L Hgb 10.5 L Hct 32.3 L MCV 91.2 MCH 30 MCHC 32.5 RDW 14.6 Plt Count 114 L D MPV 11.7 Neut % (Auto) 82.6 H Lymph % (Auto) 9.1 L [place] % (Auto) 7.7 Eos % (Auto) 0.1 Baso % (Auto) 0.0 Neut # (Auto) 10.0 H Lymph # (Auto) 1.1 L [place] # (Auto) 0.9 H Eos # (Auto) 0.0 Baso # (Auto) 0.0 Immature Gran % 0.5 Nucleated RBC % 0.0 Immature Gran # 0.06 Nucleated RBCs # 0.00 Sodium Potassium Chloride Carbon Dioxide Anion Gap BUN Creatinine GFR Calculation BUN/Creatinine Ratio Glucose POC Glucose 123 H 201 H Calculated Osmolality Calcium Magnesium Total Bilirubin Direct Bilirubin Indirect Bilirubin AST ALT Alkaline Phosphatase Total Creatine Kinase CK-MB (CK-2) Troponin I Total Protein Albumin Globulin Albumin/Globulin Ratio 07/08/16 07/08/16 07/08/16 03:47 07:29 11:33 WBC RBC Hgb Hct MCV MCH MCHC RDW Plt Count MPV Neut % (Auto) Lymph % (Auto) [place] % (Auto) Eos % (Auto) Baso % (Auto) Neut # (Auto) Lymph # (Auto) [place] # (Auto) Eos # (Auto) Baso # (Auto) Immature Gran % Nucleated RBC % Immature Gran # Nucleated RBCs # Sodium 144 Potassium 4.3 Chloride 106 Carbon Dioxide 29 Anion Gap 13.3 BUN 19 H Creatinine 0.80 GFR Calculation 79 BUN/Creatinine Ratio 23.00 H Glucose 113 H POC Glucose 130 H 131 H Calculated Osmolality 288.8 Calcium 8.1 L Magnesium 2.4 Total Bilirubin 0.50 Direct Bilirubin 0.2 Indirect Bilirubin 0.3 AST 17 ALT 16 Alkaline Phosphatase 62 Total Creatine Kinase 294 H CK-MB (CK-2) 4.9 H D Troponin I 1.740 H D Total Protein 5.4 L Albumin 3.2 L Globulin 2.2 L Albumin/Globulin Ratio 1.4
--- NOTE | 2016-07-08 18:16 | ECHO Report ---
IRVIN LUND Exam Date: 07/08/2016 11:36 Referring Physician: Technologist: Age: 56 Ht (in): Wt (lb): Gender: F Exam Location: [facility] Echo Indications: Chest pain, unspecified, Non-ST elevation (NSTEMI) myocardial infarction, Acute stress test, Hyperlipidemia, unspecified, Nicotine dependence, unspecified, uncomplicated, Ischemic cardiomyopathy, hx MR, Essential (primary) hypertension, CAD, s/p CABG 07/06/16 BP: / HR: Rhythm: Sinus Technical Quality: Poor IMPRESSIONS Severely reduced LV systolic function with ejection fraction estimated at 25-30%. There is difficulty assessing regional wall motion-see discussion below. Grade 1/4 diastolic dysfunction. Moderately dilated left ventricle. Mildly dilated right ventricle. Mild left atrial enlargement. Mild to moderate mitral regurgitation. Mild tricuspid regurgitation. Trace pulmonic regurgitation. MEASUREMENTS (Male / Female) Normal Values 2D ECHO LV Diastolic Diameter PLAX 6.9 cm 4.2 - 5.9 / 3.9 - 5.3 cm LV Systolic Diameter PLAX 5.3 cm LV Fractional Shortening PLAX 23.5 % IVS Diastolic Thickness 0.9 cm 0.6 - 1.0 / 0.6 - 0.9 cm LVPW Diastolic Thickness 0.9 cm 0.6 - 1.0 / 0.6 - 0.9 cm RV Internal Dim ED PLAX 3.6 cm Aortic Root Diameter 3.4 cm LA Systolic Diameter LX 4.5 cm 3.0 - 4.0 / 2.7 - 3.8 cm DOPPLER TR Peak Velocity 308.0 cm/s TR Peak Gradient 37.9 mmHg FINDINGS Left Ventricle Moderately increased left ventricular cavity size. Normal left ventricular wall thickness. Severely reduced LV systolic function with ejection fraction estimated at 25-30%. It is difficult to assess regional wall motion due to poor endocardial resolution. There is abnormal septal motion consistent with coronary artery bypass surgery, also the posterior and inferior wall may be relatively more hypokinetic than the remainder of the myocardium. Right Ventricle The right ventricle is normal in size and function. Right Atrium Normal size. Left Atrium Mildly increased left atrial size. Mitral Valve Morphologically normal mitral valve. Mild to moderate mitral valve regurgitation. Aortic Valve Morphologically normal aortic valve without significant sclerosis or stenosis. There is no aortic regurgitation. Tricuspid Valve Morphologically normal tricuspid valve. Mild tricuspid valve regurgitation. Tricuspid regurgitation velocities suggest a PAP of 48 mmHg. Pulmonic Valve Morphologically normal pulmonic valve. Trace pulmonary valve regurgitation. Pericardium Normal pericardium without effusion. Aorta Normal ascending aorta dimension. Deanna Hammond MD (Electronically Signed) Final Date: 08 July 2016 18:15
[2016-07-08] MEDS: ATORVASTATIN 20 MG TABLET PO SCH (20:19)
[2016-07-08] MEDS ORDERED: ATORVASTATIN 40 MG TABLET PO SCH (21:00)
[2016-07-09] MEDS: KETOROLAC 15 MG/1 ML VIAL IV PRN ×4 (02:14→20:31)
[2016-07-09 04:48] LABS: Basophils % 0.2 % (0.0-0.8); Eosinophils # 0.1 10*3/uL (0.0-0.87); Eosinophils % 1.4 % (0.00-10.9); Hematocrit 35.2 VOL% (35.7-47.0); Hemoglobin 11.5 GM/DL (12.0-16.0); Immature Granulocytes % 0.6 %; Immature Granulocytes Absolute 0.06 #; Lymphocytes # 1.2 10*3/uL (1.4-4.0); Lymphocytes % 11.3 % (21.3-54.2); Mean Corpuscular HGB Conc 32.7 GM/DL (32-36); Mean Corpuscular Hemoglobin 30 PG (27-34); Mean Corpuscular Volume 92.1 FL (87-102); Mean Platelet Volume 11.1 FL (9.6-12.0); Monocytes # 0.8 10*3/uL (0.11-0.8); Monocytes % 7.7 % (1.7-12.7); Neutrophils # 8.1 10*3/uL (1.4-7.4); Neutrophils % 78.8 % (38.7-73.9); Platelet Count 134 10*3/uL (130-400); Red Blood Count 3.82 10*6/uL (3.8-5.5); Red Cell Distribution Width 14.1 % (9.3-17.3); White Blood Count 10.2 10*3/uL (4.5-13.71)
[2016-07-09 05:27] LABS: Alanine Aminotransferase 14 U/L (13-56); Albumin 3.1 G/DL (3.4-5.0); Alkaline Phosphatase 64 U/L (45-117); Aspartate Amino Transferase 12 U/L (0-37); Bilirubin,Direct 0.2 MG/DL (0.0-0.20); Bilirubin,Indirect 0.6 MG/DL (0.0-1.0); Blood Urea Nitrogen 15 MG/DL (7-18); Glucose 93 MG/DL (74-106); Magnesium 2.4 MG/DL (1.8-2.4); Osmolality,Calculated 288.7 MOS/KG (273-304); Potassium 3.9 MMOL/L (3.5-5.1); Sodium 145 MMOL/L (136-145); Total Protein 5.4 G/DL (6.4-8.3)
--- NOTE | 2016-07-09 07:00 | XRay Report ---
Portable chest. Indication: Shortness of breath. Comparison: July 08, 2016. The heart is enlarged. Post median sternotomy. The pulmonary vasculature is prominent but improved. The interstitial lung markings are prominent but improved. There is bilateral basilar atelectasis and pleural effusion, stable. Central venous catheter in satisfactory position. Impression: Congestive heart failure, interval improvement. PROCEDURE INTERPRETED AT [facility] DEPARTMENT OF RADIOLOGY Final Report Signed by: Dr. Fifi Connelly
--- NOTE | 2016-07-09 07:36 | Cardiothoracic Progress Note ---
Cardiothoracic Subjective Interval history: Patient is postop day 3 following urgent coronary bypass surgery. She is recovering well and other than soreness has no major complaints. Her vital signs have been stable and she is breathing comfortably and her chest x-ray appears satisfactory. We are going to gradually increase her activities as tolerated today. Exam (Progress Note) - Constitutional Vitals: Period Temp Pulse Resp BP Sys/Briones Pulse Ox Last 24 Hr 97.4 F-99.2 F 70-83 18-22 124-135/54-84 94-97 Result/EKG - Labs CBC & BMP: 07/09/16 03:42 07/09/16 03:42 Labs: Laboratory Results - last 24 hr 07/08/16 07/08/16 07/08/16 07:29 11:33 15:46 WBC RBC Hgb Hct MCV MCH MCHC RDW Plt Count MPV Neut % (Auto) Lymph % (Auto) [place] % (Auto) Eos % (Auto) Baso % (Auto) Neut # (Auto) Lymph # (Auto) [place] # (Auto) Eos # (Auto) Baso # (Auto) Immature Gran % Nucleated RBC % Immature Gran # Nucleated RBCs # Sodium Potassium Chloride Carbon Dioxide Anion Gap BUN Creatinine GFR Calculation BUN/Creatinine Ratio Glucose POC Glucose 130 H 131 H 119 H Calculated Osmolality Calcium Magnesium Total Bilirubin Direct Bilirubin Indirect Bilirubin AST ALT Alkaline Phosphatase Total Creatine Kinase CK-MB (CK-2) Troponin I Total Protein Albumin Globulin Albumin/Globulin Ratio 07/08/16 07/09/16 07/09/16 20:21 03:42 03:42 WBC 10.2 RBC 3.82 Hgb 11.5 L Hct 35.2 L MCV 92.1 MCH 30 MCHC 32.7 RDW 14.1 Plt Count 134 MPV 11.1 Neut % (Auto) 78.8 H Lymph % (Auto) 11.3 L [place] % (Auto) 7.7 Eos % (Auto) 1.4 Baso % (Auto) 0.2 Neut # (Auto) 8.1 H Lymph # (Auto) 1.2 L [place] # (Auto) 0.8 Eos # (Auto) 0.1 Baso # (Auto) 0.0 Immature Gran % 0.6 Nucleated RBC % 0.0 Immature Gran # 0.06 Nucleated RBCs # 0.00 Sodium 145 Potassium 3.9 Chloride 104 Carbon Dioxide 31 Anion Gap 13.9 BUN 15 Creatinine 0.70 GFR Calculation 93 BUN/Creatinine Ratio 21.00 H Glucose 93 POC Glucose 137 H Calculated Osmolality 288.7 Calcium 8.0 L Magnesium 2.4 Total Bilirubin 0.80 Direct Bilirubin 0.2 Indirect Bilirubin 0.6 AST 12 ALT 14 Alkaline Phosphatase 64 Total Creatine Kinase 177 D CK-MB (CK-2) 1.6 Troponin I 1.170 H D Total Protein 5.4 L Albumin 3.1 L Globulin 2.3 Albumin/Globulin Ratio 1.3 Quality Measures - VTE Deep Vein Thrombosis/Pulmonary Embolism Present on Admission: No Contraindication to Pharmacological VTE Prophylaxis: High Risk of Bleeding Specialty Discharge - Follow Up or Referrals
[2016-07-09] MEDS: DOCUSATE SODIUM 100 MG CAPSULE PO SCH (08:22)
[2016-07-09] MEDS: ASPIRIN EC 325 MG TABLET PO SCH (08:22)
[2016-07-09] MEDS: CAPTOPRIL 6.25 MG TABLET PO SCH (08:22)
[2016-07-09] MEDS: CARVEDILOL 3.125 MG TABLET PO SCH ×2 (08:22→20:30)
[2016-07-09] MEDS: FUROSEMIDE 20 MG TABLET PO SCH (08:22)
[2016-07-09] MEDS: SPIRONOLACTONE 25 MG TABLET PO SCH (08:23)
[2016-07-09] MEDS: PANTOPRAZOLE 40 MG TABLET PO SCH (08:23)
[2016-07-09] MEDS: FERROUS SULFATE 325 MG TABLET PO SCH (08:23)
[2016-07-09] MEDS: CHLORHEXIDINE 0.12% ORAL RINSE 60 ML BOTTLE SWISH/SPIT SCH ×2 (08:26→20:32)
[2016-07-09] MEDS: oxyCODONE/ACETAMINOPHEN 5-325 MG TABLET PO PRN ×3 (10:06→20:30)
--- NOTE | 2016-07-09 12:03 | Cardiology Progress Note ---
<Mora Ulloa E - Last Filed: 07/09/16 12:06> Assessment and Plan - Time spent with patient Time spent with patient: Greater than 30 minutes (1) NSTEMI (non-ST elevated myocardial infarction) Status: Resolved Assessment and plan: Now revascularized. Continue current plan of care Current Visit: Yes (2) Abnormal stress test Status: Chronic Assessment and plan: Continue current plan of care. Current Visit: Yes (3) History of hyperlipidemia Status: Chronic Assessment and plan: Tolerating lipid-lowering agent. Current Visit: Yes (4) Nicotine dependence Status: Chronic Assessment and plan: Greater than 5 minutes was spent today discussing the merits of tobacco cessation Current Visit: Yes Qualifiers: Nicotine product type: cigarettes (5) CAD (coronary artery disease) Status: Chronic Assessment and plan: Three-vessel CAD now status post CABG. Current Visit: Yes Qualifiers: Coronary Disease-Associated Artery/Lesion type: [place] artery (6) S/P CABG x 2 Status: Chronic Assessment and plan: Continue current plan of care Current Visit: Yes (7) Carotid artery disease Status: Chronic Assessment and plan: Continue current plan of care Current Visit: Yes (8) Ischemic cardiomyopathy Status: Acute Assessment and plan: EF 25-30%. Continue current plan of care Current Visit: Yes (9) Mitral regurgitation Status: Acute Assessment and plan: Mild to moderate MR per echo. Continue current plan of care Current Visit: Yes Cardiology - PN: Subj Interval history: Interval history: Ms. Bradshaw, 56WF, previously followed by Dr. Melo 2013, was admitted through the ER PSYCH[facility] Friday for chest pain. Risk factors include: Hypertension, family history of premature coronary artery disease, tobaccoism. 2013, patient underwent nuclear stress testing which was positive suggesting inferolateral ischemia. Patient preferred medical therapy and declined cardiac catheterization. She did not return for follow-up with Dr. Melo. After being evaluated in the emergency department Friday afternoon, her troponin revealed an elevation at 1.8. She was having active chest discomfort at that time. She was taken emergently to the cardiac catheterization lab where Dr. Prather performed heart catheterization. Identified was severe left main disease including an ostial stenosis 70%. EF 30% by LV gram, 2+ MR. IABP was placed, Dr. Correia was consulted for evaluation patient's candidacy for CABG. 07/06/2016 patient underwent CABG including JAEGER to LAD, SVG to OM. She tolerated the procedure well and was transferred to our telemetry unit yesterday. She is currently postop day 3, ambulating in room and improving. She denies chest pain other than soreness. Her breathing is nonlabored. She is thankful and appreciative of the care she is getting. Suspect she may be discharged home tomorrow. ASSESSMENT/PLAN: 1. CAD - 3VCAD, S/P CABG. She is tolerating aspirin, beta jelani, ROMIE inhibitor, Lasix and spironolactone without problems. Yesterday, low-dose lipid - lowering agent was added. LFTs are stable this morning. 2. S/P CABG - POD 2 JAEGER - LAD, SVG - OM. Continue current plan of care. Progressing nicely. 3. Hypertension - Well-controlled on betablocker and ROMIE inhibitory. 4.. Dyslipidemia - lipid-lowering agent has been initiated and she is tolerating without problems. 5. ICM - EF 25-30%. Continue current plan of care. 6. Tobaccoism - Greater than 5 minutes was spent discussing the merits of tobacco cessation 7. NSTEMI - troponins decreasing. Now revascularized 8. MR - Echo ordered to further eval. 2+ per LV Gram 9. Carotid disease - 50-79% stenosis bilateral carotid arteries per carotid US July 03, 2016. Will need further work-up eventually. Exam (Progress Note) - Constitutional Vitals: Period Temp Pulse Resp BP Sys/Briones Pulse Ox Last 24 Hr 97.8 F-99.2 F 70-83 18-22 107-132/49-65 94-97 Exam: General: Appears well with no apparent distress. Pleasant and cooperative. Appears comfortable. HEENT: PERRL, normocephalic, atraumatic. Mucous membranes moist. No jaundice noted. Conjunctiva moist and clear, sclerae anicteric Neck: No JVD/HJR, no thyromegaly or lymphadenopathy noted. No carotid bruit appreciated Cardiac: Regular rate and rhythm. No murmur rub or gallop. Dressing to sternotomy intact. Lungs: Clear to auscultation without accessory muscle use to assist the respiratory pattern. Not requiring oxygen. Abdomen: Soft, bowel sounds normoactive. Nontender and nondistended. No abdominal bruit or thrill noted. No masses noted. Musculoskeletal: No fluid collection. Decreased range of motion is noted. Extremities: No clubbing, cyanosis noted. No edema noted. Upper extremity pulses 2+. Lower extremity pulses 2+. Capillary refill less than 3 seconds. Dressing to left lower extremity dry and intact. Skin: No unusual lesions or rashes. No skin breakdown appreciated. Neuro: Awake, alert and oriented 3. Moves all extremities well without hemiparesis or paralysis. No essential tremor is appreciated. Result/EKG - Labs CBC & BMP: 07/09/16 03:42 07/09/16 03:42 Lab Results: I have reviewed the past 24 hour labs Labs: Laboratory Results - last 24 hr 07/08/16 07/08/16 07/09/16 15:46 20:21 03:42 WBC 10.2 RBC 3.82 Hgb 11.5 L Hct 35.2 L MCV 92.1 MCH 30 MCHC 32.7 RDW 14.1 Plt Count 134 MPV 11.1 Neut % (Auto) 78.8 H Lymph % (Auto) 11.3 L [place] % (Auto) 7.7 Eos % (Auto) 1.4 Baso % (Auto) 0.2 Neut # (Auto) 8.1 H Lymph # (Auto) 1.2 L [place] # (Auto) 0.8 Eos # (Auto) 0.1 Baso # (Auto) 0.0 Immature Gran % 0.6 Nucleated RBC % 0.0 Immature Gran # 0.06 Nucleated RBCs # 0.00 Sodium Potassium Chloride Carbon Dioxide Anion Gap BUN Creatinine GFR Calculation BUN/Creatinine Ratio Glucose POC Glucose 119 H 137 H Calculated Osmolality Calcium Magnesium Total Bilirubin Direct Bilirubin Indirect Bilirubin AST ALT Alkaline Phosphatase Total Creatine Kinase CK-MB (CK-2) Troponin I Total Protein Albumin Globulin Albumin/Globulin Ratio 07/09/16 07/09/16 07/09/16 03:42 07:31 11:11 WBC RBC Hgb Hct MCV MCH MCHC RDW Plt Count MPV Neut % (Auto) Lymph % (Auto) [place] % (Auto) Eos % (Auto) Baso % (Auto) Neut # (Auto) Lymph # (Auto) [place] # (Auto) Eos # (Auto) Baso # (Auto) Immature Gran % Nucleated RBC % Immature Gran # Nucleated RBCs # Sodium 145 Potassium 3.9 Chloride 104 Carbon Dioxide 31 Anion Gap 13.9 BUN 15 Creatinine 0.70 GFR Calculation 93 BUN/Creatinine Ratio 21.00 H Glucose 93 POC Glucose 94 106 Calculated Osmolality 288.7 Calcium 8.0 L Magnesium 2.4 Total Bilirubin 0.80 Direct Bilirubin 0.2 Indirect Bilirubin 0.6 AST 12 ALT 14 Alkaline Phosphatase 64 Total Creatine Kinase 177 D CK-MB (CK-2) 1.6 Troponin I 1.170 H D Total Protein 5.4 L Albumin 3.1 L Globulin 2.3 Albumin/Globulin Ratio 1.3 - EKG EKG results: interpreted by me EKG shows: sinus rhythm Quality Measures - VTE Deep Vein Thrombosis/Pulmonary Embolism Present on Admission: No Contraindication to Pharmacological VTE Prophylaxis: High Risk of Bleeding Specialty Discharge - Follow Up or Referrals <Deanna Hammond - Last Filed: 07/09/16 19:45> Cardiology - PN: Subj Interval history: I personally interviewed and evaluated the patient, reviewed the chart and discussed medical decision-making with practitioner Artemio. I have read her note and agree with its findings and her plan of care. Exam (Progress Note) - Constitutional Vitals: Period Temp Pulse Resp BP Sys/Briones Pulse Ox Last 24 Hr 97.3 F-99.2 F 70-81 18-20 107-132/49-60 94-97 Result/EKG - Labs CBC & BMP: 07/09/16 03:42 07/09/16 03:42 Labs: Laboratory Results - last 24 hr 07/08/16 07/09/16 07/09/16 20:21 03:42 03:42 WBC 10.2 RBC 3.82 Hgb 11.5 L Hct 35.2 L MCV 92.1 MCH 30 MCHC 32.7 RDW 14.1 Plt Count 134 MPV 11.1 Neut % (Auto) 78.8 H Lymph % (Auto) 11.3 L [place] % (Auto) 7.7 Eos % (Auto) 1.4 Baso % (Auto) 0.2 Neut # (Auto) 8.1 H Lymph # (Auto) 1.2 L [place] # (Auto) 0.8 Eos # (Auto) 0.1 Baso # (Auto) 0.0 Immature Gran % 0.6 Nucleated RBC % 0.0 Immature Gran # 0.06 Nucleated RBCs # 0.00 Sodium 145 Potassium 3.9 Chloride 104 Carbon Dioxide 31 Anion Gap 13.9 BUN 15 Creatinine 0.70 GFR Calculation 93 BUN/Creatinine Ratio 21.00 H Glucose 93 POC Glucose 137 H Calculated Osmolality 288.7 Calcium 8.0 L Magnesium 2.4 Total Bilirubin 0.80 Direct Bilirubin 0.2 Indirect Bilirubin 0.6 AST 12 ALT 14 Alkaline Phosphatase 64 Total Creatine Kinase 177 D CK-MB (CK-2) 1.6 Troponin I 1.170 H D Total Protein 5.4 L Albumin 3.1 L Globulin 2.3 Albumin/Globulin Ratio 1.3 07/09/16 07/09/16 07/09/16 07:31 11:11 15:52 WBC RBC Hgb Hct MCV MCH MCHC RDW Plt Count MPV Neut % (Auto) Lymph % (Auto) [place] % (Auto) Eos % (Auto) Baso % (Auto) Neut # (Auto) Lymph # (Auto) [place] # (Auto) Eos # (Auto) Baso # (Auto) Immature Gran % Nucleated RBC % Immature Gran # Nucleated RBCs # Sodium Potassium Chloride Carbon Dioxide Anion Gap BUN Creatinine GFR Calculation BUN/Creatinine Ratio Glucose POC Glucose 94 106 96 Calculated Osmolality Calcium Magnesium Total Bilirubin Direct Bilirubin Indirect Bilirubin AST ALT Alkaline Phosphatase Total Creatine Kinase CK-MB (CK-2) Troponin I Total Protein Albumin Globulin Albumin/Globulin Ratio
[2016-07-09] MEDS: ATORVASTATIN 20 MG TABLET PO SCH (20:30)
--- NOTE | 2016-07-10 06:36 | Cardiothoracic Progress Note ---
Cardiothoracic Subjective Interval history: Patient looks and feels better. She is beginning to ambulate more easily. Her vital signs have been stable and she is breathing comfortably. We will try her off her supplemental oxygen today and hopefully she will be ready for discharge before long. Exam (Progress Note) - Constitutional Vitals: Period Temp Pulse Resp BP Sys/Briones Pulse Ox Last 24 Hr 96.8 F-98.6 F 73-81 16-22 105-132/49-62 94-97 Result/EKG - Labs CBC & BMP: 07/09/16 03:42 07/09/16 03:42 Labs: Laboratory Results - last 24 hr 07/08/16 07/09/16 07/09/16 20:21 07:31 11:11 POC Glucose 137 H 94 106 07/09/16 07/09/16 15:52 19:54 POC Glucose 96 143 H Quality Measures - VTE Deep Vein Thrombosis/Pulmonary Embolism Present on Admission: No Contraindication to Pharmacological VTE Prophylaxis: High Risk of Bleeding Specialty Discharge - Follow Up or Referrals
[2016-07-10] MEDS: KETOROLAC 15 MG/1 ML VIAL IV PRN ×3 (07:50→22:09)
[2016-07-10] MEDS: LISINOPRIL 5 MG TABLET PO SCH (08:26)
[2016-07-10] MEDS: PANTOPRAZOLE 40 MG TABLET PO SCH (08:26)
[2016-07-10] MEDS: DOCUSATE SODIUM 100 MG CAPSULE PO SCH (08:26)
[2016-07-10] MEDS: FERROUS SULFATE 325 MG TABLET PO SCH (08:26)
[2016-07-10] MEDS: FUROSEMIDE 20 MG TABLET PO SCH (08:27)
[2016-07-10] MEDS: CARVEDILOL 3.125 MG TABLET PO SCH ×2 (08:27→21:35)
[2016-07-10] MEDS: SPIRONOLACTONE 25 MG TABLET PO SCH (08:27)
[2016-07-10] MEDS: ASPIRIN EC 325 MG TABLET PO SCH (08:27)
[2016-07-10] MEDS: CHLORHEXIDINE 0.12% ORAL RINSE 60 ML BOTTLE SWISH/SPIT SCH ×2 (08:28→21:37)
[2016-07-10] MEDS: oxyCODONE/ACETAMINOPHEN 5-325 MG TABLET PO PRN ×3 (09:03→17:24)
--- NOTE | 2016-07-10 14:43 | Hospitalist Consult Note ---
Assessment and Plan - Time spent with patient Time spent with patient: Greater than 30 minutes (due to assessment, plan and documentation.) (1) NSTEMI (non-ST elevated myocardial infarction) Status: Resolved Assessment and plan: cardiology and cardiothoracic surgery is following s/p cabg we will continue to monitor her BP, glucoses and bowels throughout her hospitalization. Current Visit: Yes (2) ACS (acute coronary syndrome) Status: Acute Current Visit: Yes (3) Bilateral carotid artery disease Status: Acute Current Visit: Yes (4) Ischemic cardiomyopathy Status: Acute Current Visit: Yes (5) Mitral regurgitation Status: Acute Current Visit: Yes (6) Smoker Status: Acute Current Visit: Yes (7) Status post coronary artery bypass grafting Status: Acute Current Visit: Yes (8) Carotid artery disease Status: Chronic Current Visit: Yes (9) History of hyperlipidemia Status: Chronic Current Visit: Yes (10) Nicotine dependence Status: Chronic Current Visit: Yes Qualifiers: Nicotine product type: cigarettes History of Present Illness - Data of Consult Patient: new to practice (t) Consult date: 07/10/16 Requesting Physician: Doe Croreia - Consult Narrative Reason for consult: Medical Mgmt History of present illness: Ms. Bradshaw is a 56 year old female who we were asked to see in consultation for medical management. She is s/p CABG with Dr. Correia on 07/06. She has done well post operatively. She states that she is not diabetic and is not on any blood pressure medications prior to being admitted to the hospital. Her sugars have been 90-113 and her BP has been very well controlled. She does have high cholesterol and is on medications for that. She is having some pain, but states that it is mostly in her back where she has been told that she has degenerative joint disease. She is getting Toradol q6hrs, and Percocet q4hrs prn for pain. She does smoke, but states that she will no longer be smoking after discharge. Incisions look great and lungs are clear. She does have hypoactive bowel sounds and was given MOM earlier today. She has had one small BM yesterday. We will continue to monitor her glucoses, BP and bowels. Further plan and addendum to follow by Dr. Arlet Beauchamp. CC: Armaan Prather MD - Home Medications and Allergies Home Medications: Home Medications Medication Instructions Recorded Confirmed Type Gabapentin 300 mg PO BID 07/05/16 07/05/16 History Nitroglycerin Sl Tab [Nitrostat] 0.4 mg PO Q5M PRN 07/05/16 07/05/16 History amLODIPine [Norvasc] 10 mg PO DAILY 07/05/16 07/05/16 History predniSONE TAB [PredniSONE] See Taper PO DAILY 07/05/16 07/05/16 History Oxycodone HCl/Acetaminophen 1 tablet PO DAILY PRN 07/07/16 07/07/16 History [Oxycodone-Acetaminophen 10-325] Allergies/Adverse Reactions: Allergies Allergy/AdvReac Type Severity Reaction Status Date / Time Erythromycin Base Allergy RASH Verified 07/05/16 14:08 latex Allergy RASH Verified 07/05/16 14:08 Seafood Allergy Verified 07/06/16 09:02 Medical,Surgical,& Family Hx - Medical History Cardio: History of: Hypertension No history of: CO Endocrine: History of: Dyslipidemia Respiratory: History of: Bronchitis Gastrointestinal: History of: GI Problems (colon cancer 2008) Musculoskeletal: History of: Back/Neck Problems Other: History of: Cancer (colon) - Surgical History Abdominal Surgeries: Surgical HX of: Colonoscopy Reproductive Surgeries: Surgical HX of;: Hysterectomy - Family History Family History: Reports;: Family Cancer (dad (colon)), Family Diabetes (mother, sister), Family Heart Disease (mother, sister, brother x 3), Family Stroke ( maternal grandmother and grandfather) - Social History Smoking Status: Current every day smoker Frequency of Alcohol Use: None Type of Drug Use: None Marital Status: Lives With:: Alone Functional capacity: independent ambulation - Constitutional Constitutional: Absent: chills, fatigue, fever(s) - EENT Eyes: Absent: blurry vision, diplopia Ears: Absent: decreased hearing, tinnitus Nose, mouth and throat: Absent: dysphagia, headache(s) - Cardiovascular Cardiovascular: Absent: chest pain at rest, dyspnea on exertion - Respiratory Respiratory: Absent: cough, hemoptysis - Gastrointestinal Gastrointestinal: Absent: abdominal pain, melena, nausea, vomiting - Genitourinary Genitourinary: Absent: difficulty urinating, dysuria - Musculoskeletal Musculoskeletal: Present: back pain. Absent: joint swelling - Neurological Neurological: Absent: confusion, dizziness - Psychiatric Psychiatric: Absent: anxiety, confusion, depression - Endocrine Endocrine: Absent: cold intolerance, heat intolerance - Hematologic/Lymphatic Hematologic/Lymphatic: Absent: easy bleeding, easy bruising Exam - Constitutional Vitals: Period Temp Pulse Resp BP Sys/Briones Pulse Ox Last 24 Hr 96.8 F-98.6 F 73-83 16-22 105-135/50-68 90-97 General appearance: normal weight, no acute distress - Head Head exam: Present: normal inspection, normocephalic - Eye Eye exam: Present: EOMI. Absent: scleral icterus Pupils: Present: CINTHIA, normal accommodation - ENT ENT exam: Present: normal exam, normal oropharynx - Neck Neck exam: Present: normal inspection. Absent: lymphadenopathy - Respiratory Respiratory exam: Present: clear to auscultation bilaterally. Absent: accessory muscle use - Cardiovascular Cardiovascular exam: Present: regular rate and rhythm. Absent: carotid bruit - GI/Abdominal GI/Abdominal exam: Present: hypoactive bowel sounds, soft. Absent: tenderness - Extremities Exam Extremities exam: Present: normal inspection, other (incision from vein harvast to left inner lower extremity). Absent: edema - Back Exam Back exam: Present: normal inspection. Absent: muscle spasm - Neurological Exam Neurological exam: Present: alert, oriented X3 - Psychiatric Psychiatric exam: Present: normal affect, normal mood - Skin Skin exam: Present: warm, dry, other (midline sternal incision and left lower extremity incision s/p cabg and vein harvast. Healing well. ) Results - Labs CBC & BMP: 07/09/16 03:42 07/09/16 03:42 Lab Results: I have reviewed the past 24 hour labs Quality Measures - VTE Deep Vein Thrombosis/Pulmonary Embolism Present on Admission: No Contraindication to Pharmacological VTE Prophylaxis: High Risk of Bleeding Specialty Discharge - Follow Up or Referrals
--- NOTE | 2016-07-10 15:13 | Cardiology Progress Note ---
Assessment and Plan (1) NSTEMI (non-ST elevated myocardial infarction) Status: Resolved Current Visit: Yes (2) Bilateral carotid artery disease Status: Acute Assessment and plan: This will need to be evaluated with CT angiogram of the bilateral carotid arteries after she recovers from her recent surgery. This can be done as an outpatient. Current Visit: Yes (3) Status post coronary artery bypass grafting Status: Acute Assessment and plan: She is recovering well postoperatively. I anticipate she will be discharged home soon. Current Visit: Yes (4) Ischemic cardiomyopathy Status: Chronic Assessment and plan: No volume overloaded on exam. Current Visit: Yes (5) Mitral regurgitation Status: Chronic Current Visit: Yes Cardiology - PN: Subj Interval history: Evening was uneventful. She denies any chest pain. Breathing is improving. She is ambulating one fourth to the on echo somewhat problematic for her right now because she has been in the bed. She is trying to ambulate more. Oxygen was stopped and she is breathing well. Exam (Progress Note) - Constitutional Vitals: Period Temp Pulse Resp BP Sys/Briones Pulse Ox Last 24 Hr 96.8 F-98.6 F 73-83 16-22 105-135/50-68 90-97 Exam: General appearance: normal weight, no acute distress - Head Head exam: Present: normal inspection, normocephalic, atraumatic. Absent: hematoma, laceration - Eye Eye exam: Present: EOMI. Absent: conjunctival injection, nystagmus, periorbital swelling, scleral icterus, laceration to eyelids Pupils: Present: PERRL. Absent: constricted, dilated, fixed, irregular, unequal - ENT ENT exam: Present: normal exam, normal external ear exam - Neck Neck exam: Present: Left internal jugular catheter in place, no surrounding erythema or calor. Absent: lymphadenopathy, meningismus, tenderness, thyromegaly - Respiratory Respiratory exam: Present: clear to auscultation bilaterally. Absent: accessory muscle use, chest wall tenderness - Cardiovascular Cardiovascular exam: Present: regular rate and rhythm. Absent: carotid bruit, gallop, JVD, rubs - GI/Abdominal GI/Abdominal exam: Present: normal bowel sounds, soft. Absent: distended, firm , guarding, hernia, mass, tenderness, rebound. - Extremities Exam Extremities exam: Present: Vein harvest site with wound edges well approximated , and is running erythema, calor. Normal capillary refill. Absent: calf tenderness, edema - Back Exam Back exam: Present: normal inspection. Absent: muscle spasm, vertebral tenderness - Neurological Exam Neurological exam: Present: alert, oriented X3, grossly intact without resting or intention tremor - Psychiatric Psychiatric exam: Present: normal affect, normal mood - Skin Skin exam: Present: normal color, warm, dry, intact. Absent: cyanosis, diaphoretic, rash, urticaria Sternal wound with edges well approximated, no sign of infection. Result/EKG - Labs CBC & BMP: 07/09/16 03:42 07/09/16 03:42 Lab Results: I have reviewed the past 24 hour labs Labs: Laboratory Results - last 24 hr 07/09/16 07/09/16 07/10/16 15:52 19:54 07:23 POC Glucose 96 143 H 113 H 07/10/16 11:31 POC Glucose 133 H Quality Measures - VTE Deep Vein Thrombosis/Pulmonary Embolism Present on Admission: No Contraindication to Pharmacological VTE Prophylaxis: High Risk of Bleeding Specialty Discharge - Follow Up or Referrals
[2016-07-10] MEDS: ATORVASTATIN 20 MG TABLET PO SCH (21:35)
[2016-07-11] MEDS: KETOROLAC 15 MG/1 ML VIAL IV PRN (04:03)
[2016-07-11 05:10] LABS: Basophils % 0.2 % (0.0-0.8); Eosinophils # 0.4 10*3/uL (0.0-0.87); Eosinophils % 4.4 % (0.00-10.9); Hematocrit 35.2 VOL% (35.7-47.0); Hemoglobin 11.3 GM/DL (12.0-16.0); Immature Granulocytes % 0.5 %; Immature Granulocytes Absolute 0.05 #; Lymphocytes # 1.2 10*3/uL (1.4-4.0); Lymphocytes % 12.3 % (21.3-54.2); Mean Corpuscular HGB Conc 32.1 GM/DL (32-36); Mean Corpuscular Hemoglobin 30 PG (27-34); Mean Corpuscular Volume 92.9 FL (87-102); Mean Platelet Volume 11.1 FL (9.6-12.0); Monocytes # 0.7 10*3/uL (0.11-0.8); Monocytes % 7.6 % (1.7-12.7); Neutrophils # 7.4 10*3/uL (1.4-7.4); Platelet Count 192 10*3/uL (130-400); Red Blood Count 3.79 10*6/uL (3.8-5.5); Red Cell Distribution Width 13.9 % (9.3-17.3); White Blood Count 9.8 10*3/uL (4.5-13.71)
[2016-07-11 05:54] LABS: Alanine Aminotransferase 11 U/L (13-56); Albumin 2.7 G/DL (3.4-5.0); Alkaline Phosphatase 63 U/L (45-117); Aspartate Amino Transferase 8 U/L (0-37); Bilirubin,Direct 0.1 MG/DL (0.0-0.20); Bilirubin,Indirect 0.3 MG/DL (0.0-1.0); Blood Urea Nitrogen 14 MG/DL (7-18); Calcium 7.9 MG/DL (8.5-10.1); Glucose 94 MG/DL (74-106); Magnesium 2.7 MG/DL (1.8-2.4); Osmolality,Calculated 281.3 MOS/KG (273-304); Potassium 4.2 MMOL/L (3.5-5.1); Sodium 141 MMOL/L (136-145); Total Protein 5.2 G/DL (6.4-8.3)
[2016-07-11 06:03] LABS: Troponin I Only 0.674 NG/ML (0.00-0.045)
--- NOTE | 2016-07-11 07:05 | Cardiothoracic Progress Note ---
Cardiothoracic Subjective Interval history: Patient feels better today. Less soreness. Vital signs are stable and she is breathing comfortably. We will increase her activity and hopefully she will be ready for discharge in 1-2 days. Exam (Progress Note) - Constitutional Vitals: Period Temp Pulse Resp BP Sys/Briones Pulse Ox Last 24 Hr 97.4 F-98.4 F 74-83 18-20 83-135/47-68 90-93 Result/EKG - Labs CBC & BMP: 07/11/16 04:00 07/11/16 03:46 Labs: Laboratory Results - last 24 hr 07/10/16 07/10/16 07/10/16 07:23 11:31 15:48 WBC RBC Hgb Hct MCV MCH MCHC RDW Plt Count MPV Neut % (Auto) Lymph % (Auto) [place] % (Auto) Eos % (Auto) Baso % (Auto) Neut # (Auto) Lymph # (Auto) [place] # (Auto) Eos # (Auto) Baso # (Auto) Immature Gran % Nucleated RBC % Immature Gran # Nucleated RBCs # Sodium Potassium Chloride Carbon Dioxide Anion Gap BUN Creatinine GFR Calculation BUN/Creatinine Ratio Glucose POC Glucose 113 H 133 H 139 H Calculated Osmolality Calcium Magnesium Total Bilirubin Direct Bilirubin Indirect Bilirubin AST ALT Alkaline Phosphatase Total Creatine Kinase CK-MB (CK-2) Troponin I Total Protein Albumin Globulin Albumin/Globulin Ratio 07/10/16 07/11/16 07/11/16 19:25 03:46 04:00 WBC 9.8 RBC 3.79 L Hgb 11.3 L Hct 35.2 L MCV 92.9 MCH 30 MCHC 32.1 RDW 13.9 Plt Count 192 D MPV 11.1 Neut % (Auto) 75.0 H Lymph % (Auto) 12.3 L [place] % (Auto) 7.6 Eos % (Auto) 4.4 Baso % (Auto) 0.2 Neut # (Auto) 7.4 Lymph # (Auto) 1.2 L [place] # (Auto) 0.7 Eos # (Auto) 0.4 Baso # (Auto) 0.0 Immature Gran % 0.5 Nucleated RBC % 0.0 Immature Gran # 0.05 Nucleated RBCs # 0.00 Sodium 141 Potassium 4.2 Chloride 99 Carbon Dioxide 34 H Anion Gap 12.2 BUN 14 Creatinine 0.80 GFR Calculation 78 BUN/Creatinine Ratio 17.00 Glucose 94 POC Glucose 129 H Calculated Osmolality 281.3 Calcium 7.9 L Magnesium 2.7 H Total Bilirubin 0.40 Direct Bilirubin 0.1 Indirect Bilirubin 0.3 AST 8 ALT 11 L Alkaline Phosphatase 63 Total Creatine Kinase 76 D CK-MB (CK-2) < 1.0 Troponin I 0.674 H D Total Protein 5.2 L Albumin 2.7 L Globulin 2.5 Albumin/Globulin Ratio 1.0 L Quality Measures - VTE Deep Vein Thrombosis/Pulmonary Embolism Present on Admission: No Contraindication to Pharmacological VTE Prophylaxis: High Risk of Bleeding Specialty Discharge - Follow Up or Referrals
--- NOTE | 2016-07-11 08:20 | XRay Report ---
History a short of breath Chest, 2 views Comparison 07/09/2016 The heart is enlarged. There has been improvement of prior vascular congestion and diffuse edema. Mild bilateral interstitial edema and small effusions remain. Mildly more confluent atelectasis in the retrocardiac left base remains. Impression: Interval improvement with mild continued pulmonary edema PROCEDURE INTERPRETED AT [facility] DEPARTMENT OF RADIOLOGY Final Report Signed by: Dr. Maria Elena Connelly
[2016-07-11] MEDS: PANTOPRAZOLE 40 MG TABLET PO SCH (08:23)
[2016-07-11] MEDS: SPIRONOLACTONE 25 MG TABLET PO SCH (08:23)
[2016-07-11] MEDS: FERROUS SULFATE 325 MG TABLET PO SCH (08:23)
[2016-07-11] MEDS: DOCUSATE SODIUM 100 MG CAPSULE PO SCH (08:24)
[2016-07-11] MEDS: oxyCODONE/ACETAMINOPHEN 5-325 MG TABLET PO PRN ×3 (08:24→23:26)
[2016-07-11] MEDS: FUROSEMIDE 20 MG TABLET PO SCH (08:24)
[2016-07-11] MEDS: LISINOPRIL 5 MG TABLET PO SCH (08:24)
[2016-07-11] MEDS: ASPIRIN EC 325 MG TABLET PO SCH (08:24)
[2016-07-11] MEDS: CARVEDILOL 3.125 MG TABLET PO SCH ×2 (08:25→21:28)
[2016-07-11] MEDS: CHLORHEXIDINE 0.12% ORAL RINSE 60 ML BOTTLE SWISH/SPIT SCH ×2 (08:25→21:29)
--- NOTE | 2016-07-11 13:25 | Cardiology Progress Note ---
France Kong April RN, am scribing for, and in the presence of, Deanna Hammond MD 13:23. Assessment and Plan (1) Bilateral carotid artery disease Status: Acute Assessment and plan: This will be addressed as an outpatient. Current Visit: Yes (2) Status post coronary artery bypass grafting Status: Acute Assessment and plan: She is recovering well. Current Visit: Yes (3) Ischemic cardiomyopathy Status: Chronic Current Visit: Yes (4) Mitral regurgitation Status: Chronic Current Visit: Yes (5) NSTEMI (non-ST elevated myocardial infarction) Status: Resolved Current Visit: Yes Cardiology - PN: Subj Interval history: Sitting up in chair in no acute distress. Day 5 postop CABG x 2. She denies any chest pain, only that it hurts at her incision when she takes a deep breath. Mild dyspnea but overall she feels that her breathing is improving every day. Exam (Progress Note) - Constitutional Vitals: Period Temp Pulse Resp BP Sys/Briones Pulse Ox Last 24 Hr 97.2 F-98.4 F 74-82 18-20 83-130/47-60 91-93 Exam: General appearance: normal weight, no acute distress - Head Head exam: Present: normal inspection, normocephalic, atraumatic. Absent: hematoma, laceration - Eye Eye exam: Present: EOMI. Absent: conjunctival injection, nystagmus, periorbital swelling, scleral icterus, laceration to eyelids Pupils: Present: PERRL. Absent: constricted, dilated, fixed, irregular, unequal - ENT ENT exam: Present: normal exam, normal external ear exam - Neck Neck exam: Present: Left internal jugular catheter in place, no surrounding erythema or calor. Absent: lymphadenopathy, meningismus, tenderness, thyromegaly - Respiratory Respiratory exam: Present: Scant crackles in the left base. Absent: accessory muscle use, chest wall tenderness - Cardiovascular Cardiovascular exam: Present: regular rate and rhythm. Absent: carotid bruit, gallop, JVD, rubs - GI/Abdominal GI/Abdominal exam: Present: normal bowel sounds, soft. Absent: distended, firm , guarding, hernia, mass, tenderness, rebound. - Extremities Exam Extremities exam: Present: Vein harvest site, left leg, with wound edges well approximated, and no surrounding erythema, calor. Normal capillary refill. Absent: calf tenderness, edema - Back Exam Back exam: Present: normal inspection. Absent: muscle spasm, vertebral tenderness - Neurological Exam Neurological exam: Present: alert, oriented X3, grossly intact without resting or intention tremor - Psychiatric Psychiatric exam: Present: normal affect, normal mood - Skin Skin exam: Present: normal color, warm, dry, intact. Absent: cyanosis, diaphoretic, rash, urticaria Sternal wound with edges well approximated, there is some surrounding ecchymoses , no surrounding erythema or calor, there is some drainage from the more distal portion of the wound and it is currently dressed. Result/EKG - Labs CBC & BMP: 07/11/16 04:00 07/11/16 03:46 Lab Results: I have reviewed the past 24 hour labs Labs: Laboratory Results - last 24 hr 07/10/16 07/10/16 07/11/16 15:48 19:25 03:46 WBC RBC Hgb Hct MCV MCH MCHC RDW Plt Count MPV Neut % (Auto) Lymph % (Auto) [place] % (Auto) Eos % (Auto) Baso % (Auto) Neut # (Auto) Lymph # (Auto) [place] # (Auto) Eos # (Auto) Baso # (Auto) Immature Gran % Nucleated RBC % Immature Gran # Nucleated RBCs # Sodium 141 Potassium 4.2 Chloride 99 Carbon Dioxide 34 H Anion Gap 12.2 BUN 14 Creatinine 0.80 GFR Calculation 78 BUN/Creatinine Ratio 17.00 Glucose 94 POC Glucose 139 H 129 H Calculated Osmolality 281.3 Calcium 7.9 L Magnesium 2.7 H Total Bilirubin 0.40 Direct Bilirubin 0.1 Indirect Bilirubin 0.3 AST 8 ALT 11 L Alkaline Phosphatase 63 Total Creatine Kinase 76 D CK-MB (CK-2) < 1.0 Troponin I 0.674 H D Total Protein 5.2 L Albumin 2.7 L Globulin 2.5 Albumin/Globulin Ratio 1.0 L 07/11/16 07/11/16 07/11/16 04:00 07:34 11:24 WBC 9.8 RBC 3.79 L Hgb 11.3 L Hct 35.2 L MCV 92.9 MCH 30 MCHC 32.1 RDW 13.9 Plt Count 192 D MPV 11.1 Neut % (Auto) 75.0 H Lymph % (Auto) 12.3 L [place] % (Auto) 7.6 Eos % (Auto) 4.4 Baso % (Auto) 0.2 Neut # (Auto) 7.4 Lymph # (Auto) 1.2 L [place] # (Auto) 0.7 Eos # (Auto) 0.4 Baso # (Auto) 0.0 Immature Gran % 0.5 Nucleated RBC % 0.0 Immature Gran # 0.05 Nucleated RBCs # 0.00 Sodium Potassium Chloride Carbon Dioxide Anion Gap BUN Creatinine GFR Calculation BUN/Creatinine Ratio Glucose POC Glucose 120 H 121 H Calculated Osmolality Calcium Magnesium Total Bilirubin Direct Bilirubin Indirect Bilirubin AST ALT Alkaline Phosphatase Total Creatine Kinase CK-MB (CK-2) Troponin I Total Protein Albumin Globulin Albumin/Globulin Ratio - EKG EKG results: interpreted by me EKG shows: sinus rhythm Quality Measures - VTE Deep Vein Thrombosis/Pulmonary Embolism Present on Admission: No Contraindication to Pharmacological VTE Prophylaxis: High Risk of Bleeding Specialty Discharge - Follow Up or Referrals Manish Kong Jennifer, MD, personally performed the services described in this documentation, ascribed by Mariposa Hough RN in my presence, and it is both accurate and complete 325 .
[2016-07-11] MEDS: ATORVASTATIN 20 MG TABLET PO SCH (21:28)
[2016-07-12 05:42] LABS: Basophils % 0.1 % (0.0-0.8); Eosinophils # 0.4 10*3/uL (0.0-0.87); Eosinophils % 4.1 % (0.00-10.9); Hematocrit 32.8 VOL% (35.7-47.0); Hemoglobin 10.5 GM/DL (12.0-16.0); Immature Granulocytes % 0.7 %; Immature Granulocytes Absolute 0.06 #; Lymphocytes # 1.2 10*3/uL (1.4-4.0); Lymphocytes % 14.2 % (21.3-54.2); Mean Corpuscular Hemoglobin 29 PG (27-34); Mean Corpuscular Volume 91.6 FL (87-102); Mean Platelet Volume 11.4 FL (9.6-12.0); Monocytes # 0.8 10*3/uL (0.11-0.8); Monocytes % 9.8 % (1.7-12.7); Neutrophils # 6.1 10*3/uL (1.4-7.4); Neutrophils % 71.1 % (38.7-73.9); Platelet Count 204 10*3/uL (130-400); Red Blood Count 3.58 10*6/uL (3.8-5.5); Red Cell Distribution Width 14.1 % (9.3-17.3); White Blood Count 8.6 10*3/uL (4.5-13.71)
[2016-07-12 06:18] LABS: Alanine Aminotransferase 11 U/L (13-56); Albumin 2.8 G/DL (3.4-5.0); Alkaline Phosphatase 65 U/L (45-117); Aspartate Amino Transferase 9 U/L (0-37); Bilirubin,Direct 0.1 MG/DL (0.0-0.20); Bilirubin,Indirect 0.7 MG/DL (0.0-1.0); Blood Urea Nitrogen 12 MG/DL (7-18); Calcium 8.2 MG/DL (8.5-10.1); Glucose 96 MG/DL (74-106); Magnesium 2.6 MG/DL (1.8-2.4); Osmolality,Calculated 282.1 MOS/KG (273-304); Potassium 4.3 MMOL/L (3.5-5.1); Sodium 142 MMOL/L (136-145); Total Protein 5.3 G/DL (6.4-8.3)
[2016-07-12 06:19] LABS: Troponin I Only 0.457 NG/ML (0.00-0.045)
--- NOTE | 2016-07-12 06:42 | XRay Report ---
History short of breath Chest, 2 views Comparison 07/11/2016 The heart and vessels are enlarged with continued mild interstitial edema and small bilateral effusions similar on the prior study No new areas of consolidation seen Impression: No significant change in mild congestive failure PROCEDURE INTERPRETED AT [facility] DEPARTMENT OF RADIOLOGY Final Report Signed by: Dr. Maria Elena Connelly
--- NOTE | 2016-07-12 07:15 | EKG Report ---
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
[2016-07-12] MEDS: DOCUSATE SODIUM 100 MG CAPSULE PO SCH (08:40)
[2016-07-12] MEDS: LISINOPRIL 5 MG TABLET PO SCH (08:40)
[2016-07-12] MEDS: CARVEDILOL 3.125 MG TABLET PO SCH ×2 (08:40→21:43)
[2016-07-12] MEDS: FUROSEMIDE 20 MG TABLET PO SCH (08:40)
[2016-07-12] MEDS: ASPIRIN EC 325 MG TABLET PO SCH (08:41)
[2016-07-12] MEDS: FERROUS SULFATE 325 MG TABLET PO SCH (08:41)
[2016-07-12] MEDS: SPIRONOLACTONE 25 MG TABLET PO SCH (08:41)
[2016-07-12] MEDS: PANTOPRAZOLE 40 MG TABLET PO SCH (08:41)
[2016-07-12] MEDS: oxyCODONE/ACETAMINOPHEN 5-325 MG TABLET PO PRN ×4 (08:41→22:34)
[2016-07-12] MEDS: CHLORHEXIDINE 0.12% ORAL RINSE 60 ML BOTTLE SWISH/SPIT SCH ×2 (09:41→21:43)
--- NOTE | 2016-07-12 09:42 | Cardiothoracic Progress Note ---
Cardiothoracic Subjective Interval history: Patient is doing well. She still has generalized soreness. Her vital signs are stable and she is breathing comfortably. I discontinued her pacing wires in anticipation of her discharge tomorrow. Exam (Progress Note) - Constitutional Vitals: Period Temp Pulse Resp BP Sys/Briones Pulse Ox Last 24 Hr 97.2 F-98.2 F 68-87 18-20 99-131/36-57 90-97 Result/EKG - Labs CBC & BMP: 07/12/16 04:00 07/12/16 Unknown Labs: Laboratory Results - last 24 hr 07/11/16 07/11/16 07/11/16 11:24 16:10 18:49 WBC RBC Hgb Hct MCV MCH MCHC RDW Plt Count MPV Neut % (Auto) Lymph % (Auto) [place] % (Auto) Eos % (Auto) Baso % (Auto) Neut # (Auto) Lymph # (Auto) [place] # (Auto) Eos # (Auto) Baso # (Auto) Immature Gran % Nucleated RBC % Immature Gran # Nucleated RBCs # Sodium Potassium Chloride Carbon Dioxide Anion Gap BUN Creatinine GFR Calculation BUN/Creatinine Ratio Glucose POC Glucose 121 H 112 H 144 H Calculated Osmolality Calcium Magnesium Total Bilirubin Direct Bilirubin Indirect Bilirubin AST ALT Alkaline Phosphatase Total Creatine Kinase CK-MB (CK-2) Troponin I Total Protein Albumin Globulin Albumin/Globulin Ratio 07/12/16 07/12/16 07/12/16 04:00 07:04 Unknown WBC 8.6 RBC 3.58 L Hgb 10.5 L Hct 32.8 L MCV 91.6 MCH 29 MCHC 32.0 RDW 14.1 Plt Count 204 MPV 11.4 Neut % (Auto) 71.1 Lymph % (Auto) 14.2 L [place] % (Auto) 9.8 Eos % (Auto) 4.1 Baso % (Auto) 0.1 Neut # (Auto) 6.1 Lymph # (Auto) 1.2 L [place] # (Auto) 0.8 Eos # (Auto) 0.4 Baso # (Auto) 0.0 Immature Gran % 0.7 Nucleated RBC % 0.0 Immature Gran # 0.06 Nucleated RBCs # 0.00 Sodium 142 Potassium 4.3 Chloride 102 Carbon Dioxide 32 Anion Gap 12.3 BUN 12 Creatinine 0.90 GFR Calculation 67 BUN/Creatinine Ratio 13.00 Glucose 96 POC Glucose 105 Calculated Osmolality 282.1 Calcium 8.2 L Magnesium 2.6 H Total Bilirubin 0.80 Direct Bilirubin 0.1 Indirect Bilirubin 0.7 AST 9 ALT 11 L Alkaline Phosphatase 65 Total Creatine Kinase 66 CK-MB (CK-2) < 1.0 Troponin I 0.457 H D Total Protein 5.3 L Albumin 2.8 L Globulin 2.5 Albumin/Globulin Ratio 1.1 Quality Measures - VTE Deep Vein Thrombosis/Pulmonary Embolism Present on Admission: No Contraindication to Pharmacological VTE Prophylaxis: High Risk of Bleeding Specialty Discharge - Follow Up or Referrals
--- NOTE | 2016-07-12 10:05 | Cardiology Progress Note ---
<Mora Ulloa E - Last Filed: 07/12/16 10:01> Assessment and Plan - Time spent with patient Time spent with patient: Greater than 30 minutes (1) NSTEMI (non-ST elevated myocardial infarction) Status: Resolved Assessment and plan: Now revascularized. Continue current plan of care Current Visit: Yes (2) Abnormal stress test Status: Chronic Assessment and plan: Continue current plan of care. Current Visit: Yes (3) History of hyperlipidemia Status: Chronic Assessment and plan: Tolerating lipid-lowering agent. Current Visit: Yes (4) Nicotine dependence Status: Chronic Assessment and plan: Greater than 5 minutes was spent today discussing the merits of tobacco cessation Current Visit: Yes Qualifiers: Nicotine product type: cigarettes (5) CAD (coronary artery disease) Status: Chronic Assessment and plan: Three-vessel CAD now status post CABG. Current Visit: Yes Qualifiers: Coronary Disease-Associated Artery/Lesion type: [place] artery (6) S/P CABG x 2 Status: Chronic Assessment and plan: Continue current plan of care Current Visit: Yes (7) Carotid artery disease Status: Chronic Assessment and plan: Continue current plan of care Current Visit: Yes (8) Ischemic cardiomyopathy Status: Chronic Assessment and plan: EF 25-30%. Continue current plan of care Current Visit: Yes (9) Mitral regurgitation Status: Chronic Assessment and plan: Mild to moderate MR per echo. Continue current plan of care Current Visit: Yes Cardiology - PN: Subj Interval history: Interval history: Ms. Bradshaw, 56WF, who prefers to follow-up with Dr. Prather at discharge, was admitted through the ER [facility] Tuesday, July 05, 2016 for chest pain. She was taken to the cardiac catheterization lab where Dr. Prather performed heart catheterization revealing three-vessel coronary artery disease, EF 25% - 30%. She underwent CABG on Friday and is currently postop day 6. Overnight, she continues to improve. She and I walk around our telemetry unit this morning and she can perform these activities without chest pain, heaviness, tightness or shortness of breath. Her epicardial pacer wires were removed this morning. She is anticipating discharge tomorrow. ASSESSMENT/PLAN: 1. CAD - 3VCAD, S/P CABG. She is tolerating aspirin, beta jelani, ROMIE inhibitor, Lasix, spironolactone and cholesterol-lowering agent 2. S/P CABG - POD 6 JAEGER - LAD, SVG - OM. Continue current plan of care. Progressing nicely. 3. Hypertension - Well-controlled on betablocker and ROMIE inhibitor. 4.. Dyslipidemia - Taking lipid-lowering agent without problems. 5. ICM - EF 25-30%. Continue current plan of care. 6. Tobaccoism - Greater than 5 minutes was spent discussing the merits of tobacco cessation 7. NSTEMI - Resolved. ow revascularized 8. MR - Mild to moderate. 9. Carotid disease - 50-79% stenosis bilateral carotid arteries per carotid US July 03, 2016. Will need further work-up, outpatient, eventually. Exam (Progress Note) - Constitutional Vitals: Period Temp Pulse Resp BP Sys/Briones Pulse Ox Last 24 Hr 97.2 F-98.2 F 68-87 18-20 99-131/36-57 90-97 Exam: General: Appears well with no apparent distress. Pleasant and cooperative. Appears comfortable. HEENT: PERRL, normocephalic, atraumatic. Mucous membranes moist. No jaundice noted. Conjunctiva moist and clear, sclerae anicteric Neck: No JVD/HJR, no thyromegaly or lymphadenopathy noted. No carotid bruit appreciated Cardiac: Regular rate and rhythm. No murmur rub or gallop. Sternotomy healing well without dehiscence or drainage. Lungs: Clear to auscultation without accessory muscle use to assist the respiratory pattern. Not requiring oxygen. Abdomen: Soft, bowel sounds normoactive. Nontender and nondistended. No abdominal bruit or thrill noted. No masses noted. Musculoskeletal: No fluid collection. Decreased range of motion is noted. Extremities: No clubbing, cyanosis noted. No edema noted. Upper extremity pulses 2+. Lower extremity pulses 2+. Capillary refill less than 3 seconds. Incision to left lower extremity healing well without dehiscence or drainage. Skin: No unusual lesions or rashes. No skin breakdown appreciated. Neuro: Awake, alert and oriented 3. Moves all extremities well without hemiparesis or paralysis. No essential tremor is appreciated. Result/EKG - Labs CBC & BMP: 07/12/16 04:00 07/12/16 Unknown Lab Results: I have reviewed the past 24 hour labs Labs: Laboratory Results - last 24 hr 07/11/16 07/11/16 07/11/16 11:24 16:10 18:49 WBC RBC Hgb Hct MCV MCH MCHC RDW Plt Count MPV Neut % (Auto) Lymph % (Auto) [place] % (Auto) Eos % (Auto) Baso % (Auto) Neut # (Auto) Lymph # (Auto) [place] # (Auto) Eos # (Auto) Baso # (Auto) Immature Gran % Nucleated RBC % Immature Gran # Nucleated RBCs # Sodium Potassium Chloride Carbon Dioxide Anion Gap BUN Creatinine GFR Calculation BUN/Creatinine Ratio Glucose POC Glucose 121 H 112 H 144 H Calculated Osmolality Calcium Magnesium Total Bilirubin Direct Bilirubin Indirect Bilirubin AST ALT Alkaline Phosphatase Total Creatine Kinase CK-MB (CK-2) Troponin I Total Protein Albumin Globulin Albumin/Globulin Ratio 07/12/16 07/12/16 07/12/16 04:00 07:04 Unknown WBC 8.6 RBC 3.58 L Hgb 10.5 L Hct 32.8 L MCV 91.6 MCH 29 MCHC 32.0 RDW 14.1 Plt Count 204 MPV 11.4 Neut % (Auto) 71.1 Lymph % (Auto) 14.2 L [place] % (Auto) 9.8 Eos % (Auto) 4.1 Baso % (Auto) 0.1 Neut # (Auto) 6.1 Lymph # (Auto) 1.2 L [place] # (Auto) 0.8 Eos # (Auto) 0.4 Baso # (Auto) 0.0 Immature Gran % 0.7 Nucleated RBC % 0.0 Immature Gran # 0.06 Nucleated RBCs # 0.00 Sodium 142 Potassium 4.3 Chloride 102 Carbon Dioxide 32 Anion Gap 12.3 BUN 12 Creatinine 0.90 GFR Calculation 67 BUN/Creatinine Ratio 13.00 Glucose 96 POC Glucose 105 Calculated Osmolality 282.1 Calcium 8.2 L Magnesium 2.6 H Total Bilirubin 0.80 Direct Bilirubin 0.1 Indirect Bilirubin 0.7 AST 9 ALT 11 L Alkaline Phosphatase 65 Total Creatine Kinase 66 CK-MB (CK-2) < 1.0 Troponin I 0.457 H D Total Protein 5.3 L Albumin 2.8 L Globulin 2.5 Albumin/Globulin Ratio 1.1 - Diagnostic Findings Procedure: Chest x-ray: report reviewed by me - EKG EKG results: interpreted by me EKG shows: sinus rhythm Quality Measures - VTE Deep Vein Thrombosis/Pulmonary Embolism Present on Admission: No Contraindication to Pharmacological VTE Prophylaxis: High Risk of Bleeding Specialty Discharge - Follow Up or Referrals Follow up with: Doe Correia MD [Physician] - 08/13/16 10:00 am Armaan Prather MD [Physician] - 07/26/16 8:00 am (3 weeks BMP, Mg, CBC at visit) <ManishDeanna - Last Filed: 07/12/16 19:17> Assessment and Plan (1) Bilateral carotid artery disease Status: Acute Current Visit: Yes (2) Status post coronary artery bypass grafting Status: Acute Current Visit: Yes (3) Ischemic cardiomyopathy Status: Chronic Current Visit: Yes (4) Mitral regurgitation Status: Chronic Current Visit: Yes (5) NSTEMI (non-ST elevated myocardial infarction) Status: Resolved Current Visit: Yes Cardiology - PN: Subj Interval history: I personally interviewed and examined the patient, reviewed the chart and discussed medical decision-making with practitioner Artemio. I have read this note and agree with the findings as documented herein. Exam (Progress Note) - Constitutional Vitals: Period Temp Pulse Resp BP Sys/Briones Pulse Ox Last 24 Hr 96.9 F-98.2 F 68-87 18-20 105-131/36-67 90-95 Result/EKG - Labs CBC & BMP: 07/12/16 04:00 07/12/16 Unknown Labs: Laboratory Results - last 24 hr 07/11/16 07/12/16 07/12/16 18:49 04:00 07:04 WBC 8.6 RBC 3.58 L Hgb 10.5 L Hct 32.8 L MCV 91.6 MCH 29 MCHC 32.0 RDW 14.1 Plt Count 204 MPV 11.4 Neut % (Auto) 71.1 Lymph % (Auto) 14.2 L [place] % (Auto) 9.8 Eos % (Auto) 4.1 Baso % (Auto) 0.1 Neut # (Auto) 6.1 Lymph # (Auto) 1.2 L [place] # (Auto) 0.8 Eos # (Auto) 0.4 Baso # (Auto) 0.0 Immature Gran % 0.7 Nucleated RBC % 0.0 Immature Gran # 0.06 Nucleated RBCs # 0.00 Sodium Potassium Chloride Carbon Dioxide Anion Gap BUN Creatinine GFR Calculation BUN/Creatinine Ratio Glucose POC Glucose 144 H 105 Calculated Osmolality Calcium Magnesium Total Bilirubin Direct Bilirubin Indirect Bilirubin AST ALT Alkaline Phosphatase Total Creatine Kinase CK-MB (CK-2) Troponin I Total Protein Albumin Globulin Albumin/Globulin Ratio 07/12/16 07/12/16 07/12/16 11:30 16:01 Unknown WBC RBC Hgb Hct MCV MCH MCHC RDW Plt Count MPV Neut % (Auto) Lymph % (Auto) [place] % (Auto) Eos % (Auto) Baso % (Auto) Neut # (Auto) Lymph # (Auto) [place] # (Auto) Eos # (Auto) Baso # (Auto) Immature Gran % Nucleated RBC % Immature Gran # Nucleated RBCs # Sodium 142 Potassium 4.3 Chloride 102 Carbon Dioxide 32 Anion Gap 12.3 BUN 12 Creatinine 0.90 GFR Calculation 67 BUN/Creatinine Ratio 13.00 Glucose 96 POC Glucose 106 120 H Calculated Osmolality 282.1 Calcium 8.2 L Magnesium 2.6 H Total Bilirubin 0.80 Direct Bilirubin 0.1 Indirect Bilirubin 0.7 AST 9 ALT 11 L Alkaline Phosphatase 65 Total Creatine Kinase 66 CK-MB (CK-2) < 1.0 Troponin I 0.457 H D Total Protein 5.3 L Albumin 2.8 L Globulin 2.5 Albumin/Globulin Ratio 1.1
[2016-07-12] MEDS: ATORVASTATIN 20 MG TABLET PO SCH (21:43)
[2016-07-13] MEDS: oxyCODONE/ACETAMINOPHEN 5-325 MG TABLET PO PRN (07:45)
[2016-07-13 08:32] VITALS: BP 125/61
[2016-07-13] MEDS: CHLORHEXIDINE 0.12% ORAL RINSE 60 ML BOTTLE SWISH/SPIT SCH (08:56)
[2016-07-13] MEDS: DOCUSATE SODIUM 100 MG CAPSULE PO SCH (08:56)
[2016-07-13] MEDS: LISINOPRIL 5 MG TABLET PO SCH (08:56)
[2016-07-13] MEDS: PANTOPRAZOLE 40 MG TABLET PO SCH (08:56)
[2016-07-13] MEDS: FUROSEMIDE 20 MG TABLET PO SCH (08:56)
[2016-07-13] MEDS: ASPIRIN EC 325 MG TABLET PO SCH (08:56)
[2016-07-13] MEDS: CARVEDILOL 3.125 MG TABLET PO SCH (08:56)
[2016-07-13] MEDS: SPIRONOLACTONE 25 MG TABLET PO SCH (08:56)
[2016-07-13] MEDS: FERROUS SULFATE 325 MG TABLET PO SCH (08:56)
--- NOTE | 2016-07-13 09:20 | Discharge Summary ---
Hospital Course - Hospital Course Hospital Course: History of present illness: Patient is a 56-year-old lady who presented with a sudden onset of substernal chest discomfort. He came to the emergency room where she was diagnosed with acute coronary syndrome and recommended for urgent cardiac catheterization. Past medical history is significant for history of cigarette smoking but otherwise she is without her cardiac history. She does have a history of hypertension. Past medical history review of systems social history and family history are documented in her admission notes. Hospital course: Patient was taken to the cardiac metallurgical laboratory assistant where diagnosis of critical coronary disease was made and she was referred for urgent bypass surgery. She was taken to the operating room and bypass grafting was performed without incident and her postoperative course was essentially uncomplicated. She was discharged home on the seventh postoperative day with instructions to return for follow-up in 1 month. Discharge medications are listed below. Specialty Discharge - Follow Up or Referrals Follow up with: Doe Correia MD [Physician] - 08/13/16 10:00 am Armaan Prather MD [Physician] - 07/26/16 8:00 am (3 weeks BMP, Mg, CBC at visit) Discharge Plan - Discharge Data Disposition: Disch To Home/Self Care Condition at Discharge: Stable Discharge Diet: advance to your usual diet Activity: resume usual activities as tolerated Hygiene: no restrictions Weight Bearing at Discharge: full weight bearing Driving: not for (10 days) - Discharge Medications Continue amLODIPine [Norvasc] 10 mg PO DAILY Nitroglycerin Sl Tab [Nitrostat] 0.4 mg PO Q5M PRN PRN Reason: Chest Pain Oxycodone HCl/Acetaminophen [Oxycodone-Acetaminophen 10-325] 1 tablet PO DAILY PRN PRN Reason: BACK PAIN Gabapentin 300 mg PO BID Discontinued predniSONE TAB [PredniSONE] See Taper PO DAILY - Follow Up or Referral Follow Up: Doe Correia MD [Physician] - 08/13/16 10:00 am Armaan Prather MD [Physician] - 07/26/16 8:00 am (3 weeks BMP, Mg, CBC at visit) - Forms/Instructions Instructions: Heart Healthy Diet (GEN), Cigarette Smoking and Your Health (GEN) , Coronary Artery Bypass Graft, Job Tracer (GEN), Sternal Precautions, Job Tracer (GEN) Exam - Constitutional Vitals: Period Temp Pulse Resp BP Sys/Briones Pulse Ox Last 24 Hr 96.9 F-99.0 F 66-76 16-20 97-125/46-67 90-95 Discharge Results Procedures and tests throughout hospitalization: Pending Orders 07/05/16 18:17 Fresh Frozen Plasma Routine Single Donor Platelets Routine Labs on day of discharge: Labs from last 24 hours 07/13/16 07/12/16 07/12/16 07:54 20:43 16:01 POC Glucose 109 H 130 H 120 H 07/12/16 11:30 POC Glucose 106 DS: Provider Date of admission: 07/05/16 16:45 Primary care physician: Alivia Sosa NP Attending physician on admission: Armaan Prather MD Consults: 07/05/16 17:29 Consult to Dietitian [CONS] Routine Reason for Dietitian: Other Consult Comment: low salt, low cholesterol, diet 07/07/16 07:57 Consult to Cardiac Rehabilitation [CONS] Routine Reason for Cardiac Rehabilitation: Other Consult Comment: Post CABG/heart surgery Consult to Diabetes Center, Educator [CONS] Routine Reason for Bobbin Marker: Diabetes Education Initial Insulin Education Consult Comment: insulin education Consult to Dietitian [CONS] Routine Reason for Dietitian: Dietary Consult Consult Comment: Cardiac, low salt, low cholesterol diet Consult to Physical Therapy [CONS] Routine Reason for Physical Therapy: Other Consult Comment: CV Rehab Consult to Physician [CONS] Routine Comment: Management of diabetes Consulting Provider: Consult to Specialist Group: Hospitalist Person Notified: WAS PAGED MORNING OF 07/10/16 Discharging clinician: Doe Correia MD Expected date of discharge: 07/13/16
== END 2016-07-13 10:37 | disposition home or self-care (01) | DRG 234 ==
LOC: N.ED 13:57 → N.CC 15:40 → N.EDINP 16:45 → N.CC 17:58 → N.CVR 07-06 10:13 → N.TELES 07-07 10:55
PROVIDERS: ADMIT Internal Medicine Cardiovascular Disease; ATTEND Internal Medicine Cardiovascular Disease
PROC: CLCCHCL (ICD-10-PCS; 2016-07-05 16:15)